=== PATIENT | female | born 1975 | race Caucasian/White ===

== ENCOUNTER 2016-07-15 03:24 | Emergency (ER) | payer OTHER ==
[2016-07-15] MEDS ORDERED: SODIUM CHLORIDE 1,000 ML IV STA ×3 (04:04→08:06)
[2016-07-15] MEDS ORDERED: ONDANSETRON 4 MG/2 ML VIAL IVPUSH ONE (04:04)
[2016-07-15] MEDS ORDERED: morphine CARPU-JECT 4 MG/1 ML DISP.SYRIN IVPUSH ONE (04:04)
[2016-07-15] MEDS ORDERED: morphine CARPU-JECT 4 MG/1 ML DISP.SYRIN ONE (04:13)
[2016-07-15] MEDS ORDERED: ONDANSETRON 4 MG/2 ML VIAL ONE (04:14)
[2016-07-15 04:21] VITALS: BMI 31.3
--- NOTE | 2016-07-15 04:41 | PDOC ---
History of Present Illness - General Chief Complaint: Vomiting/Diarrhea Stated Complaint: VOMITING, DIARRHEA, SOB Time Seen by Provider: 07/15/16 03:49 History Source: Patient Exam Limitations: No Limitations - History of Present Illness Travel History: No Initial Comments: 07/15/16 04:36 41yo Female patient w/ PmHx: Pancreatitis, EtoH dependence presents to ED c/o abd pain, chronic diarrhea and vomiting that began at midnight. Patient reports last drink yesterday. She denies any other complaints at this time. Timing/Duration: reports: getting worse Quality: reports: moderate Abdominal Pain Onset Location: reports: epigastric Pain Radiation: reports: no radiation Activities at Onset: reports: none Treatment Prior to Arrive: worse with: analgesics, antacids, cold pack, heat, laxative, enema, other Aggravating Factors: worse with: None, Defecation, Eating, Emotional upset, Exertion, [place], Movement, Voiding, Change in position Alleviating Factors: worse with: None, Belching, Shallow Breathing, Defecation, Eating, Holding Breath, Passing Gas, Change in Position, Rest, Voiding, Vomiting Past History - Travel Traveled outside of the country in the last 30 days: No Close contact w/someone who was outside of country & ill: No - Past Medical History Allergies/Adverse Reactions: Allergies Allergy/AdvReac Type Severity Reaction Status Date / Time No Known Allergies Allergy Verified 02/29/16 05:55 Home Medications: Ambulatory Orders Calcium Citrate/Vitamin D2 [Joseph-Citrate Plus Vitamin D Tab] 1 each PO DAILY #30 tablet 03/03/16 Thiamine HCl [Vitamin B1 -] 100 mg PO DAILY #30 tablet 03/03/16 Asthma: No Cardiac Disorders: No COPD: No Diabetes: No GI Disorders: Yes (PANCREATITIS) Disorders: No HTN: No Hypercholesterolemia: Yes Kidney Stones: No Suicide Attempt (Hx): No Seizures: No - Surgical History Abdominal Surgery: No Appendectomy: Yes (1984) Cardiac Surgery: No Cholecystectomy: No Lung Surgery: No Neurologic Surgery: No Orthopedic Surgery: No - Immunization History Immunization Up to Date: Yes - Psycho/Social/Smoking Cessation Hx Anxiety: No Suicidal Ideation: No Smoking Status: No Smoking History: Unknown if ever smoked Have you smoked in the past 12 months: No Number of Cigarettes Smoked Daily: 0 Hx Alcohol Use: No Drug/Substance Use Hx: No Substance Use Type: Alcohol Hx Substance Use Treatment: No Abd/GI Specific PMHX - Complaint Specific PMHX Hepatitis: No Pancreatitis: No Review of Systems - Review of Systems Able to Perform ROS?: Yes Is the patient limited Prydeinig proficient: No Constitutional: No: Chills, Fever Respiratory: No: Cough, Shortness of Breath, Stridor, Wheezing Cardiac (ROS): No: Chest Pain, Edema, Lightheadedness, Palpitations, Syncope, Chest Tightness ABD/GI: Yes: Diarrhea, Nausea, Poor Appetite, Poor Fluid Intake, Vomiting, Abdominal cramping. No: Blood Streaked Bowels, Constipated, Rectal Bleeding, Indigestion : No: Burning, Dysuria, Discharge, Hematuria Musculoskeletal: No: Back Pain Integumentary: No: Bruising, Erythema, Pruritus, Rash, Sweating Neurological: No: Headache, Numbness, Seizure, Tingling, Tremors All Other Systems: Reviewed and Negative *Physical Exam - Vital Signs Last Vital Signs Temp Pulse Resp BP Pulse Ox 97.6 F 120 H 20 140/100 100 07/15/16 04:05 07/15/16 04:05 07/15/16 04:05 07/15/16 04:05 07/15/16 04:05 - Physical Exam General Appearance: Yes: Nourished, Appropriately Dressed, Mild Distress. No: Apparent Distress, Moderate Distress, Severe Distress HEENT: positive: EOMI, SASHA, Normal ENT Inspection, Normal Voice, Symmetrical, TMs Normal, Pharynx Normal. negative: Photophobia, Tonsillar Erythema, Nasal Congestion, Rhinorrhea, TM Bulging, TM Dull, TM Erythema Neck: positive: Trachea midline, Supple. negative: Tender, Normal Thyroid, Rigid, Carotid bruit, Stridor, Lymphadenopathy (R), Lymphadenopathy (L) Respiratory/Chest: positive: Lungs Clear, Normal Breath Sounds. negative: Chest Tender, Respiratory Distress, Accessory Muscle Use, Labored Respiration, Rapid RR Cardiovascular: positive: Regular Rhythm, Regular Rate. negative: Edema, JVD, Murmur Gastrointestinal/Abdominal: positive: Normal Bowel Sounds, Tender (Generalized) , Soft, Tenderness. negative: Distended, Guarding, Rebound Musculoskeletal: positive: Normal Inspection. 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
--- NOTE | 2016-07-15 04:44 | PDOC ---
*Physical Exam - Vital Signs Last Vital Signs Temp Pulse Resp BP Pulse Ox 97.6 F 120 H 20 140/100 100 07/15/16 04:05 07/15/16 04:05 07/15/16 04:05 07/15/16 04:05 07/15/16 04:05 ED Treatment Course - LABORATORY CBC & Chemistry Diagram: 07/15/16 04:33 07/15/16 06:20 Medical Decision Making - Medical Decision Making 07/15/16 04:44 agree with care from DARIO Mueller *DC/Admit/Observation/Transfer Diagnosis at time of Disposition: Alcohol dependence, EtOH dependence, Hypomagnesemia, Epigastric abdominal pain - Discharge Dispostion Disposition: HOME Condition at time of disposition: Improved - Referrals Referrals: Solo Tolliver DO [Primary Care Provider] - - Patient Instructions Printed Discharge Instructions: Magnesium, DI for Epigastric Pain, DI for Alcoholic Gastritis Additional Instructions: Please take your acid reflux medication as prescribed and of pain from alcohol use. Please eat small frequent well-balanced meals and stay well-hydrated. Please up with your PCP and travel assistant as needed. Otherwise return to ED if symptoms worsen.
[2016-07-15 04:45] LABS: BASOPHIL 0.3 % (0-2.0); EOSINOPHIL 0.3 % (0-4.5); MCH 35.7 pg (25.7-33.7); MEAN CELL VOLUME 105.2 fl (80-96); MEAN PLT VOLUME 10.9 fl (7.5-11.1); NEUTROPHILS 88.9 % (42.8-82.8); PLATELET COUNT 153 K/MM3 (134-434); RDW 16.9 % (11.6-15.6); WHITE BLOOD COUNT 8.8 K/mm3 (4.0-10.0)
[2016-07-15] MEDS ORDERED: PANTOPRAZOLE SODIUM 40 MG in SODIUM CHLORIDE 100 ML IVPB ONE (04:55)
[2016-07-15] MEDS ORDERED: PANTOPRAZOLE SODIUM 100 ML IVPB ONE (06:00)
--- NOTE | 2016-07-15 06:05 | PDOC ---
*Physical Exam - Vital Signs Last Vital Signs Temp Pulse Resp BP Pulse Ox 97.6 F 120 H 20 140/100 100 07/15/16 04:05 07/15/16 04:05 07/15/16 04:05 07/15/16 04:05 07/15/16 04:05 ED Treatment Course - LABORATORY CBC & Chemistry Diagram: 07/15/16 04:33 07/15/16 06:20 - ADDITIONAL ORDERS Additional order review: Laboratory Results 07/15/16 07/15/16 04:40 04:33 Sodium Cancelled Potassium Cancelled Chloride Cancelled Carbon Dioxide Cancelled Anion Gap Cancelled BUN Cancelled Creatinine Cancelled Creat Clearance w eGFR Cancelled Random Glucose Cancelled Calcium Cancelled Total Bilirubin Cancelled AST Cancelled ALT Cancelled Alkaline Phosphatase Cancelled Creatine Kinase Cancelled Troponin I Cancelled Total Protein Cancelled Albumin Cancelled Total Amylase Cancelled Lipase Cancelled Alcohol, Quantitative 11.3 H* 07/15/16 04:33 RBC 4.20 MCV 105.2 H MCHC 34.0 RDW 16.9 H MPV 10.9 D Neutrophils % 88.9 H D Lymphocytes % 5.8 L D Monocytes % 4.7 Eosinophils % 0.3 Basophils % 0.3 Medical Decision Making - Medical Decision Making 07/15/16 06:00 Patient received in sign out from Britton Mueller. Patient complaining of mid upper abdominal sharp pain since last night. Patient states has history of pancreatitis but also drinks alcohol daily with the last drink at around 10 PM yesterday. Patient also states history of acid reflux. chemistries including lipase and mag pending. Patient also pending Protonix infusion. Patient ordered for second bag of IV fluids secondary to heart rate of 108 at rest which may be likely due to dehydration versus withdrawal. Patient's previous MRI done 2016 shows hepatomegaly with severe fatty infiltration of the liver versus hepatocellular disease. Recommendations to follow-up MRI without and with IV and gadolinium in 4 months. 07/15/16 09:42 Laboratory Tests 07/15/16 07/15/16 06:20 08:25 Magnesium 0.9 L D 1.7 L D Lipase 60 L Pt given 2 grams of magnesium along with 3rd nag of IVF. Pt states feeling better. Pt will be discharged home and recommend abstaining from alcohol. Patient slightly tachycardic. Patient revitalized and has an oral temperature 100.0. Patient ordered for Motrin. 07/15/16 11:07 Patient's heart rate remains at 105-109. Patient pending urinalysis urine and ordered for 1 mg Ativan along with an abdominal CT with IV and by mouth contrast. 07/15/16 11:29 Laboratory Tests 07/15/16 07/15/16 10:55 10:55 Urine Ketones Trace H Urine HCG, Qual Negative 07/15/16 14:04 CT shows marked hepatomegaly with diffuse fatty infiltration. Thickening of the proximal small bowel loops in the mid and right side of the abdomen consistent with enteritis. Inflammatory versus infectious. There is also small amount of free fluid in the right lower quadrant and in the pelvis. Nonvisualization of the appendix. Patient will be discharged home. heart rate 96. *DC/Admit/Observation/Transfer Diagnosis at time of Disposition: Alcohol dependence, Hypomagnesemia, Epigastric abdominal pain EtOH dependence Qualifiers: Substance use status: uncomplicated Qualified Code(s): F10.20 - Alcohol dependence, uncomplicated - Discharge Dispostion Disposition: HOME Condition at time of disposition: Improved - Referrals Referrals: Solo Tolliver DO [Primary Care Provider] - - Patient Instructions Printed Discharge Instructions: DI for Epigastric Pain, Magnesium, DI for Alcoholic Gastritis Additional Instructions: Please take your acid reflux medication as prescribed and of pain from alcohol use. Please eat small frequent well-balanced meals and stay well-hydrated. Please up with your PCP and gas distribution plant operator as needed. Otherwise return to ED if symptoms worsen.
[2016-07-15] MEDS ORDERED: LORAZEPAM CARPU-JECT 2 MG/ML DISP.SYRIN IVPUSH ONE ×2 (06:21→11:03)
[2016-07-15] MEDS ORDERED: LORazepam 2 MG/ML SDV VIAL ONE (06:28)
[2016-07-15 06:58] LABS: MAGNESIUM 0.9 mg/dL (1.8-2.4)
[2016-07-15] MEDS ORDERED: MAGNESIUM SULF 50% (8.12 MEQ/2 ML-1 GM VIAL) IVPB ONE (07:02)
[2016-07-15 07:04] LABS: ALBUMIN 3.2 g/dl (3.4-5.0); ALK PHOS 86 U/L (45-117); ANION GAP 13 (8-16); BILIRUBIN,TOTAL 0.9 mg/dL (0.2-1.0); CALCIUM 7.7 mg/dL (8.5-10.1); CO2 24 mmol/L (21-32); COCKROFT - GAULT 149.9315; CREATININE 0.7 mg/dL (0.55-1.02); GLUCOSE,RANDOM 115 mg/dL (74-106); SGOT/AST 47 U/L (15-37); SGPT/ALT 99 U/L (12-78)
[2016-07-15 07:17] LABS: ANISOCYTOSIS 2+; PLATELET ESTIMATE ADEQUATE (NORMAL)
[2016-07-15] MEDS ORDERED: MAGNESIUM SULF 50% (8.12 MEQ/2 ML-1 GM VIAL) ONE (07:24)
[2016-07-15] MEDS ORDERED: IBUPROFEN 600 MG TABLET (FP) PO ONE ×2 (10:00)
[2016-07-15 10:42] VITALS: TEMP 100
[2016-07-15] MEDS ORDERED: LORAZEPAM CARPU-JECT 2 MG/ML DISP.SYRIN ONE (11:05)
--- NOTE | 2016-07-15 11:19 | EKG ---
Test Reason : Blood Pressure : / mmHG Vent. Rate : 114 BPM Atrial Rate : 114 BPM P-R Int : 138 ms QRS Dur : 070 ms QT Int : 344 ms P-R-T Axes : 041 066 055 degrees QTc Int : 474 ms SINUS TACHYCARDIA OTHERWISE NORMAL ECG WHEN COMPARED WITH ECG OF 29-FEB-2016 07:42, NO SIGNIFICANT CHANGE WAS FOUND Confirmed by JOSEPH SAMUELS MD ([id number]) on 07/15/2016 11:18:48 AM Referred By: Confirmed By:JOSEPH SAMUELS MD
[2016-07-15 11:24] LABS: URINE APPEARANCE CLEAR; URINE BILIRUBIN NEGATIVE (NEGATIVE); URINE BLOOD NEGATIVE (NEGATIVE); URINE COLOR YELLOW; URINE GLUCOSE (UA) NEGATIVE (NEGATIVE); URINE KETONE TRACE (NEGATIVE); URINE LEUK ESTERASE NEGATIVE (NEGATIVE); URINE NITRITE NEGATIVE (NEGATIVE); URINE PROTEIN NEGATIVE (NEGATIVE); URINE UROBILINOGEN NEGATIVE E.U./dl (0.2-1.0)
[2016-07-15 14:34] VITALS: BP 106/80; PULSE 96
== END 2016-07-15 14:35 | disposition home or self-care (01) ==
LOC: JER 03:24
PROC: 3E033NZ Introduction of Analgesics, Hypnotics, Sedatives into Peripheral Vein, Percutaneous Approach (ICD-10-PCS; principal; 2016-07-15)
PROC: 3E033GC Introduction of Other Therapeutic Substance into Peripheral Vein, Percutaneous Approach (ICD-10-PCS; 2016-07-15)
PROC: 3E0337Z Introduction of Electrolytic and Water Balance Substance into Peripheral Vein, Percutaneous Approach (ICD-10-PCS; 2016-07-15)
DX: F10.20 Alcohol dependence, uncomplicated (principal); R10.13 Epigastric pain; E83.42 Hypomagnesemia; K21.9 Gastro-esophageal reflux disease without esophagitis; K86.0 Alcohol-induced chronic pancreatitis; E78.00 Pure hypercholesterolemia, unspecified
CPT/HCPCS: 36415; 74177-TC; 80053; 80307; 81003; 83690; 83735; 84703; 85025; 93005; 93010; 96361; 96365; 96375; 96376; 99284-25; Q9967

== ENCOUNTER 2016-10-11 15:17 | Observation (INO) | payer OTHER ==
[2016-10-11] MEDS ORDERED: methylPREDNISolone NA SUCC 125 MG/2 ML VIAL ONE (16:23)
[2016-10-11] MEDS ORDERED: FAMOTIDINE 20 MG/50 ML IVPB 50 ML IVPB ONE (16:26)
[2016-10-11] MEDS ORDERED: methylPREDNISolone NA SUCC 125 MG/2 ML VIAL IVPB ONE (16:28)
[2016-10-11] MEDS ORDERED: SODIUM CHLORIDE 1,000 ML IV STA (16:28)
[2016-10-11] MEDS ORDERED: ALBUTEROL SO4 2.5/IPRATROPIUM 0.5 INH SOL 3 ML VIAL.NEB. NEB ONE (16:32)
[2016-10-11] MEDS ORDERED: ONDANSETRON 4 MG/2 ML VIAL IVPUSH ONE (16:35)
[2016-10-11 17:15] LABS: ALK PHOS 131 U/L (45-117); ANION GAP 20 (8-16); BILIRUBIN,TOTAL 1.5 mg/dL (0.2-1.0); CALCIUM 9.5 mg/dL (8.5-10.1); CO2 26 mmol/L (21-32); CREATININE 0.7 mg/dL (0.55-1.02); GLUCOSE,RANDOM 138 mg/dL (74-106); SGOT/AST 126 U/L (15-37); SGPT/ALT 142 U/L (12-78); TOT PROT 7.7 g/dl (6.4-8.2)
--- NOTE | 2016-10-11 17:15 | PDOC ---
History of Present Illness <Junito Garay - Last Filed: 10/12/16 00:48> - General History Source: Patient Exam Limitations: No Limitations - History of Present Illness Initial Comments: 10/11/16 17:16 41-year-old female with history of pancreatitis, alcohol abuse, and anxiety presents to the ED with complaints of vomiting this morning without abdominal pain causing her mild this. Patient states took a magnesium tablet since when she vomits she normally has a low magnesium and was recommended by her physician to take a magnesium tablet. Patient states following swallowing the magnesium tablet she had the feeling as if something was lodged in her throat causing her increased salivation and increased anxiety. Patient currently denies difficulty breathing, abdominal pain, dizziness, or chest pain. Patient does state feeling as if something is stuck in her throat and has increased anxiety. Patient states last drink was yesterday evening. Timing/Duration: 1-3 hours Severity: moderate Associated Symptoms: reports: nausea/vomiting. denies: shortness of breath <Mandi Biggs - Last Filed: 10/12/16 13:45> - General Chief Complaint: Shortness of Breath Stated Complaint: SHORTNESS OF BREATH Time Seen by Provider: 10/11/16 15:42 Past History <Junito Garay - Last Filed: 10/12/16 00:48> - Travel Traveled outside of the country in the last 30 days: No Close contact w/someone who was outside of country & ill: No - Past Medical History Asthma: No Cardiac Disorders: No COPD: No Diabetes: No GI Disorders: Yes (PANCREATITIS) Disorders: No HTN: No Hypercholesterolemia: Yes Kidney Stones: No Suicide Attempt (Hx): No Seizures: No - Surgical History Abdominal Surgery: No Appendectomy: Yes (1984) Cardiac Surgery: No Cholecystectomy: No Lung Surgery: No Neurologic Surgery: No Orthopedic Surgery: No - Immunization History Immunization Up to Date: Yes - Psycho/Social/Smoking Cessation Hx Anxiety: No Suicidal Ideation: No Smoking Status: No Smoking History: Never smoked Have you smoked in the past 12 months: No Number of Cigarettes Smoked Daily: 0 Hx Alcohol Use: Yes (3 bottles of wine/night) Drug/Substance Use Hx: No Substance Use Type: Alcohol Hx Substance Use Treatment: No Patient Lives Alone: No Lives with/in: spouse/SO <Mandi Biggs - Last Filed: 10/12/16 13:45> - Past Medical History Allergies/Adverse Reactions: Allergies Allergy/AdvReac Type Severity Reaction Status Date / Time No Known Allergies Allergy Verified 10/11/16 19:48 Home Medications: Ambulatory Orders Lipase/Protease/Amylase [Abdiaziz Bingham 36,000 Units Capsule] 1 each PO TID 07/15/16 Quetiapine Fumarate [Seroquel -] 25 mg PO HS 07/15/16 Tramadol HCl [Ultram] 50 mg PO Q6H 07/15/16 Review of Systems - Review of Systems Able to Perform ROS?: Yes Constitutional: No: Symptoms Reported HEENTM: Yes: Difficulty Swallowing Respiratory: No: Symptoms reported Cardiac (ROS): No: Symptoms Reported ABD/GI: Yes: Nausea, Vomiting. No: Abdominal cramping Musculoskeletal: No: Symptoms Reported Integumentary: No: Symptoms Reported Neurological: No: Symptoms reported, Dizziness Psychiatric: Yes: Anxiety Endocrine: No: Symptoms Reported <Mandi Biggs - Last Filed: 10/12/16 13:45> *Physical Exam - Vital Signs Last Vital Signs Temp Pulse Resp BP Pulse Ox 97.9 F 96 H 16 146/82 99 10/11/16 15:30 10/11/16 22:46 10/11/16 22:46 10/11/16 22:46 10/11/16 22:46 <Junito Garay - Last Filed: 10/12/16 00:48> - Vital Signs Last Vital Signs Temp Pulse Resp BP Pulse Ox 97.9 F 117 H 24 152/67 97 10/11/16 15:30 10/11/16 15:30 10/11/16 15:30 10/11/16 15:30 10/11/16 15:30 - Physical Exam General Appearance: Yes: Nourished, Appropriately Dressed, Mild Distress HEENT: positive: EOMI, SASHA, TMs Normal, Pharynx Normal (Uvula midline and non- elongated but slightly widened), Muffled/Hoarse voice, Other (no trismus. no drooling). negative: Pharyngeal Erythema, Tonsillar Exudate, Tonsillar Erythema Neck: positive: Normal Thyroid, Supple. negative: Lymphadenopathy (R), Lymphadenopathy (L) Respiratory/Chest: positive: Lungs Clear, Normal Breath Sounds. negative: Respiratory Distress, Accessory Muscle Use, Stridor, Wheezing Cardiovascular: positive: Regular Rhythm, Tachycardia. negative: Murmur Gastrointestinal/Abdominal: positive: Soft. negative: Tenderness Integumentary: positive: Normal Color, Warm, Moist Neurologic: positive: Motor Strength 5/5. negative: Normal Mood/Affect (mildly anxious) <Mandi Biggs - Last Filed: 10/12/16 13:45> ED Treatment Course - LABORATORY CBC & Chemistry Diagram: 10/11/16 16:40 10/11/16 16:40 - ADDITIONAL ORDERS Additional order review: Laboratory Results 10/11/16 10/11/16 10/11/16 16:42 16:40 16:40 Sodium 139 Potassium 3.1 L Chloride 93 L D Carbon Dioxide 26 Anion Gap 20 H BUN 11 D Creatinine 0.7 Creat Clearance w eGFR > 60 Random Glucose 138 H Calcium 9.5 D Magnesium 1.8 Total Bilirubin 1.5 H D AST 126 H D ALT 142 H D Alkaline Phosphatase 131 H D Creatine Kinase Troponin I Total Protein 7.7 D Albumin 4.0 D Urine HCG, Qual Negative 10/11/16 16:30 Sodium Potassium Chloride Carbon Dioxide Anion Gap BUN Creatinine Creat Clearance w eGFR Random Glucose Calcium Magnesium Total Bilirubin AST ALT Alkaline Phosphatase Creatine Kinase 54 Troponin I < 0.02 Total Protein Albumin Urine HCG, Qual 10/11/16 16:40 RBC 4.43 MCV 102.3 H MCHC 34.9 RDW 14.0 D MPV 9.7 D Neutrophils % Y Lymphocytes % Y - Medications Given in the ED: ED Medications Discontinued Medications Generic Name Dose Route Start Last Admin Trade Name Freq PRN Reason Stop Dose Admin Diphenhydramine HCl 50 mg 10/11/16 16:28 10/11/16 16:36 Benadryl Injection - IVPB 10/11/16 16:29 50 mg ONCE ONE Administration Glucagon 1 mg 10/11/16 17:23 10/11/16 17:30 Glucagon - IVPUSH 10/11/16 17:24 1 mg ONCE ONE Administration Sodium Chloride 1,000 mls @ 1,000 mls/hr 10/11/16 16:28 10/11/16 16:36 Normal Saline - IV 10/11/16 17:27 1,000 mls/hr ASDIR STA Administration Potassium Chloride 100 mls @ 100 mls/hr 10/11/16 17:45 10/11/16 21:12 Potassium Chloride 10 Meq Premix Ivpb - IVPB 10/11/16 20:44 100 mls/hr Q60M DERICK Administration Pantoprazole Sodium 100 mls @ 200 mls/hr 10/11/16 20:53 10/11/16 22:44 Protonix 40mg Ivpb (Pre-Docked) IVPB 10/11/16 21:22 200 mls/hr ONCE ONE Administration Lorazepam 1 mg 10/11/16 17:58 10/11/16 18:15 Ativan Injection - IVPUSH 10/11/16 17:59 1 mg ONCE ONE Administration Methylprednisolone Sodium Succinate 125 mg 10/11/16 16:28 10/11/16 16:36 Solu-Medrol - IVPB 10/11/16 16:29 125 mg ONCE ONE Administration Ondansetron HCl 4 mg 10/11/16 16:35 10/11/16 16:44 Zofran Injection IVPUSH 10/11/16 16:36 4 mg ONCE ONE Administration <Junito Garay - Last Filed: 10/12/16 00:48> - LABORATORY CBC & Chemistry Diagram: 10/12/16 06:05 10/12/16 06:05 - ADDITIONAL ORDERS Additional order review: Laboratory Results 10/11/16 16:42 Urine HCG, Qual Negative - RADIOLOGY Radiology Studies Ordered: Category Date Time Status NECK SOFT TISSUE [RAD] Stat Radiology 10/11/16 16:26 Ordered - Medications Given in the ED: ED Medications Discontinued Medications Generic Name Dose Route Start Last Admin Trade Name Freq PRN Reason Stop Dose Admin Diphenhydramine HCl 50 mg 10/11/16 16:28 10/11/16 16:36 Benadryl Injection - IVPB 10/11/16 16:29 50 mg ONCE ONE Administration Methylprednisolone Sodium Succinate 125 mg 10/11/16 16:28 10/11/16 16:36 Solu-Medrol - IVPB 10/11/16 16:29 125 mg ONCE ONE Administration Ondansetron HCl 4 mg 10/11/16 16:35 10/11/16 16:44 Zofran Injection IVPUSH 10/11/16 16:36 4 mg ONCE ONE Administration <Mandi Biggs - Last Filed: 10/12/16 13:45> Medical Decision Making - Medical Decision Making 10/11/16 17:05 Patient arrives with complaints of difficulty swallowing as if something is stuck in her throat after taking a magnesium tablet which she takes if she has episodes of vomiting as recommended by her PCP. Patient states has had intermittent vomiting for years with history of pancreatitis and alcohol abuse. Patient exam had a froglike voice was mildly tachycardic and anxious. Patient immediately had IV access established. Patient also had labs, Solu-Medrol Benadryl and IV fluids initiated. Patient ordered for soft tissue of the neck to rule out foreign body and edema. Patient vomited once here in the ED which contained food particles and frothy sputum. 10/11/16 17:38 Laboratory Tests 10/11/16 10/11/16 10/11/16 16:40 16:40 16:40 WBC 6.0 D Hgb 15.8 H Hct 45.3 H MCV 102.3 H MCH 35.7 H Neutrophils % Y Sodium 139 Potassium 3.1 L Chloride 93 L D Carbon Dioxide 26 Anion Gap 20 H BUN 11 D Creatinine 0.7 Creat Clearance w eGFR > 60 Calcium 9.5 D Magnesium Pending Total Bilirubin 1.5 H D AST 126 H D ALT 142 H D Alkaline Phosphatase 131 H D Urine HCG, Qual 10/11/16 16:42 WBC Hgb Hct MCV MCH Neutrophils % Sodium Potassium Chloride Carbon Dioxide Anion Gap BUN Creatinine Creat Clearance w eGFR Calcium Magnesium Total Bilirubin AST ALT Alkaline Phosphatase Urine HCG, Qual Negative Patient ordered for glucose on an 3 months of potassium. X-ray shows pharyngeal edema/steepling without signs of epiglottitis on oblique view. Patient currently maintaining sats at 98% without difficulty breathing. Patient will be admitted to hospital 10/11/16 18:24 Laboratory Tests 10/11/16 16:40 Magnesium 1.8 Heart rate 105 to 108. Patient states feeling some relief after receiving IV Solu-Medrol. Patient with mild tremors. Patient ordered for 1 mg of Ativan IV push. On soft tissue neck x-ray there is noted steepling and laryngeal edema. Patient will be admitted to [facility]. Patient ordered for replacment potassium IV 10/11/16 19:07 [facility] is admitting to the hospitalist group this weekend. Patient was admitted to [facility] observation under Dr. beckford <Mandi Biggs - Last Filed: 10/12/16 13:45> *DC/Admit/Observation/Transfer <Junito Garay - Last Filed: 10/12/16 00:48> - Discharge Dispostion Admit: Yes <Mandi Biggs - Last Filed: 10/12/16 13:45> Diagnosis at time of Disposition: Alcohol dependence, Hypokalemia, Alcohol-induced anxiety disorder, Laryngeal edema - Referrals
[2016-10-11 17:16] LABS: MCH 35.7 pg (25.7-33.7); MCHC 34.9 g/dl (32.0-36.0); MEAN CELL VOLUME 102.3 fl (80-96); MEAN PLT VOLUME 9.7 fl (7.5-11.1); PLATELET COUNT 164 K/MM3 (134-434)
[2016-10-11] MEDS ORDERED: GLUCAGON 1 MG KIT IVPUSH ONE (17:23)
[2016-10-11] MEDS ORDERED: GlUCAGON HUMAN RECOMBINANT 1 MG/VIAL ONE (17:27)
[2016-10-11] MEDS ORDERED: LORazepam 2 MG/ML SDV VIAL ONE (18:00)
[2016-10-11] MEDS ORDERED: KCL 10 MEQ IVPB 100 ML IVPB ONE ×3 (18:00→21:19)
[2016-10-11] MEDS: KCL 10 MEQ IVPB 100 ML IVPB SCH ×3 (19:17→21:12)
--- NOTE | 2016-10-11 19:38 | HP ---
CHIEF COMPLAINT: Difficulty Swallowing, Facial Swelling PCP: HISTORY OF PRESENT ILLNESS: This is a 41 y/o woman with a past medical history of HTN, GERD. Who presents to the emergency department with dysphagia, and facial swelling x today. Patient reports having 2-3 episodes of vomiting, then took a magnesium supplement. she states" the pill feels like it was stuck in my throat, I tried to drink water to push it down". She reports then noting her face appeared more swollen then normal. Patient denies history of Angioedema or HAE. Patient denies fever, chills, cough, SOB, CP, AP, constipation, melena, hematochezia, dysuria. ER course was notable for: (1) Soft tissue Neck- no FB (2) K 3.1 (3) AST 126, ALT 141, Alk phos 131 Recent Travel: None PAST MEDICAL HISTORY: Hypertension Pancreatitis GERD PAST SURGICAL HISTORY: Appendectomy C- section Social History: Smoking: Never Alcohol: 2 Bottles of Wine daily Drugs: Denies Lives alone, Independent Family History: Non-contributory Allergies No Known Allergies Allergy (Verified 02/29/16 05:55) HOME MEDICATIONS: Home Medications Medication Instructions Recorded Lipase/Protease/Amylase [Abdiaziz Bingham 1 each PO TID 07/15/16 36,000 Units Capsule] Quetiapine Fumarate [Seroquel -] 25 mg PO HS 07/15/16 Tramadol HCl [Ultram] 50 mg PO Q6H 07/15/16 REVIEW OF SYSTEMS CONSTITUTIONAL: Absent: fever, chills, diaphoresis, generalized weakness, malaise, loss of appetite, weight change HEENT: difficulty swallowing, Absent: rhinorrhea, nasal congestion, throat pain, throat swelling, mouth swelling, ear pain, eye pain, visual changes CARDIOVASCULAR: Absent: chest pain, syncope, palpitations, irregular heart rate, lightheadedness , peripheral edema RESPIRATORY: Absent: cough, shortness of breath, dyspnea with exertion, orthopnea, wheezing, stridor, hemoptysis GASTROINTESTINAL: diarrhea Absent: abdominal pain, abdominal distension, nausea, vomiting, constipation, melena, hematochezia GENITOURINARY: Absent: dysuria, frequency, urgency, hesitancy, hematuria, flank pain, genital pain MUSCULOSKELETAL: Absent: myalgia, arthralgia, joint swelling, back pain, neck pain SKIN: Absent: rash, itching, pallor HEMATOLOGIC/IMMUNOLOGIC: Absent: easy bleeding, easy bruising, lymphadenopathy, frequent infections ENDOCRINE: Absent: unexplained weight gain, unexplained weight loss, heat intolerance, cold intolerance NEUROLOGIC: Absent: headache, focal weakness or paresthesias, dizziness, unsteady gait, seizure, mental status changes, bladder or bowel incontinence PSYCHIATRIC: Absent: anxiety, depression, suicidal or homicidal ideation, hallucinations. PHYSICAL EXAMINATION Vital Signs - 24 hr 10/11/16 10/11/16 15:30 17:36 Temperature 97.9 F Pulse Rate 117 H Pulse Rate [ 96 H Apical] Respiratory 24 21 Rate Blood Pressure 152/67 Blood Pressure 151/91 [Left Arm] O2 Sat by Pulse 97 99 Oximetry (%) GENERAL: Awake, alert, and fully oriented, in no acute distress. HEAD: Normal with no signs of trauma. EYES: Pupils equal, round and reactive to light, extraocular movements intact, sclera anicteric, conjunctiva clear. No lid lag. EARS, NOSE, THROAT: Ears normal, nares patent, oropharynx clear without exudates. Moist mucous membranes. Uvula mid-line with minimal edema NECK: Normal range of motion, supple without lymphadenopathy, JVD, or masses. Edema to neck LUNGS: Breath sounds equal, clear to auscultation bilaterally. No wheezes, and no crackles. No accessory muscle use. HEART: Tachycardia, normal S1 and S2 without murmur, rub or gallop. ABDOMEN: Soft, nontender, not distended, normoactive bowel sounds, no guarding, no rebound, no masses. No hepatomegaly or splenomegaly. MUSCULOSKELETAL: Normal range of motion at all joints. No bony deformities or tenderness. No CVA tenderness. UPPER EXTREMITIES: 2+ pulses, warm, well-perfused. No cyanosis. No clubbing. No peripheral edema. LOWER EXTREMITIES: 2+ pulses, warm, well-perfused. No calf tenderness. No peripheral edema. NEUROLOGICAL: Cranial nerves II-XII intact. Normal speech. Gait not observed. PSYCHIATRIC: Cooperative. Good eye contact. Appropriate mood and affect. SKIN: Warm, dry, normal turgor, no rashes or lesions noted, normal capillary refill. Erythema Laboratory Results - last 24 hr 10/11/16 10/11/16 10/11/16 16:40 16:40 16:40 WBC 6.0 D RBC 4.43 Hgb 15.8 H Hct 45.3 H MCV 102.3 H MCH 35.7 H MCHC 34.9 RDW 14.0 D Plt Count 164 MPV 9.7 D Neutrophils % Y Lymphocytes % Y Sodium 139 Potassium 3.1 L Chloride 93 L D Carbon Dioxide 26 Anion Gap 20 H BUN 11 D Creatinine 0.7 Creat Clearance w eGFR > 60 Random Glucose 138 H Calcium 9.5 D Magnesium 1.8 Total Bilirubin 1.5 H D AST 126 H D ALT 142 H D Alkaline Phosphatase 131 H D Total Protein 7.7 D Albumin 4.0 D Urine HCG, Qual 10/11/16 16:42 WBC RBC Hgb Hct MCV MCH MCHC RDW Plt Count MPV Neutrophils % Lymphocytes % Sodium Potassium Chloride Carbon Dioxide Anion Gap BUN Creatinine Creat Clearance w eGFR Random Glucose Calcium Magnesium Total Bilirubin AST ALT Alkaline Phosphatase Total Protein Albumin Urine HCG, Qual Negative ASSESSMENT/PLAN: This is a 41 y/o woman with a PMH: Chronic Alcoholism, Chronic Pancreatitis. Placed on Tele Observation for Laryngeal Edema for evaluation of their emergent condition. Problem List - Problem (1) Laryngeal edema Assessment/Plan: - Cardiac monitoring - Glucagon, Benadryl given in ED - On exam: no stridor, no drooling, no tongue protrusion - Soft tissue neck xray- reviewed - NPO - Appreciate ENT consult - Gentle IVF Code(s): J38.4 - EDEMA OF LARYNX (2) Hypokalemia Assessment/Plan: - Likely secondary to Chronic Alcohol Abuse - Continue cardiac monitoring - K- riders given in ED - Repeat BMP - Will replete as indicated - EKG- reviewed Code(s): E87.6 - HYPOKALEMIA (3) Alcohol dependence Assessment/Plan: - Counseled on Alcohol Cessation, patient is amendable - Continue cardiac monitoring- DT tremors - CIWA-Ar Scale 5 - Appreciate Detox Consult - Ativan given in ED - Ativan prn - Hold Librum secondary to transaminitis Code(s): F10.20 - ALCOHOL DEPENDENCE, UNCOMPLICATED (4) Transaminitis Assessment/Plan: - Likely secondary to Alcohol Abuse - Abdominal US - Hepatitis Panel - Monitor LFTs - Hold Tylenol, Librium Code(s): R74.0 - NONSPEC ELEV OF LEVELS OF TRANSAMNS & LACTIC ACID DEHYDRGNSE (5) DVT prophylaxis Assessment/Plan: - OOB - SCDs Code(s): [id number] - Visit type - Emergency Visit Emergency Visit: Yes ED Registration Date: 10/11/16 Care time: The patient presented to the Emergency Department on the above date and was hospitalized for further evaluation of their emergent condition. - New Patient This patient is new to me today: Yes Date on this admission: 10/11/16 - Critical Care Critical Care patient: No
[2016-10-11 20:05] LABS: TOTAL CELLS COUNTED 100
[2016-10-11 20:10] LABS: PLATELET ESTIMATE ADEQUATE
[2016-10-11] MEDS ORDERED: PANTOPRAZOLE SODIUM 100 ML IVPB ONE ×2 (20:53→21:19)
[2016-10-11 21:21] LABS: CPK 54 IU/L (26-192)
[2016-10-11 21:22] LABS: TROPONIN I < 0.02 ng/ml (0.00-0.05)
[2016-10-11] MEDS: SODIUM CHLORIDE 1,000 ML IV SCH (22:44)
[2016-10-12 00:58] LABS: CPK 65 IU/L (26-192); TROPONIN I < 0.02 ng/ml (0.00-0.05)
[2016-10-12] MEDS ORDERED: methylPREDNISolone NA SUCC 40 MG/1 ML VIAL ONE (02:59)
[2016-10-12] MEDS: methylPREDNISolone NA SUCC 40 MG/1 ML VIAL IVPB SCH ×3 (03:06→16:51)
[2016-10-12] MEDS ORDERED: DIPHENOXYLATE 2.5/ATROPINE.025 1 COMBO TABLET PO ONE (03:07)
[2016-10-12 06:32] LABS: BASOPHIL 0.1 % (0-2.0); MCH 36.2 pg (25.7-33.7); MCHC 35.1 g/dl (32.0-36.0); MEAN PLT VOLUME 9.4 fl (7.5-11.1); NEUTROPHILS 86.6 % (42.8-82.8); PLATELET COUNT 127 K/MM3 (134-434); RDW 14.3 % (11.6-15.6); WHITE BLOOD COUNT 6.2 K/mm3 (4.0-10.0)
[2016-10-12 07:05] LABS: ANION GAP 12 (8-16); CO2 25 mmol/L (21-32); CREATININE 0.8 mg/dL (0.55-1.02); GLUCOSE,RANDOM 184 mg/dL (74-106); MAGNESIUM 1.7 mg/dL (1.8-2.4); PHOSPHOROUS 2.4 mg/dL (2.5-4.9)
[2016-10-12 07:11] LABS: CPK 122 IU/L (26-192); TROPONIN I < 0.02 ng/ml (0.00-0.05)
[2016-10-12] MEDS ORDERED: LORazepam 2 MG/ML SDV VIAL IVPUSH PRN ×2 (08:59→18:58)
[2016-10-12 09:34] LABS: ALBUMIN 3.5 g/dl (3.4-5.0); ALK PHOS 116 U/L (45-117); BILIRUBIN,DIRECT 0.9 mg/dL (0.0-0.2); BILIRUBIN,TOTAL 2.2 mg/dL (0.2-1.0); SGOT/AST 159 U/L (15-37); SGPT/ALT 146 U/L (12-78); TOT PROT 6.6 g/dl (6.4-8.2)
[2016-10-12] MEDS ORDERED: MAGNESIUM OXIDE 400 MG TABLET (FP) PO ONE (09:35)
[2016-10-12] MEDS ORDERED: NAPH,MB-DB/K PH,MBDB POWDER PACKET PO ONE (09:35)
[2016-10-12 11:11] VITALS: BMI 34.4
[2016-10-12] MEDS ORDERED: IBUPROFEN 400 MG TABLET (FP) PO ONE (12:30)
--- NOTE | 2016-10-12 12:53 | EKG ---
Test Reason : Blood Pressure : / mmHG Vent. Rate : 095 BPM Atrial Rate : 095 BPM P-R Int : 150 ms QRS Dur : 070 ms QT Int : 370 ms P-R-T Axes : 042 031 040 degrees QTc Int : 464 ms NORMAL SINUS RHYTHM NONSPECIFIC ST ABNORMALITY ABNORMAL ECG WHEN COMPARED WITH ECG OF 15-JUL-2016 04:32, NO SIGNIFICANT CHANGE WAS FOUND Confirmed by MARIBEL HERNANDEZ MD ([id number]) on 10/12/2016 12:53:30 PM Referred By: Confirmed By:MARIBEL HERNANDEZ MD
[2016-10-12] MEDS ORDERED: IBUPROFEN 100 MG/5 ML UNIT DOSE CUPS ONE (13:26)
[2016-10-12] MEDS ORDERED: LIPASE/PROTEASE/AMYLASE 36,000 UNIT CAPSULE PO SCH (14:00)
--- NOTE | 2016-10-12 16:05 | PN ---
Progress Note (short form) - Note Progress Note: Subjective: The patient was seen and examined at the beside, she denies any pain in her throat. No stridor or difficulty breathing noted. She reports she quit drinking alcohol about 1 month ago and then drank 1 bottle of wine on Thursday night. Liver enzymes elevated, liver ultrasound limited with hepatomegaly and diffuse fatty infiltration of the liver Current Medications Generic Name Dose Route Start Last Admin Trade Name Freq PRN Reason Stop Dose Admin Sodium Chloride 1,000 mls @ 83 mls/hr 10/11/16 21:00 10/11/16 22:44 Normal Saline - IV 83 mls/hr ASDIR DERICK Administration Lorazepam 1 mg 10/12/16 08:59 Ativan Injection - IVPUSH Q6H PRN ANXIETY Methylprednisolone Sodium Succinate 40 mg 10/12/16 03:00 10/12/16 09:39 Solu-Medrol - IVPB 40 mg Q6H-IV DERICK Administration Pancrelipase 1 cap 10/12/16 14:00 10/12/16 14:[address] 36,000 Units Capsule PO 1 cap TID DERICK Administration Quetiapine Fumarate 25 mg 10/12/16 22:00 Seroquel - PO HS DERICK Objective: Vital Signs Period Temp Pulse Resp BP Sys/Suárez Pulse Ox Last 24 Hr 98.3 F-98.9 F 93-113 16-21 130-151/78-92 94-99 Physical Exam: General: NAD, A&Ox3, obese Lungs: CTA bilaterally Heart: RRR, S1S2 Abd: Soft, non-tender, non-distended. Normoactive bowel sounds Ext: Warm, well-perfused. 2+ DP/PT bilaterally Neuro: CN 2-12 intact. No evidence of tremors on exam CBCD WBC 6.2 K/mm3 (4.0-10.0) 10/12/16 06:05 RBC 3.89 M/mm3 (3.60-5.2) 10/12/16 06:05 Hgb 14.1 GM/dL (10.7-15.3) D 10/12/16 06:05 Hct 40.0 % (32.4-45.2) 10/12/16 06:05 MCV 103.0 fl (80-96) H 10/12/16 06:05 MCHC 35.1 g/dl (32.0-36.0) 10/12/16 06:05 RDW 14.3 % (11.6-15.6) 10/12/16 06:05 Plt Count 127 K/MM3 (134-434) L D 10/12/16 06:05 MPV 9.4 fl (7.5-11.1) 10/12/16 06:05 CMP Sodium 141 mmol/L (136-145) 10/12/16 06:05 Potassium 3.5 mmol/L (3.5-5.1) 10/12/16 06:05 Chloride 104 mmol/L (98-107) D 10/12/16 06:05 Carbon Dioxide 25 mmol/L (21-32) 10/12/16 06:05 Anion Gap 12 (8-16) 10/12/16 06:05 BUN 11 mg/dL (7-18) 10/12/16 06:05 Creatinine 0.8 mg/dL (0.55-1.02) 10/12/16 06:05 Creat Clearance w eGFR > 60 (>60) 10/11/16 16:40 Random Glucose 184 mg/dL (74-106) H D 10/12/16 06:05 Calcium 8.0 mg/dL (8.5-10.1) L 10/12/16 06:05 Total Bilirubin 2.2 mg/dL (0.2-1.0) H D 10/12/16 06:05 AST 159 U/L (15-37) H D 10/12/16 06:05 ALT 146 U/L (12-78) H 10/12/16 06:05 Alkaline Phosphatase 116 U/L (45-117) 10/12/16 06:05 Total Protein 6.6 g/dl (6.4-8.2) 10/12/16 06:05 Albumin 3.5 g/dl (3.4-5.0) 10/12/16 06:05 CARDIAC ENZYMES Creatine Kinase 122 IU/L (26-192) 10/12/16 06:05 Troponin I < 0.02 ng/ml (0.00-0.05) 10/12/16 06:05 Assessment: This is a 41 year old female with PMHx of HTN, GERD, who presented to the ED with dysphagia and feeling like a pill was stuck in her throat after taking a magnesium supplement. Plan: 1) Medication impaction: - Resolved after receiving Benadryl, Solumedrol, Glucagon - Neck x-ray with prominent oropharynx - No difficulty swallowing - CL diet trial - F/u ENT evaluation 2) Transaminitis: - Higher than baseline - Hx of chronic alcoholism, last drink on Thursday night - No evidence of tremors - Liver ultrasound limited with hepatomegaly and diffuse fatty infiltration of the liver - F/u acute hepatitis panel - Trend liver enzymes - Avoid hepatotoxic agents 3) HTN: - Not on home medications, continue to monitor 4) F/E/N: - CL diet - Monitor electrolytes 5) Prophylaxis: - OOB ambulating - SCDs bilaterally 6) Dispo: - Once condition improves CODE STATUS: FULL CODE Visit type - Emergency Visit Emergency Visit: Yes ED Registration Date: 10/11/16 Care time: The patient presented to the Emergency Department on the above date and was hospitalized for further evaluation of their emergent condition. - New Patient This patient is new to me today: Yes Date on this admission: 10/12/16 - Critical Care Critical Care patient: No
[2016-10-12] MEDS: SODIUM CHLORIDE 1,000 ML IV SCH (17:12)
[2016-10-12] MEDS ORDERED: SODIUM CHLORIDE 1,000 ML IV SCH (18:58)
[2016-10-12] MEDS ORDERED: QUEtiapine FUMARATE 25 MG TABLET (FP) PO SCH ×2 (22:00)
[2016-10-12] MEDS: MINERAL OIL/PET HY-PHL TOPICAL OINTMENT 454 GM JAR TP SCH (22:01)
[2016-10-12] MEDS ORDERED: PT OWN MED DRAWER 7, Y5N ONE (22:09)
[2016-10-12] MEDS: LIPASE/PROTEASE/AMYLASE 36,000 UNIT CAPSULE PO SCH (22:10)
[2016-10-13] MEDS: LIPASE/PROTEASE/AMYLASE 36,000 UNIT CAPSULE PO SCH (06:21)
[2016-10-13 09:02] VITALS: BP 115/70; PULSE 83; TEMP 98.7
--- NOTE | 2016-10-13 09:04 | CON.ENT ---
Consult Consult Specialty:: otolaryngology - History of Present Illness Chief Complaint: throat evaluation History of Present Illness: 41F hx of pancreatitis, GERD, alcohol abuse, HTN has been seeing GI for stomach "issues" lately. She has a history of vomiting periodically, for which she was advised to take magnesium pills given low magnesium levels. She took one of these pills prior to presentation to the ER the other night, and felt it stick in her throat. This led to anxiety and salivation. After treatment in the ER, she vomited. She states that it feels the pill has gone down normally, but she has some minimal residual scratchiness. She denies voice change, shortness of breath, or dysphagia. There is no hemoptysis or weight loss. She has started a liquid diet and doing fine with this. - History Source History Provided By: Patient Limitations to Obtaining History: No Limitations - Past Medical History Cardio/Vascular: Yes: HTN Gastrointestinal: Yes: GERD, Pancreatitis ...LMP: 02/22/16 Psych: Yes: Addictions (alcohol abuse) - Past Surgical History Past Surgical History: Yes: Appendectomy, (x2) - Alcohol/Substance Use Hx Alcohol Use: Yes (3 bottles of wine/night) Number of Drinks Daily: 4 - Smoking History Smoking history: Never smoked Have you smoked in the past 12 months: No Aproximately how many cigarettes per day: 0 - Social History Usual Living Arrangement: With Parent ADL: Independent History of Recent Travel: No Home Medications - Allergies Allergies/Adverse Reactions: Allergies Allergy/AdvReac Type Severity Reaction Status Date / Time No Known Allergies Allergy Verified 10/11/16 19:48 - Home Medications Home Medications: Ambulatory Orders Lipase/Protease/Amylase [Abdiaziz Bingham 36,000 Units Capsule] 1 each PO TID 07/15/16 Quetiapine Fumarate [Seroquel -] 25 mg PO HS 07/15/16 Tramadol HCl [Ultram] 50 mg PO Q6H 07/15/16 Family Disease History - Family Disease History Family Disease History: Diabetes: Mother, Heart Disease: Father Review of Systems - Review of Systems Constitutional: denies: Fever HENT: reports: Difficult Swallowing, Throat Pain Physical Exam-ENT Vital Signs: Vital Signs Temperature 98.2 F 10/13/16 06:00 Pulse Rate 75 10/13/16 06:00 Respiratory Rate 20 10/13/16 06:00 Blood Pressure 118/74 10/13/16 06:00 O2 Sat by Pulse Oximetry (%) 98 10/13/16 03:00 Constitutional: Yes: Well Nourished, No Distress, Calm, Other (nml voice. no stridor/strertor. no drooling.) Head: Yes: WNL Face: Yes: WNL Eyes: Yes: WNL Nose: Yes: Other (R ant green crusting; left synechiae (admits to hx cocaine abuse, sober now)) Nasal Passage: Yes: Other Oral/Pharynx: Yes: Other (tonsils 1+. TF/BOT soft. oropharynx clear. FOM soft, flat.) Outer Ear: Yes: WNL Ear Canal: Yes: Other (+cerumen) Neck: Yes: Supple Respiratory: Yes: WNL Neurological: Yes: Other (CN3-7,11,12 intact, symmetrical) Imaging - Results Other: Other (Flexible Fiberoptic Laryngoscopy: Expl r/b/l/a to pt. Consent given. Passed endoscope through left nasal cavity to supraglottis, withdrawn. Findings: 1. Normal nasopharynx, oropharynxx. 2. Normal TVC mobility. 3. No masses/lesions grossly seen 4. Moderate thick postcricoid edema, symmetrical. Narrow view of pyriforms. 5. No overt foreign body seen.) Problem List - Problems (1) Pharyngitis Assessment/Plan: Initial consult was to rule out retained FB in hypopharynx, though the patient says it passed yesterday. None seen on exam. Significant laryngopharyngeal edema which obscures examination though it is unlikely there is any foreign body. This edema could be reactive from a previously-lodged pill, laryngopharyngeal reflux disease, and/or repeated vomiting with significant acid exposure. - As her symptoms are resolving, would recommend observation - Ongoing GI followup and treatment for her GERD. - If she has any persistent throat symptoms she should follow up with me in my office in the next 1-2 weeks. She is aware of my office location. Code(s): J02.9 - ACUTE PHARYNGITIS, UNSPECIFIED (2) Snoring Assessment/Plan: Patient endorses snoring. Given her obesity and 'prominent oropharyngeal tissue ' she is higher risk for YARELIS - Please set the patient up for a sleep study to rule out YARELIS. Code(s): R06.83 - SNORING
[2016-10-13 09:22] LABS: BASOPHIL 0.2 % (0-2.0); EOSINOPHIL 0.3 % (0-4.5); MCH 36.3 pg (25.7-33.7); MCHC 34.7 g/dl (32.0-36.0); MEAN CELL VOLUME 104.5 fl (80-96); NEUTROPHILS 65.5 % (42.8-82.8); PLATELET COUNT 121 K/MM3 (134-434); RDW 13.7 % (11.6-15.6); WHITE BLOOD COUNT 6.5 K/mm3 (4.0-10.0)
[2016-10-13] MEDS: MINERAL OIL/PET HY-PHL TOPICAL OINTMENT 454 GM JAR TP SCH (10:06)
[2016-10-13 10:18] LABS: ALBUMIN 3.2 g/dl (3.4-5.0); ALK PHOS 90 U/L (45-117); ANION GAP 9 (8-16); BILIRUBIN,TOTAL 2.5 mg/dL (0.2-1.0); CO2 28 mmol/L (21-32); CREATININE 0.7 mg/dL (0.55-1.02); GLUCOSE,RANDOM 121 mg/dL (74-106); MAGNESIUM 1.8 mg/dL (1.8-2.4); PHOSPHOROUS 2.6 mg/dL (2.5-4.9); SGOT/AST 78 U/L (15-37); SGPT/ALT 117 U/L (12-78); TOT PROT 6.1 g/dl (6.4-8.2)
--- NOTE | 2016-10-13 11:43 | DS ---
Physical Examination Vital Signs: Vital Signs Temperature 37.1 C 10/13/16 09:02 Pulse Rate 83 10/13/16 09:02 Respiratory Rate 18 10/13/16 09:02 Blood Pressure 115/70 10/13/16 09:02 O2 Sat by Pulse Oximetry (%) 98 10/13/16 11:00 Labs: CBC, BMP 10/13/16 08:50 10/13/16 09:45 Discharge Summary Reason For Visit: ALCOHOL DEPENDENCE HYPOKALEMIA Current Active Problems Alcohol dependence (Acute) Alcohol-induced anxiety disorder (Acute) Chronic alcoholic pancreatitis (Acute) DVT prophylaxis (Acute) Hyperlipemia (Acute) Hypokalemia (Acute) Laryngeal edema (Acute) Metabolic acidosis, increased anion gap (Acute) Pharyngitis (Acute) Snoring (Acute) Transaminitis (Acute) Condition: Stable - Instructions Diet, Activity, Other Instructions: resume previous diet and activity Referrals: Hansel Mock MD [Primary Care Provider] - Jamal Langley MD [Staff Physician] - Disposition: HOME - Home Medications Comprehensive Discharge Medication List: Ambulatory Orders Lipase/Protease/Amylase [Abdiaziz Bingham 36,000 Units Capsule] 1 each PO TID 07/15/16 Quetiapine Fumarate [Seroquel -] 25 mg PO HS 07/15/16 Tramadol HCl [Ultram -] 50 mg PO Q6H 07/15/16
== END 2016-10-13 13:00 | disposition home or self-care (01) ==
LOC: JER 15:17 → JERBED 19:06 → J5S 10-12 15:20
PROVIDERS: ADMIT Internal Medicine; ATTEND Internal Medicine
PROC: 3E033GC Introduction of Other Therapeutic Substance into Peripheral Vein, Percutaneous Approach (ICD-10-PCS; principal; 2016-10-11)
PROC: 3E0337Z Introduction of Electrolytic and Water Balance Substance into Peripheral Vein, Percutaneous Approach (ICD-10-PCS; 2016-10-11)
DX: F10.20 Alcohol dependence, uncomplicated (principal); E87.6 Hypokalemia; J38.4 Edema of larynx; F10.280 Alcohol dependence with alcohol-induced anxiety disorder; K86.0 Alcohol-induced chronic pancreatitis; J02.9 Acute pharyngitis, unspecified; R06.83 Snoring; R74.0 Nonspecific elevation of levels of transaminase and lactic acid dehydrogenase [LDH]; E78.5 Hyperlipidemia, unspecified; F41.9 Anxiety disorder, unspecified; I10 Essential (primary) hypertension; K21.9 Gastro-esophageal reflux disease without esophagitis; E87.2 Acidosis
CPT/HCPCS: 36415; 70360-TC; 71010-TC; 76700-TC; 80048; 80053; 80074; 80076; 83735; 84100; 84484; 84703; 85025; 87045; 87046; 93005; 93010; 99285-25; G0378

== ENCOUNTER 2016-12-03 18:33 | Observation (INO) | payer OTHER ==
[2016-12-03] MEDS ORDERED: ONDANSETRON 4 MG/2 ML VIAL IVPUSH ONE (19:20)
[2016-12-03] MEDS ORDERED: SODIUM CHLORIDE 0.9% 1000 ML INFUS.BAG IV ONE (19:20)
[2016-12-03 19:36] LABS: BASOPHIL 0.6 % (0-2.0); EOSINOPHIL 0.1 % (0-4.5); MCH 33.1 pg (25.7-33.7); MCHC 33.3 g/dl (32.0-36.0); MEAN CELL VOLUME 99.5 fl (80-96); MEAN PLT VOLUME 9.3 fl (7.5-11.1); NEUTROPHILS 87.2 % (42.8-82.8); PLATELET COUNT 223 K/MM3 (134-434); WHITE BLOOD COUNT 18.7 K/mm3 (4.0-10.0)
--- NOTE | 2016-12-03 19:36 | PDOC ---
Attending Attestation - Resident Resident Name: Max Carr - ED Attending Attestation I have performed the following: I have examined & evaluated the patient, The case was reviewed & discussed with the resident, I agree w/resident's findings & plan, Exceptions are as noted - HPI HPI: 12/03/16 19:32 41yo F hx GERD, pancreatitis prev etoh abuse (last drink 4 months ago) p/w "100 " episodes of NBNB emesis since this morning. Has not kept anything down. Last BM yesterday was normal. No abd pain. Reports this does not feel like her pancreatitis as she usually has epigastric pain when she has that. While initially denying recent drinking, pt reports that she had a drink on Thursday. Denies other symptoms of fevers, chills, diarrhea, cp, sob, LE edema, dysuria, rashes. - Physicial Exam PE: 12/03/16 22:12 GENERAL: Awake, alert, and fully oriented, in no acute distress HEAD: No signs of trauma EYES: PERRLA, EOMI, sclera anicteric, conjunctiva clear ENT: Auricles normal inspection, hearing grossly normal, nares patent, oropharynx clear without exudates. dry MM NECK: Normal ROM, supple, no lymphadenopathy, JVD, or masses LUNGS: Breath sounds equal, clear to auscultation bilaterally. No wheezes, and no crackles HEART: tachy 108, normal S1 and S2, no murmurs, rubs or gallops ABDOMEN: Soft, nontender, normoactive bowel sounds. No guarding, no rebound. No masses EXTREMITIES: Normal range of motion, no edema. No clubbing or cyanosis. No cords, erythema, or tenderness NEUROLOGICAL: +b/l mild tremors and mild tongue fasiculations. normal speech, cranial nerves intact, negative pronator drift, 5/5 strength in all 4 extremities, normal sensation to light touch in all 4 extremities, normal cerebellar exam, normal gait, normal reflexes and tone SKIN: Warm, Dry, normal turgor, no rashes or lesions noted. - Medical Decision Making 12/03/16 22:27 41-year-old female with a history of alcohol abuse, pancreatitis presents with innumerable episodes of vomiting since this morning. The patient has failed PO trial multiple times in the emergency department and is even unable to tolerate potassium repletion by mouth. Exam is remarkable for mild upper extremity tremors and tongue fasciculations. Abdominal exam is benign. Concern for alcohol withdrawal given fasciculations although patient reports her last drink was Thursday and that she has not been drinking regularly prior to that. Nausea and vomiting may be secondary to alcohol withdrawal but could also be secondary to gastroenteritis versus pancreatitis versus colitis. Plan: -labs -IVF -Mg/K repletion -benzo PRN -admit 12/04/16 21:44 Case discussed in detail with admitting physician including history, physical exam and ancillary studies. Admitting physician has assumed care for the patient, will follow all pending diagnostics and will complete the evaluation and treatment.
[2016-12-03] MEDS ORDERED: ONDANSETRON 4 MG/2 ML VIAL ONE (20:01)
[2016-12-03] MEDS ORDERED: MAG HYDROX/ALH/SMC/DPHA/LIDO 240 ML MOUTHWASH MM ONE (20:19)
[2016-12-03 20:26] LABS: ALK PHOS 105 U/L (45-117); ANION GAP 24 (8-16); BILIRUBIN,TOTAL 1.9 mg/dL (0.2-1.0); CALCIUM 9.1 mg/dL (8.5-10.1); CO2 19 mmol/L (21-32); CREATININE 0.8 mg/dL (0.55-1.02); GLUCOSE,RANDOM 150 mg/dL (74-106); SGOT/AST 15 U/L (15-37); SGPT/ALT 22 U/L (12-78); TOT PROT 7.8 g/dl (6.4-8.2)
--- NOTE | 2016-12-03 20:34 | PDOC ---
History of Present Illness - General Chief Complaint: Nausea/Vomiting Stated Complaint: NAUSEA/VOMITING Time Seen by Provider: 12/03/16 19:03 History Source: Patient Exam Limitations: No Limitations - History of Present Illness Initial Comments: 12/03/16 20:26 The patient is a 41F with a PMH of pancreatitis and GERD who presents to the ED with complaints of intractable nausea and vomiting. The patient states that she has vomited 100 times since this morning, all of it nonblood and nonbilious. The patient is a former alcoholic but has not had a drink in 4 months. She states that she does not have pain anywhere, but feels like she cannot stop vomiting. She denies any pain and states that this does not feel like her previous bouts of pancreatitis. The patient denies fever, chills and shortness of breath. Past History - Past Medical History Allergies/Adverse Reactions: Allergies Allergy/AdvReac Type Severity Reaction Status Date / Time No Known Allergies Allergy Verified 10/11/16 19:48 Home Medications: Ambulatory Orders Lipase/Protease/Amylase [Abdiaziz Dr 36,000 Units Capsule] 1 each PO TID 07/15/16 Quetiapine Fumarate [Seroquel -] 25 mg PO HS 07/15/16 Tramadol HCl [Ultram -] 50 mg PO Q6H 07/15/16 Asthma: No Cardiac Disorders: No COPD: No Diabetes: No GI Disorders: Yes (PANCREATITIS) Disorders: No HTN: No Hypercholesterolemia: Yes Kidney Stones: No Seizures: No - Surgical History Abdominal Surgery: No Appendectomy: Yes (1984) Cardiac Surgery: No Cholecystectomy: No Lung Surgery: No Neurologic Surgery: No Orthopedic Surgery: No - Immunization History Immunization Up to Date: Yes - Suicide/Smoking/Psychosocial Hx Smoking Status: No Smoking History: Former smoker Have you smoked in the past 12 months: No Number of Cigarettes Smoked Daily: 0 Information on smoking cessation initiated: No Hx Alcohol Use: No Drug/Substance Use Hx: No Substance Use Type: None Hx Substance Use Treatment: No Review of Systems - Review of Systems Able to Perform ROS?: Yes Is the patient limited Japanese proficient: No Constitutional: Yes: Chills, Fever HEENTM: Yes: Throat Pain (2/2 vomiting). No: Eye Pain, Ear Pain Respiratory: Yes: Shortness of Breath ("feels like anxiety attack"). No: Orthopnea, Wheezing Cardiac (ROS): No: Chest Pain, Chest Tightness ABD/GI: Yes: Nausea, Vomiting. No: Constipated, Diarrhea : No: Burning, Dysuria, Discharge Musculoskeletal: No: Back Pain, Muscle Pain Integumentary: No: Lesions, Rash Neurological: No: Headache, Numbness, Tingling, Weakness *Physical Exam - Vital Signs Last Vital Signs Temp Pulse Resp BP Pulse Ox 97.9 F 109 H 24 175/99 97 12/03/16 18:33 12/03/16 18:33 12/03/16 18:33 12/03/16 18:33 12/03/16 18:33 - Physical Exam General Appearance: Yes: Nourished, Appropriately Dressed HEENT: positive: Normal Voice, Hearing Grossly Normal Respiratory/Chest: positive: Lungs Clear, Normal Breath Sounds. negative: Chest Tender, Accessory Muscle Use, Labored Respiration Cardiovascular: positive: Regular Rhythm, Regular Rate, S1, S2. negative: Diastolic Murmur, Systolic Murmur Gastrointestinal/Abdominal: positive: Flat. negative: Tender, Distended, Guarding, Rebound, Tenderness Musculoskeletal: negative: CVA Tenderness (R), CVA Tenderness (L) Extremity: positive: Normal Inspection. negative: Swelling, Calf Tenderness Integumentary: positive: Dry, Warm. negative: Clammy, Diaphoresis Neurologic: positive: Fully Oriented, Alert, Normal Mood/Affect, Motor Strength 5/5 Heart Score/ECG Review - ECG Impressions Comment:: 12/03/16 20:45 NSR. U-wave present in v4-v6. ED Treatment Course - LABORATORY CBC & Chemistry Diagram: 12/03/16 19:27 12/03/16 19:27 - ADDITIONAL ORDERS Additional order review: Laboratory Results 12/03/16 12/03/16 19:27 19:20 Serum , Qual Negative Alcohol, Quantitative < 5.0 12/03/16 19:27 RBC 4.27 MCV 99.5 H MCHC 33.3 RDW 15.0 MPV 9.3 Neutrophils % 87.2 H D Lymphocytes % 7.7 L D Monocytes % 4.4 Eosinophils % 0.1 Basophils % 0.6 - RADIOLOGY Radiology Studies Ordered: Category Date Time Status CHEST PA & LAT [RAD] Stat Radiology 12/03/16 19:20 Ordered - Medications Given in the ED: ED Medications Discontinued Medications Generic Name Dose Route Start Last Admin Trade Name Randi PRN Reason Stop Dose Admin Ondansetron HCl 4 mg 12/03/16 19:20 12/03/16 20:07 Zofran Injection IVPUSH 12/03/16 19:21 4 mg ONCE ONE Administration Sodium Chloride 1,000 ml 12/03/16 19:20 12/03/16 19:36 Normal Saline - IV 12/03/16 19:21 1,000 ml ONCE ONE Administration Medical Decision Making - Medical Decision Making 12/03/16 20:46 The patient is a 41F with a PMH of pancreatitis and GERD who presents to the ED with intractable nausea and vomiting. The patient states that her last drink was 4 months ago. I will order the following and reassess the patient when labs and imaging return: - CBC - CMP - Lipase - CXR - EKG Patient was reevaluated and was found to have decreased sensation of SOB. O2 sat 99% on RA. K = 2.9. Will order mag and replenish both as necessary. 12/03/16 20:49 WBC = 18.7. Likely secondary to vomiting. 12/03/16 21:53 The patient's nausea and vomiting have only slightly subsided. I have spoken with her PCP, Dr. Mock, who agrees to observation with consultation to Dr. Hart for GI. 12/03/16 21:55 The patient has been signed out to Dr. Breen. *DC/Admit/Observation/Transfer Diagnosis at time of Disposition: Hypomagnesemia, Hypokalemia Intractable nausea and vomiting Qualifiers: Vomiting type: unspecified Qualified Code(s): R11.2 - Nausea with vomiting, unspecified - Discharge Dispostion Condition at time of disposition: Stable Admit: Yes - Referrals Referrals: Hansel Mock MD [Primary Care Provider] -
[2016-12-03 20:52] LABS: MAGNESIUM 1.3 mg/dL (1.8-2.4)
[2016-12-03] MEDS ORDERED: MAGNESIUM SULF 50% (8.12 MEQ/2 ML-1 GM VIAL) IVPB ONE ×2 (21:07)
[2016-12-03] MEDS ORDERED: MAGNESIUM SULF 50% (8.12 MEQ/2 ML-1 GM VIAL) ONE ×2 (21:09→23:16)
[2016-12-03] MEDS ORDERED: POTASSIUM CHLORIDE TABS 20 MEQ TABLET.ER (FP) PO ONE ×2 (21:13→21:17)
[2016-12-03] MEDS ORDERED: SODIUM CHLORIDE 0.9% 500 ML INFUS.BAG IV ONE (22:00)
[2016-12-03] MEDS ORDERED: ONDANSETRON 4 MG/2 ML VIAL IVPB PRN (22:04)
[2016-12-03] MEDS ORDERED: LORazepam 2 MG/ML SDV VIAL ONE (22:12)
[2016-12-03] MEDS ORDERED: DEXTROSE 5%-NORMAL SALINE 1,000 ML IV SCH (22:15)
[2016-12-03] MEDS: D5-NS + 20 MEQ KCL - 1,000 ML IV SCH (22:34)
[2016-12-04 06:08] LABS: BASOPHIL 0.4 % (0-2.0); EOSINOPHIL 0.3 % (0-4.5); MCH 33.6 pg (25.7-33.7); MCHC 34.2 g/dl (32.0-36.0); MEAN CELL VOLUME 98.3 fl (80-96); MEAN PLT VOLUME 9.5 fl (7.5-11.1); NEUTROPHILS 77.9 % (42.8-82.8); PLATELET COUNT 195 K/MM3 (134-434); RDW 14.9 % (11.6-15.6); WHITE BLOOD COUNT 13.8 K/mm3 (4.0-10.0)
[2016-12-04 06:34] LABS: ALBUMIN 3.4 g/dl (3.4-5.0); ANION GAP 7 (8-16); BILIRUBIN,TOTAL 1.5 mg/dL (0.2-1.0); CALCIUM 7.9 mg/dL (8.5-10.1); CO2 29 mmol/L (21-32); MAGNESIUM 2.3 mg/dL (1.8-2.4); SGOT/AST 11 U/L (15-37); SGPT/ALT 19 U/L (12-78); TOT PROT 6.7 g/dl (6.4-8.2)
[2016-12-04 06:35] LABS: ALK PHOS 95 U/L (45-117); CREATININE 0.6 mg/dL (0.55-1.02); GLUCOSE,RANDOM 111 mg/dL (74-106)
[2016-12-04] MEDS ORDERED: PANTOPRAZOLE SODIUM 100 ML IVPB ONE (10:23)
[2016-12-04] MEDS: PANTOPRAZOLE SODIUM 100 ML IVPB SCH ×2 (10:34→10:36)
[2016-12-04] MEDS: D5-NS + 20 MEQ KCL - 1,000 ML IV SCH (10:59)
--- NOTE | 2016-12-04 11:08 | HP ---
Admitting History and Physical - Primary Care Physician PCP: Hansel Mock - Admission Chief Complaint: I was vomiting History of Present Illness: Ms Sharpe is a very pleasant 41 year old female who comes in with about 12 hours of intractable vomiting. She has a history of alcohol abuse but states that she has stopped drinking since her last admission for the most part, however she had 4 glasses of wine on Thursday and the last drink before that was a week ago Thursday. She says she felt fine on Thursday and was without complaint. However yesterday she was at work and she suddenly had nausea with vomiting. She says at first it looked like undigested food. She tried to drink water but it came up. She did not have hematemesis, coffee ground emesis, or bilious emesis. She came in for further evaluation. She says that has now resolved and she is having some diarrhea. She also complains of anxiety. She denies fevers, chills, lightheadedness, dizziness, passing out, chest pain, shortness of breath , abdominal pain, pain or difficulty urinating, or swelling. History Source: Patient Limitations to Obtaining History: No Limitations - Past Medical History Cardiovascular: Yes: HTN Gastrointestinal: Yes: GERD, Pancreatitis ...LMP: 02/22/16 Psych: Yes: Addictions (alcohol abuse) - Past Surgical History Past Surgical History: Yes: Appendectomy, (x2) - Smoking History Smoking history: Former smoker Have you smoked in the past 12 months: No Aproximately how many cigarettes per day: 0 - Alcohol/Substance Use Hx Alcohol Use: Yes (as per HPI) - Social History Usual Living Arrangement: Yes: Alone ADL: Independent History of Recent Travel: No Home Medications - Allergies Allergies/Adverse Reactions: Allergies Allergy/AdvReac Type Severity Reaction Status Date / Time No Known Allergies Allergy Verified 10/11/16 19:48 - Home Medications Home Medications: Ambulatory Orders Lipase/Protease/Amylase [Abdiaziz Bingham 36,000 Units Capsule] 1 each PO TID 07/15/16 Quetiapine Fumarate [Seroquel -] 25 mg PO HS 07/15/16 Tramadol HCl [Ultram -] 50 mg PO Q6H PRN 07/15/16 Family Disease History - Family Disease History Family Disease History: Diabetes: Mother, Heart Disease: Father Review of Systems Findings/Remarks: Full review of systems obtained, as per HPI and otherwise negative Physical Examination Vital Signs: Vital Signs Temperature 36.9 C 12/04/16 08:50 Pulse Rate 93 H 12/04/16 08:50 Respiratory Rate 18 12/04/16 08:50 Blood Pressure 145/78 12/04/16 08:50 O2 Sat by Pulse Oximetry (%) 97 12/04/16 06:28 Constitutional: Yes: No Distress, Calm, Obese Eyes: Yes: Conjunctiva Clear, EOM Intact, PERRL HENT: Yes: Atraumatic, Normocephalic Cardiovascular: Yes: Regular Rate and Rhythm. No: Gallop, Murmur, Rub Respiratory: Yes: Regular, CTA Bilaterally. No: Rales, Rhonchi, Wheezes Gastrointestinal: Yes: Normal Bowel Sounds, Soft. No: Distention, Tenderness Extremities: Yes: WNL Edema: No Labs: CBC, BMP 12/04/16 05:15 12/04/16 05:15 Imaging - Results Chest X-ray: Report Reviewed, Image Reviewed Problem List - Problems (1) Gastroenteritis Assessment/Plan: -suspect this is gastroenteritis as opposed to alcohol withdrawal -GI consulted and will see -will place on clear liquid diet and see how tolerates -continue IVF Code(s): K52.9 - NONINFECTIVE GASTROENTERITIS AND COLITIS, UNSPECIFIED (2) Chronic alcoholic pancreatitis Assessment/Plan: -GI to see Code(s): K86.0 - ALCOHOL-INDUCED CHRONIC PANCREATITIS (3) Hyperbilirubinemia Assessment/Plan: -chronic -outpatient follow up Code(s): E80.6 - OTHER DISORDERS OF BILIRUBIN METABOLISM
[2016-12-04] MEDS ORDERED: traMADol HCL 50 MG TABLET PO PRN (11:40)
[2016-12-04] MEDS ORDERED: ACETAMINOPHEN 325 MG TABLET (FP) PO PRN (11:41)
--- NOTE | 2016-12-04 11:55 | EKG ---
Test Reason : Blood Pressure : / mmHG Vent. Rate : 106 BPM Atrial Rate : 106 BPM P-R Int : 152 ms QRS Dur : 074 ms QT Int : 358 ms P-R-T Axes : 038 048 045 degrees QTc Int : 475 ms SINUS TACHYCARDIA POSSIBLE LEFT ATRIAL ENLARGEMENT LOW VOLTAGE QRS BORDERLINE ECG WHEN COMPARED WITH ECG OF 11-OCT-2016 17:00, NO SIGNIFICANT CHANGE WAS FOUND Confirmed by PATTI MORIN MD ([id number]) on 12/04/2016 11:55:08 AM Referred By: Confirmed By:PATTI MORIN MD
--- NOTE | 2016-12-04 12:04 | CON.GI ---
Consult Consult Specialty:: GI Referred by:: Dr. Cathy Tolliver Reason for Consultation:: vomiting - History of Present Illness History of Present Illness: Acute onset of vomiting x 1 day. No diarrhea, fever, chills, abdominal pain. No hematemesis, melena, hematochezia. No jaundice. Had a glass of white wine on Thursday night out. Denies ill contacts, travel. Developed watery, brown diarrhea this am however states feeling better. - History Source History Provided By: Patient Limitations to Obtaining History: No Limitations - Past Medical History Cardio/Vascular: Yes: HTN Gastrointestinal: Yes: GERD, Pancreatitis Hepatobiliary: Yes: Other (hepatic lesion on MRI, negative CT and US, fatty liver) ...LMP: 02/22/16 Psych: Yes: Addictions (alcohol abuse) - Past Surgical History Past Surgical History: Yes: Appendectomy, (x2) - Alcohol/Substance Use Hx Alcohol Use: Yes (last thursday) Number of Drinks Daily: 4 - Smoking History Smoking history: Former smoker Have you smoked in the past 12 months: No Aproximately how many cigarettes per day: 0 - Social History Usual Living Arrangement: With Parent ADL: Independent History of Recent Travel: No Home Medications - Allergies Allergies/Adverse Reactions: Allergies Allergy/AdvReac Type Severity Reaction Status Date / Time No Known Allergies Allergy Verified 10/11/16 19:48 - Home Medications Home Medications: Ambulatory Orders Lipase/Protease/Amylase [Abdiaziz Bingham 36,000 Units Capsule] 1 each PO TID 07/15/16 Quetiapine Fumarate [Seroquel -] 25 mg PO HS 07/15/16 Tramadol HCl [Ultram -] 50 mg PO Q6H PRN 07/15/16 Family Disease History - Family Disease History Family History: Unremarkable Family Disease History: Diabetes: Mother, Heart Disease: Father Review of Systems Findings/Remarks: See H&P - Review of Systems Constitutional: denies: Chills, Fever, Loss of Appetite, Unintentional Wgt. Loss Cardiovascular: denies: Chest Pain Respiratory: denies: Cough Gastrointestinal: reports: Diarrhea, Nausea, Vomiting. denies: Abdominal Pain, Bloating, Constipation, Dysphagia, Indigestion, Melena, Rectal Bleeding, Vomiting Blood Physical Exam-GI Vital Signs: Vital Signs Temperature 98.5 F 12/04/16 08:50 Pulse Rate 93 H 12/04/16 08:50 Respiratory Rate 18 12/04/16 08:50 Blood Pressure 145/78 12/04/16 08:50 O2 Sat by Pulse Oximetry (%) 97 12/04/16 10:30 Constitutional: Yes: No Distress, Calm Eyes: Yes: Conjunctiva Clear HENT: Yes: Atraumatic Neck: Yes: Supple Cardiovascular: Yes: Regular Rate and Rhythm Respiratory: Yes: Regular ...Auscultate: Yes: Normoactive Bowel Sounds ...Palpate: Yes: Soft. No: Firm/Rigid, Guarding, Hepatomegaly, Mass, Pulsatile Mass, Splenomegaly, Tenderness, Tenderness, Epigastium, Tenderness, Rebound ...Percussion: No: Fluid Wave Edema: No Integumentary: No: Jaundice Neurological: Yes: Alert, Oriented Psychiatric: No: Agitated Labs: CBC, BMP 12/04/16 05:15 12/04/16 05:15 Laboratory Results - last 24 hr 12/03/16 12/03/16 12/03/16 19:20 19:27 19:27 WBC 18.7 H D RBC 4.27 Hgb 14.2 Hct 42.5 MCV 99.5 H MCH 33.1 MCHC 33.3 RDW 15.0 Plt Count 223 D MPV 9.3 Neutrophils % 87.2 H D Lymphocytes % 7.7 L D Monocytes % 4.4 Eosinophils % 0.1 Basophils % 0.6 Sodium 139 Potassium 2.9 L* Chloride 96 L Carbon Dioxide 19 L D Anion Gap 24 H BUN 17 D Creatinine 0.8 Creat Clearance w eGFR > 60 Random Glucose 150 H D Calcium 9.1 Magnesium 1.3 L D Total Bilirubin 1.9 H D AST 15 D ALT 22 D Alkaline Phosphatase 105 Total Protein 7.8 D Albumin 4.0 D Lipase 99 Serum , Qual Negative Alcohol, Quantitative 12/03/16 12/04/16 12/04/16 19:27 05:15 05:15 WBC 13.8 H RBC 3.84 Hgb 12.9 Hct 37.8 MCV 98.3 H MCH 33.6 MCHC 34.2 RDW 14.9 Plt Count 195 MPV 9.5 Neutrophils % 77.9 Lymphocytes % 16.4 D Monocytes % 5.0 Eosinophils % 0.3 D Basophils % 0.4 Sodium 138 Potassium 3.9 D Chloride 102 Carbon Dioxide 29 D Anion Gap 7 L BUN 10 D Creatinine 0.6 D Creat Clearance w eGFR > 60 Random Glucose 111 H D Calcium 7.9 L Magnesium 2.3 D Total Bilirubin 1.5 H D AST 11 L D ALT 19 Alkaline Phosphatase 95 Total Protein 6.7 Albumin 3.4 Lipase Serum , Qual Alcohol, Quantitative < 5.0 Current Medications Generic Name Dose Route Start Last Admin Trade Name Freq PRN Reason Stop Dose Admin Acetaminophen 650 mg 12/04/16 11:41 Tylenol - PO Q6H PRN FEVER OR PAIN Pantoprazole Sodium 100 mls @ 200 mls/hr 12/03/16 10:00 12/04/16 10:36 Protonix 40mg Ivpb (Pre-Docked) IVPB Not Given DAILY DERICK Dextrose/Sodium Chloride 1,000 mls @ 83 mls/hr 12/03/16 22:15 12/04/16 10:59 Dextrose 5%-Normal Saline+20 Meq Kcl - IV 83 mls/hr ASDIR DERICK Administration Lorazepam 1 mg 12/04/16 11:41 Ativan - PO TID PRN ANXIETY Ondansetron HCl 4 mg 12/03/16 22:04 Zofran Injection IVPB Q6H PRN NAUSEA Pancrelipase 1 cap 12/04/16 12:00 Abdiaziz Bingham 36,000 Units Capsule PO TIDCM DERICK Quetiapine Fumarate 25 mg 12/04/16 22:00 Seroquel - PO HS DEIRCK Tramadol HCl 50 mg 12/04/16 11:40 Ultram - PO Q6H PRN PAIN Home Medications Medication Instructions Recorded Lipase/Protease/Amylase [Abdiaziz Bingham 1 each PO TID 07/15/16 36,000 Units Capsule] Quetiapine Fumarate [Seroquel -] 25 mg PO HS 07/15/16 Tramadol HCl [Ultram -] 50 mg PO Q6H PRN 07/15/16 Initial Vital Signs Temp Pulse Resp BP Pulse Ox 97.9 F 109 H 24 175/99 97 12/03/16 18:33 12/03/16 18:33 12/03/16 18:33 12/03/16 18:33 12/03/16 18:33 Vital Signs Temp 98.5 F 12/04/16 08:50 Pulse 93 H 12/04/16 08:50 Resp 18 12/04/16 08:50 BP 145/78 12/04/16 08:50 Pulse Ox 97 12/04/16 10:30 Intake & Output 12/03/16 12/04/16 12/04/16 23:59 11:59 23:59 Weight 168 lb Other: Voiding Method Toilet Height 5 ft 6 in Body Mass Index (BMI) 27.1 Weight Measurement Method Est/Stated by Patient Imaging - Results Cat Scan: Report Reviewed Ultrasound: Report Reviewed MRI: Report Reviewed Problem List - Problems (1) Abnormal abdominal MRI Assessment/Plan: The patient is scheduled to see her operations planner for blood work and MRI. Suspicious lesion on MRCP in the past, negative for lesions subsequent CT and US Code(s): R93.5 - ABN FINDINGS ON DX IMAGING OF ABD REGIONS, INC RETROPERITON (2) Chronic alcoholic pancreatitis Assessment/Plan: Normal lipase however still possible and can present with nausea and vomiting. Recently used alcohol. Keep NPO today Antiemetic po PRN PPI po IV/PO hydration if tolerated. If tolerating po hydration, start liquid diet and advance as tolerated. correct electrolytes. Code(s): K86.0 - ALCOHOL-INDUCED CHRONIC PANCREATITIS (3) Hyperbilirubinemia Assessment/Plan: isolated mild hyperbilirubenimia follow direct bili (?gilberts vs chronic liver disease) Code(s): E80.6 - OTHER DISORDERS OF BILIRUBIN METABOLISM (4) Macrocytic anemia Assessment/Plan: Macrocytic anemia either ETOH, B12/Folate, or liver disease check B12/Folate Code(s): D53.9 - NUTRITIONAL ANEMIA, UNSPECIFIED (5) Hypokalemia Code(s): E87.6 - HYPOKALEMIA (6) Vomiting and diarrhea Assessment/Plan: Acute onset. if viral etiology, supportive care as above Code(s): R11.10 - VOMITING, UNSPECIFIED R19.7 - DIARRHEA, UNSPECIFIED
[2016-12-04] MEDS: LORazepam 1 MG TABLET PO PRN ×2 (12:37→21:38)
[2016-12-04 12:57] VITALS: BMI 34.4
[2016-12-04] MEDS: LIPASE/PROTEASE/AMYLASE 36,000 UNIT CAPSULE PO SCH ×2 (15:09→17:46)
[2016-12-04] MEDS ORDERED: QUEtiapine FUMARATE 25 MG TABLET (FP) PO SCH (22:00)
[2016-12-05] MEDS: D5-NS + 20 MEQ KCL - 1,000 ML IV SCH
[2016-12-05 07:45] LABS: BASOPHIL 0.5 % (0-2.0); EOSINOPHIL 1.7 % (0-4.5); MCH 33.6 pg (25.7-33.7); MCHC 33.8 g/dl (32.0-36.0); MEAN CELL VOLUME 99.2 fl (80-96); MEAN PLT VOLUME 9.3 fl (7.5-11.1); NEUTROPHILS 63.3 % (42.8-82.8); PLATELET COUNT 135 K/MM3 (134-434); WHITE BLOOD COUNT 6.8 K/mm3 (4.0-10.0)
--- NOTE | 2016-12-05 08:09 | PN ---
Progress Note, Physician History of Present Illness: No events, reports no nausea, vomiting, diarrhea. Slept all night - Current Medication List Current Medications: Active Medications Acetaminophen (Tylenol -) 650 mg PO Q6H PRN PRN Reason: FEVER OR PAIN Pantoprazole Sodium (Protonix 40mg Ivpb (Pre-Docked)) 100 mls @ 200 mls/hr IVPB DAILY [facility] Last Admin: 12/04/16 10:36 Dose: Not Given Dextrose/Sodium Chloride (Dextrose 5%-Normal Saline+20 Meq Kcl -) 1,000 mls @ 83 mls/hr IV ASDIR [facility] Last Admin: 12/05/16 00:00 Dose: 83 mls/hr Lorazepam (Ativan -) 1 mg PO TID PRN PRN Reason: ANXIETY Last Admin: 12/04/16 21:38 Dose: 1 mg Ondansetron HCl (Zofran Injection) 4 mg IVPB Q6H PRN PRN Reason: NAUSEA Pancrelipase (Creon Dr 36,000 Units Capsule) 1 cap PO TIDCM [facility] Last Admin: 12/04/16 17:46 Dose: 1 cap Quetiapine Fumarate (Seroquel -) 25 mg PO HS [facility] Last Admin: 12/04/16 21:38 Dose: 25 mg Tramadol HCl (Ultram -) 50 mg PO Q6H PRN PRN Reason: PAIN - Objective Vital Signs: Vital Signs Temperature 98 F 12/05/16 05:15 Pulse Rate 88 12/05/16 05:15 Respiratory Rate 20 12/05/16 05:15 Blood Pressure 134/71 12/05/16 05:15 O2 Sat by Pulse Oximetry (%) 98 12/05/16 03:00 Constitutional: Yes: No Distress, Calm Eyes: Yes: Conjunctiva Clear HENT: Yes: Atraumatic Neck: Yes: Supple Cardiovascular: Yes: Regular Rate and Rhythm Respiratory: Yes: Regular Gastrointestinal: Yes: Normal Bowel Sounds, Soft. No: Ascites, Distention, Palpable Mass, Pulsatile Mass, Tenderness, Tenderness, Epigastrium, Tenderness, Rebound, Vomiting Integumentary: No: Jaundice Neurological: Yes: Alert, Oriented Labs: CBC, BMP 12/05/16 06:00 Laboratory Results - last 24 hr 12/04/16 12/04/16 12/05/16 05:15 05:15 06:00 WBC 6.8 D RBC 3.54 L Hgb 11.9 Hct 35.2 MCV 99.2 H MCH 33.6 MCHC 33.8 RDW 15.0 Plt Count 135 D MPV 9.3 Neutrophils % 63.3 Lymphocytes % 29.9 D Monocytes % 4.6 Eosinophils % 1.7 D Basophils % 0.5 Sodium 138 Potassium 3.9 D Chloride 102 Carbon Dioxide 29 D Anion Gap 7 L BUN 10 D Creatinine 0.6 D Creat Clearance w eGFR > 60 Random Glucose 111 H D Calcium 7.9 L Magnesium 2.3 D Total Bilirubin 1.5 H D AST 11 L D ALT 19 Alkaline Phosphatase 95 Total Protein 6.7 Albumin 3.4 Vitamin B12 435 Cancelled Serum Folate 7 Cancelled Vital Signs - 24 hr 12/04/16 12/04/16 12/04/16 08:50 10:30 12:47 Temperature 98.5 F 98.1 F Pulse Rate 93 H 97 H Respiratory 18 20 Rate Blood Pressure 145/78 140/90 O2 Sat by Pulse 97 98 Oximetry (%) 12/04/16 12/04/16 12/05/16 18:54 19:18 02:00 Temperature 98.3 F 98.4 F Pulse Rate 95 H 82 Respiratory 18 18 18 Rate Blood Pressure 142/88 140/80 O2 Sat by Pulse 98 Oximetry (%) 12/05/16 12/05/16 03:00 05:15 Temperature 98 F Pulse Rate 88 Respiratory 18 20 Rate Blood Pressure 134/71 O2 Sat by Pulse 98 Oximetry (%) Vital Signs Temp 98 F 12/05/16 05:15 Pulse 88 12/05/16 05:15 Resp 20 12/05/16 05:15 BP 134/71 12/05/16 05:15 Pulse Ox 98 12/05/16 03:00 Intake & Output 12/04/16 12/04/16 12/05/16 11:59 23:59 11:59 Intake Total 1068 Balance 1068 Weight 220 lb Intake: IV 868 Dextrose 5%-Normal Saline 868 +20 Meq KCl - 1,000 ml @ 83 mls/hr IV ASDIR [facility] Rx #:[id number] IVPB 100 Oral 100 Other: Voiding Method Toilet Toilet Toilet Bowel Movement No Height 5 ft 7 in Body Mass Index (BMI) 34.4 Weight Measurement Method Stated by Patient Problem List - Problems (1) Vomiting and diarrhea Assessment/Plan: The acute, presenting symptoms have resolved. Advance diet blood work pending this am. OK to d/c and follow up as OP in 1 week Code(s): R11.10 - VOMITING, UNSPECIFIED R19.7 - DIARRHEA, UNSPECIFIED (2) Abnormal abdominal MRI Code(s): R93.5 - ABN FINDINGS ON DX IMAGING OF ABD REGIONS, INC RETROPERITON (3) Chronic alcoholic pancreatitis Code(s): K86.0 - ALCOHOL-INDUCED CHRONIC PANCREATITIS (4) Hyperbilirubinemia Code(s): E80.6 - OTHER DISORDERS OF BILIRUBIN METABOLISM (5) Macrocytic anemia Code(s): D53.9 - NUTRITIONAL ANEMIA, UNSPECIFIED (6) Hypokalemia Code(s): E87.6 - HYPOKALEMIA
[2016-12-05 08:13] LABS: ANION GAP 7 (8-16); CALCIUM 7.7 mg/dL (8.5-10.1); CO2 29 mmol/L (21-32); CREATININE 0.6 mg/dL (0.55-1.02); GLUCOSE,RANDOM 109 mg/dL (74-106); PHOSPHOROUS 2.1 mg/dL (2.5-4.9)
[2016-12-05 08:24] LABS: BILIRUBIN,DIRECT 0.4 mg/dL (0.0-0.2); BILIRUBIN,TOTAL 1.3 mg/dL (0.2-1.0)
[2016-12-05] MEDS ORDERED: PANTOPRAZOLE SODIUM 40 MG in SODIUM CHLORIDE 100 ML IVPB SCH (10:00)
[2016-12-05] MEDS ORDERED: PT OWN MED DRAWER 7, Y5N ONE (10:02)
[2016-12-05] MEDS: LIPASE/PROTEASE/AMYLASE 36,000 UNIT CAPSULE PO SCH (10:09)
[2016-12-05 11:06] VITALS: BP 147/77; PULSE 95; TEMP 99.3
--- NOTE | 2016-12-05 12:34 | DS ---
Physical Examination Vital Signs: Vital Signs Temperature 37.4 C 12/05/16 10:00 Pulse Rate 95 H 12/05/16 10:00 Respiratory Rate 20 12/05/16 10:00 Blood Pressure 147/77 12/05/16 10:00 O2 Sat by Pulse Oximetry (%) 98 12/05/16 03:00 Constitutional: Yes: No Distress, Calm, Obese Cardiovascular: Yes: Regular Rate and Rhythm. No: Gallop, Murmur, Rub Respiratory: Yes: Regular, CTA Bilaterally. No: Rales, Rhonchi, Wheezes Gastrointestinal: Yes: Normal Bowel Sounds, Soft. No: Distention, Tenderness Extremities: Yes: WNL Edema: No Labs: CBC, BMP 12/05/16 06:00 12/05/16 06:00 Discharge Summary Reason For Visit: INTRACTABLE VOMITING WITH NAUSES Current Active Problems Abnormal abdominal MRI (Acute) Chronic alcoholic pancreatitis (Acute) Hyperbilirubinemia (Acute) Hyperlipemia (Acute) Hypokalemia (Acute) Hypomagnesemia (Acute) Intractable nausea and vomiting (Acute) Metabolic acidosis, increased anion gap (Acute) Vomiting and diarrhea (Acute) Hospital Course: (1) Gastroenteritis Code(s): K52.9 - NONINFECTIVE GASTROENTERITIS AND COLITIS, UNSPECIFIED (2) Chronic alcoholic pancreatitis Code(s): K86.0 - ALCOHOL-INDUCED CHRONIC PANCREATITIS (3) Hyperbilirubinemia Code(s): E80.6 - OTHER DISORDERS OF BILIRUBIN METABOLISM Patient presents with gastroenteritis. She was seen by GI. She was hydrated with IVF and placed on clear liquid diet. She improved significantly and is now at baseline. She is safe for discharge home. Condition: Good - Instructions Diet, Activity, Other Instructions: resume previous diet and activity Referrals: Hansel Mock MD [Primary Care Provider] - Disposition: HOME - Home Medications Comprehensive Discharge Medication List: Ambulatory Orders Lipase/Protease/Amylase [Abdiaziz Bingham 36,000 Units Capsule] 1 each PO TID 07/15/16 Quetiapine Fumarate [Seroquel -] 25 mg PO HS 07/15/16 Tramadol HCl [Ultram -] 50 mg PO Q6H PRN 07/15/16
[2016-12-07 08:06] LABS: HEMATOCRIT 34.3 % (34.0-46.6)
== END 2016-12-05 13:41 | disposition home or self-care (01) ==
LOC: JER 18:33 → JERBED 21:44 → J7W 12-04 12:29
PROVIDERS: ADMIT Internal Medicine; ATTEND Internal Medicine
PROC: 3E033GC Introduction of Other Therapeutic Substance into Peripheral Vein, Percutaneous Approach (ICD-10-PCS; principal; 2016-12-03)
PROC: 3E0337Z Introduction of Electrolytic and Water Balance Substance into Peripheral Vein, Percutaneous Approach (ICD-10-PCS; 2016-12-03)
DX: K52.9 Noninfective gastroenteritis and colitis, unspecified (principal); E87.6 Hypokalemia; E83.42 Hypomagnesemia; R11.2 Nausea with vomiting, unspecified; E80.6 Other disorders of bilirubin metabolism; K86.0 Alcohol-induced chronic pancreatitis; K21.9 Gastro-esophageal reflux disease without esophagitis; E78.00 Pure hypercholesterolemia, unspecified; Z87.891 Personal history of nicotine dependence; F10.11 Alcohol abuse, in remission; R93.5 Abnormal findings on diagnostic imaging of other abdominal regions, including retroperitoneum; D53.9 Nutritional anemia, unspecified; Z87.19 Personal history of other diseases of the digestive system
CPT/HCPCS: 36415; 71020-TC; 80048; 80053; 80307; 82247; 82248; 82607; 82746; 82747; 82977; 83690; 83735; 84100; 84703; 85014; 85025; 87086; 93005; 93010; 96374; 96375; 99284-25; G0378

== ENCOUNTER 2018-05-20 10:32 | Emergency (ER) | payer OTHER ==
[2018-05-20 10:37] VITALS: BMI 29.0
[2018-05-20] MEDS ORDERED: PANTOPRAZOLE SODIUM 40 MG in SODIUM CHLORIDE 100 ML IVPB ONE (10:54)
[2018-05-20] MEDS ORDERED: ONDANSETRON 4 MG/2 ML VIAL IVPUSH ONE (10:54)
[2018-05-20] MEDS ORDERED: FOLIC ACID INJECTION - 1 MG, THIAMINE HCL 100 MG, MULTIVIT INJECTION ADULT 10 ML in SOD... IVPB ONE (10:54)
[2018-05-20] MEDS ORDERED: PANTOPRAZOLE SODIUM 40 MG/100 ML BAG IVPB ONE (11:59)
[2018-05-20] MEDS ORDERED: ONDANSETRON 4 MG/2 ML VIAL ONE (12:01)
[2018-05-20] MEDS ORDERED: LORazepam 2 MG/ML SDV VIAL ONE ×2 (12:01→15:46)
--- NOTE | 2018-05-20 12:12 | PDOC ---
History of Present Illness - General Chief Complaint: Alcohol intoxication Stated Complaint: ABDOMINAL PAIN, DETOXING FROM ALCOHOL Time Seen by Provider: 05/20/18 10:51 History Source: Patient Exam Limitations: No Limitations - History of Present Illness Travel History: No Initial Comments: 05/20/18 12:07 42-year-old female with history of pancreatitis and alcohol abuse presents to ED with complaints of upper abdominal pain along with acid reflux and 3 days of diarrhea. Patient states last alcoholic drink was yesterday. Patient states has not been able to eat secondary to nausea. Patient states has been clean of alcohol use for approximately 1 year up until about a week ago. Pt has no complaints at this time. Timing/Duration: reports: constant Quality: reports: mild, burning, cramping Abdominal Pain Onset Location: reports: epigastric Pain Radiation: reports: no radiation Activities at Onset: reports: none Aggravating Factors: improves with: None Alleviating Factors: improves with: None Past History - Travel Traveled outside of the country in the last 30 days: No Close contact w/someone who was outside of country & ill: No - Past Medical History Allergies/Adverse Reactions: Allergies Allergy/AdvReac Type Severity Reaction Status Date / Time No Known Allergies Allergy Verified 05/20/18 10:37 Home Medications: Ambulatory Orders Lipase/Protease/Amylase [Alfonsoon Dr 36,000 Units Capsule] 1 each PO TID 07/15/16 Quetiapine Fumarate [Seroquel -] 25 mg PO HS 07/15/16 traMADol HCL [Ultram -] 50 mg PO Q6H PRN 07/15/16 Asthma: No Cardiac Disorders: No COPD: No Diabetes: No GI Disorders: Yes (PANCREATITIS) Disorders: No HTN: No Hypercholesterolemia: Yes Kidney Stones: No Seizures: No Other medical history: alcohol abuse - Surgical History Abdominal Surgery: No Appendectomy: Yes (1984) Cardiac Surgery: No Cholecystectomy: No Lung Surgery: No Neurologic Surgery: No Orthopedic Surgery: No - Immunization History Immunization Up to Date: Yes - Suicide/Smoking/Psychosocial Hx Smoking Status: No Smoking History: Never smoked Have you smoked in the past 12 months: No Number of Cigarettes Smoked Daily: 0 Information on smoking cessation initiated: No Hx Alcohol Use: Yes (daily) Drug/Substance Use Hx: No Substance Use Type: Alcohol Hx Substance Use Treatment: No Patient Lives Alone: No Lives with/in: children Abd/GI Specific PMHX - Complaint Specific PMHX Hepatitis: No Pancreatitis: Yes Review of Systems - Review of Systems Able to Perform ROS?: No Is the patient limited Micronesian proficient: No Constitutional: Yes: Weakness HEENTM: No: Symptoms Reported Respiratory: No: Symptoms reported Cardiac (ROS): No: Symptoms Reported ABD/GI: Yes: Diarrhea, Nausea, Poor Appetite, Poor Fluid Intake, Indigestion, Abdominal cramping : No: Symptoms Reported Musculoskeletal: No: Symptoms Reported Integumentary: No: Symptoms Reported Neurological: No: Symptoms reported Endocrine: No: Symptoms Reported Hematologic/Lymphatic: No: Symptoms Reported *Physical Exam - Vital Signs Last Vital Signs Temp Pulse Resp BP Pulse Ox 98.3 F 128 H 19 132/88 99 05/20/18 10:34 05/20/18 10:34 05/20/18 10:34 05/20/18 10:34 05/20/18 10:34 - Physical Exam General Appearance: Yes: Nourished, Appropriately Dressed. No: Apparent Distress HEENT: positive: EOMI, SASHA, TMs Normal, Pharynx Normal. negative: Pale Conjunctivae Neck: positive: Supple Respiratory/Chest: positive: Lungs Clear, Normal Breath Sounds. negative: Respiratory Distress, Accessory Muscle Use Cardiovascular: positive: Regular Rhythm, Tachycardia. negative: Murmur Gastrointestinal/Abdominal: positive: Soft, Tenderness (epigastric and right epigastric ), Hepatomegaly. negative: Hernia, Mass Musculoskeletal: negative: CVA Tenderness Extremity: positive: Normal Capillary Refill, Normal Inspection Integumentary: positive: Normal Color, Warm, Moist Neurologic: positive: Motor Strength 5/5 (ambulatory) Heart Score/ECG Review - ECG Intrepretation Rhythm: Regular Rhythm (St 101. no st depression or elevation noted) ED Treatment Course - LABORATORY CBC & Chemistry Diagram: 05/20/18 11:50 05/20/18 11:50 Medical Decision Making - Medical Decision Making 05/20/18 12:00 Complaint:. Patient with alcohol withdrawal including abdominal pain, indigestion and diarrhea. Exam. Patient with hepatomegaly along with epigastric tenderness. Patient also tachycardic upon arrival. Plan: Labs, banana bag, amylase, lipase, urine urine , protonic's Zofran and lorazepam 1 mg IV 05/20/18 13:02 Laboratory Tests 05/20/18 05/20/18 11:50 12:08 WBC 9.4 Hgb 13.9 Hct 40.9 D MCV 103.4 H MCH 35.2 H RDW 21.3 H Urine Nitrite Negative Urine Bilirubin 1+ H Ur Leukocyte Esterase 1+ H Urine WBC (Auto) 11 Urine RBC (Auto) Pending Urine Casts (Auto) 27 Urine HCG, Qual Negative 05/20/18 14:04 Laboratory Tests 05/20/18 11:50 Sodium 135 L Potassium 3.5 Chloride 99 Carbon Dioxide 20 L Anion Gap 16 BUN 8 Creatinine 1.1 Calcium 8.3 L Magnesium 1.4 L Total Bilirubin 1.8 H AST 97 H Alkaline Phosphatase 127 H Total Protein 7.0 Albumin 3.7 Total Amylase 30 Lipase 148 2 gm of mag ordered 05/20/18 15:15 Pt with mild hand tremors while at rest. Pt ordered for an add 0.5 mg of ativan 05/20/18 15:21 Pt has no urinary complaints *DC/Admit/Observation/Transfer Diagnosis at time of Disposition: Alcohol dependence with uncomplicated withdrawal, Hypomagnesemia, Alcohol dependence, Abdominal pain - Discharge Dispostion Disposition: HOME Condition at time of disposition: Improved - Referrals Referrals: Hansel Mock MD [Primary Care Provider] - - Patient Instructions Printed Discharge Instructions: DI for Alcohol Abuse Additional Instructions: Please follow a healthy well balanced diet. Avoid alcohol use and utilize resources to continue abstinence. - Post Discharge Activity
[2018-05-20 12:33] LABS: HCG,QUALITATIVE URINE Negative
[2018-05-20 12:37] LABS: EPI CELLS 8.4 /HPF (0-5); PH,URINE 5.5 (5.0-8.0); URINE APPEARANCE CLOUDY; URINE BACTERIA 1148.6 /hpf (NEGATIVE); URINE BILIRUBIN 1+ (NEGATIVE); URINE CASTS 27 /hpf (0-8); URINE COLOR DK YELLOW; URINE GLUCOSE (UA) NEGATIVE (NEGATIVE); URINE KETONE TRACE (NEGATIVE); URINE LEUK ESTERASE 1+ (NEGATIVE); URINE NITRITE NEGATIVE (NEGATIVE); URINE PROTEIN 1+ (NEGATIVE); URINE WBC 11 /hpf (0-5)
[2018-05-20 12:38] LABS: BASO % 0.4 % (0-2.0); EOS % 0.5 % (0-4.5); HEMATOCRIT 40.9 % (32.4-45.2); HEMOGLOBIN 13.9 GM/dL (10.7-15.3); LYMPH % 14.9 % (8-40); MCH 35.2 pg (25.7-33.7); MEAN CELL VOLUME 103.4 fl (80-96); MONO % 6.9 % (3.8-10.2); NEUT % 77.3 % (42.8-82.8); PLATELET COUNT 188 K/MM3 (134-434); RBC 3.96 M/mm3 (3.60-5.2); RDW 21.3 % (11.6-15.6); WHITE BLOOD COUNT 9.4 K/mm3 (4.0-10.0)
[2018-05-20 13:03] LABS: ALBUMIN 3.7 g/dl (3.4-5.0); ALK PHOS 127 U/L (45-117); AMYLASE 30 U/L (25-115); ANION GAP 16 MMOL/L (8-16); BILIRUBIN,TOTAL 1.8 mg/dL (0.2-1); BLOOD UREA NITROGEN 8 mg/dL (7-18); CALCIUM 8.3 mg/dL (8.5-10.1); CHLORIDE 99 mmol/L (98-107); CO2 20 mmol/L (21-32); CREATININE 1.1 mg/dL (0.55-1.3); GLUCOSE,RANDOM 179 mg/dL (74-106); LIPASE 148 U/L (73-393); MAGNESIUM 1.4 mg/dL (1.8-2.4); POTASSIUM 3.5 mmol/L (3.5-5.1); SGOT/AST 97 U/L (15-37); SGPT/ALT 111 U/L (13-61); SODIUM 135 mmol/L (136-145)
[2018-05-20 13:07] LABS: URINE RBC 10.7 /hpf (0-4)
[2018-05-20] MEDS ORDERED: MAGNESIUM SULF 50% (8.12 MEQ/2 ML-1 GM VIAL) IVPB ONE (13:55)
[2018-05-20] MEDS ORDERED: MAGNESIUM 1GM/D5W - 2 GM/200 ML IVPB IVPB ONE (14:48)
[2018-05-20 14:56] LABS: ANISOCYTOSIS 1+; MACROCYTOSIS 1+; PLATELET ESTIMATE NORMAL
[2018-05-20 15:59] VITALS: BP 120/82; PULSE 98; TEMP 98.2
--- NOTE | 2018-05-21 10:36 | EKG ---
Test Reason : Blood Pressure : / mmHG Vent. Rate : 101 BPM Atrial Rate : 101 BPM P-R Int : 152 ms QRS Dur : 072 ms QT Int : 344 ms P-R-T Axes : 051 056 057 degrees QTc Int : 446 ms SINUS TACHYCARDIA NONSPECIFIC ST AND T WAVE ABNORMALITY ABNORMAL ECG WHEN COMPARED WITH ECG OF 03-DEC-2016 19:48, NO SIGNIFICANT CHANGE WAS FOUND Confirmed by COOPER LEYVA MD ([id number]) on 05/21/2018 10:36:16 AM Referred By: Confirmed By:COOPER LEYVA MD
== END 2018-05-20 15:59 | disposition home or self-care (01) ==
LOC: JER 10:32
PROC: 3E033GC Introduction of Other Therapeutic Substance into Peripheral Vein, Percutaneous Approach (ICD-10-PCS; principal; 2018-05-20)
PROC: 3E033GC Introduction of Other Therapeutic Substance into Peripheral Vein, Percutaneous Approach (ICD-10-PCS; 2018-05-20)
PROC: 3E033GC Introduction of Other Therapeutic Substance into Peripheral Vein, Percutaneous Approach (ICD-10-PCS; 2018-05-20)
PROC: 3E033GC Introduction of Other Therapeutic Substance into Peripheral Vein, Percutaneous Approach (ICD-10-PCS; 2018-05-20)
PROC: 3E033NZ Introduction of Analgesics, Hypnotics, Sedatives into Peripheral Vein, Percutaneous Approach (ICD-10-PCS; 2018-05-20)
PROC: 3E033NZ Introduction of Analgesics, Hypnotics, Sedatives into Peripheral Vein, Percutaneous Approach (ICD-10-PCS; 2018-05-20)
DX: F10.230 Alcohol dependence with withdrawal, uncomplicated (principal); E83.42 Hypomagnesemia
CPT/HCPCS: 36415; 80053; 81003; 82150; 83690; 83735; 84703; 85025; 93005; 93010; 99283-25; J7030

== ENCOUNTER 2019-02-24 14:06 | Emergency (ER) | payer OTHER ==
[2019-02-24 14:15] VITALS: BMI 32.8
[2019-02-24] MEDS ORDERED: SODIUM CHLORIDE 1,000 ML IV STA (15:04)
[2019-02-24] MEDS ORDERED: ONDANSETRON 4 MG/2 ML VIAL IVPUSH ONE (15:06)
--- NOTE | 2019-02-24 15:24 | PDOC ---
History of Present Illness - General Chief Complaint: Pain Stated Complaint: PAIN Time Seen by Provider: 02/24/19 14:39 History Source: Patient Exam Limitations: No Limitations - History of Present Illness Initial Comments: 02/24/19 15:19 Pt is a 43 y/o female who presents to the ED with complaint of diarrhea x 2 weeks and started to have vomiting today. She has a history of pancreatitis in the past. The patient states that she is a chronic alcoholic and has been drinking a bottle of wine daily. Her last episode of pancreatitis was about 1 year ago. She states that after she slowed down on drinking, she has been having pancreatitis less and less. She states she started to drink more over the holidays. She denies any blood in her stool or vomitus. She states she has mild abdominal pain. She has not been taking anything for her symptoms. She denies any other past medical history but states she takes Seroquel before bed every night. Past History - Past Medical History Allergies/Adverse Reactions: Allergies Allergy/AdvReac Type Severity Reaction Status Date / Time No Known Allergies Allergy Verified 02/24/19 14:15 Home Medications: Ambulatory Orders Lipase/Protease/Amylase [Abdiaziz Dr 36,000 Units Capsule] 1 each PO TID 07/15/16 Quetiapine Fumarate [Seroquel -] 25 mg PO HS 07/15/16 traMADol HCL [Ultram -] 50 mg PO Q6H PRN 07/15/16 Asthma: No Cardiac Disorders: No COPD: No Diabetes: No GI Disorders: Yes (PANCREATITIS) Disorders: No HTN: No Hypercholesterolemia: Yes Kidney Stones: No Seizures: No - Surgical History Abdominal Surgery: No Appendectomy: Yes (1984) Cardiac Surgery: No Cholecystectomy: No Lung Surgery: No Neurologic Surgery: No Orthopedic Surgery: No - Immunization History Immunization Up to Date: Yes - Psycho Social/Smoking Cessation Hx Smoking Status: No Smoking History: Never smoked Have you smoked in the past 12 months: No Number of Cigarettes Smoked Daily: 0 Hx Alcohol Use: Yes Drug/Substance Use Hx: No Substance Use Type: Alcohol Hx Substance Use Treatment: No Review of Systems - Review of Systems Able to Perform ROS?: Yes Constitutional: No: Chills, Weakness HEENTM: No: Blurred Vision Respiratory: No: Shortness of Breath, Wheezing Cardiac (ROS): No: Chest Pain, Palpitations, Syncope ABD/GI: Yes: Diarrhea, Vomiting, Other (abdominal pain) : No: Burning, Dysuria, Discharge Integumentary: No: Rash Neurological: No: Headache, Numbness, Tingling Endocrine: No: Increased Urine *Physical Exam - Vital Signs Last Vital Signs Temp Pulse Resp BP Pulse Ox 98 F 100 H 18 158/100 99 02/24/19 14:11 02/24/19 14:11 02/24/19 14:11 02/24/19 14:11 02/24/19 14:11 - Physical Exam General Appearance: Yes: Nourished, Appropriately Dressed, Mild Distress. No: Intoxicated HEENT: positive: SASHA, Other (moist mucosa, no tongue fascicullations ) Respiratory/Chest: positive: Lungs Clear, Normal Breath Sounds. negative: Respiratory Distress Cardiovascular: positive: Regular Rhythm, Tachycardia (mild at 100 bpm) Gastrointestinal/Abdominal: positive: Normal Bowel Sounds, Soft. negative: Tender, Guarding, Rebound, Tenderness Musculoskeletal: positive: Other (mild hand tremors). 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 Pt endorsed to [facility] for continuation of treatment. Discharge - Discharge Information Problems reviewed: Yes Clinical Impression/Diagnosis: Abdominal pain - Follow up/Referral Referrals: Hansel Mock MD [Primary Care Provider] - - Patient Discharge Instructions - Post Discharge Activity
[2019-02-24] MEDS ORDERED: ONDANSETRON 4 MG/2 ML VIAL ONE (15:27)
[2019-02-24 15:28] LABS: BASO % 0.7 % (0-2.0); EOS % 0.7 % (0-4.5); HEMATOCRIT 42.7 % (32.4-45.2); HEMOGLOBIN 14.6 GM/dL (10.7-15.3); LYMPH % 22.9 % (8-40); MCH 33.7 pg (25.7-33.7); MCHC 34.2 g/dl (32.0-36.0); MEAN CELL VOLUME 98.6 fl (80-96); MONO % 6.5 % (3.8-10.2); NEUT % 69.2 % (42.8-82.8); PLATELET COUNT 212 K/MM3 (134-434); RBC 4.34 M/mm3 (3.60-5.2); RDW 13.8 % (11.6-15.6); WHITE BLOOD COUNT 11.4 K/mm3 (4.0-10.0)
[2019-02-24 15:33] LABS: URINE APPEARANCE CLOUDY; URINE BILIRUBIN NEGATIVE (NEGATIVE); URINE COLOR YELLOW; URINE GLUCOSE (UA) NEGATIVE (NEGATIVE); URINE KETONE NEGATIVE (NEGATIVE); URINE LEUK ESTERASE NEGATIVE (NEGATIVE); URINE NITRITE NEGATIVE (NEGATIVE); URINE PROTEIN TRACE (NEGATIVE); URINE UROBILINOGEN 0.2 mg/dL (0.2-1.0)
[2019-02-24 16:10] LABS: ALBUMIN 3.6 g/dl (3.4-5.0); BILIRUBIN,TOTAL 1.1 mg/dL (0.2-1); BLOOD UREA NITROGEN 7.5 mg/dL (7-18); CALCIUM 8.1 mg/dL (8.5-10.1); CREATININE 0.9 mg/dL (0.55-1.3); POTASSIUM 4.8 mmol/L (3.5-5.1); TOT PROT 7.5 g/dl (6.4-8.2)
[2019-02-24] MEDS ORDERED: PANTOPRAZOLE SODIUM 40 MG VIAL IVPB ONE (16:21)
[2019-02-24] MEDS ORDERED: LORazepam 2 MG/ML SDV VIAL ONE (17:02)
[2019-02-24] MEDS ORDERED: PANTOPRAZOLE SODIUM 40 MG VIAL ONE (17:03)
--- NOTE | 2019-02-24 18:14 | PDOC ---
*Physical Exam - Vital Signs Last Vital Signs Temp Pulse Resp BP Pulse Ox 98 F 100 H 18 158/100 99 02/24/19 14:11 02/24/19 14:11 02/24/19 14:11 02/24/19 14:11 02/24/19 14:11 - Physical Exam General Appearance: Yes: Appropriately Dressed Respiratory/Chest: positive: Lungs Clear, Normal Breath Sounds Cardiovascular: positive: Regular Rhythm, Regular Rate ED Treatment Course - LABORATORY CBC & Chemistry Diagram: 02/24/19 15:17 02/24/19 15:17 - ADDITIONAL ORDERS Additional order review: Laboratory Results 02/24/19 02/24/19 02/24/19 15:21 15:17 15:17 Sodium 135 L Potassium 4.8 Chloride 101 Carbon Dioxide 23 Anion Gap 11 BUN 7.5 Creatinine 0.9 Est GFR (CKD-EPI)AfAm 90.13 Est GFR (CKD-EPI)NonAf 77.76 Random Glucose 119 H Calcium 8.1 L Total Bilirubin 1.1 H AST 65 H ALT 60 Alkaline Phosphatase 109 Total Protein 7.5 Albumin 3.6 Lipase 88 Urine Color Yellow Urine Appearance Cloudy Urine pH 5.0 Ur Specific [place] 1.024 Urine Protein Trace Urine Glucose (UA) Negative Urine Ketones Negative Urine Blood Negative Urine Nitrite Negative Urine Bilirubin Negative Urine Urobilinogen 0.2 Ur Leukocyte Esterase Negative 02/24/19 15:17 RBC 4.34 MCV 98.6 H MCHC 34.2 RDW 13.8 D MPV 9.0 Neutrophils % 69.2 Lymphocytes % 22.9 D Monocytes % 6.5 Eosinophils % 0.7 Basophils % 0.7 - Medications Given in the ED: ED Medications Discontinued Medications Generic Name Dose Route Start Last Admin Trade Name Freq PRN Reason Stop Dose Admin Sodium Chloride 1,000 mls @ 1,000 mls/hr 02/24/19 15:04 02/24/19 15:36 Normal Saline - IV 02/24/19 16:03 1,000 mls/hr ASDIR STA Administration Lorazepam 1 mg 02/24/19 16:07 02/24/19 17:07 Ativan Injection - IVPUSH 02/24/19 16:08 1 mg ONCE ONE Administration Ondansetron HCl 4 mg 02/24/19 15:06 02/24/19 15:37 Zofran Injection IVPUSH 02/24/19 15:07 4 mg ONCE ONE Administration Pantoprazole Sodium 40 mg 02/24/19 16:21 02/24/19 17:07 Protonix Iv IVPB 02/24/19 16:22 40 mg ONCE ONE Administration Medical Decision Making - Medical Decision Making 02/24/19 18:10 patient is feeling ok . no withdrawal symptoms. improved after ativan and protonix. no abdominal . advised to refrain from drinking alcohol. patient refuses detox at this time. 02/24/19 18:12 patient is alert awake no slurred speech. tolerated PO.taking a cab home 02/24/19 19:42 HRT 102- 103. patient reports feeling ok. will d/c home Discharge - Discharge Information Problems reviewed: Yes Clinical Impression/Diagnosis: Gastritis Qualifiers: Gastritis type: alcoholic Chronicity: acute Gastritis bleeding: without bleeding Qualified Code(s): K29.20 - Alcoholic gastritis without bleeding Disposition: HOME - Additional Discharge Information Prescriptions: Pantoprazole Sodium [Protonix] 40 mg PO DAILY #20 tablet.dr - Follow up/Referral Referrals: Hansel Mock MD [Primary Care Provider] - - Patient Discharge Instructions Patient Printed Discharge Instructions: [place] Diet Additional Instructions: avoid alcohol use take protonix as prescribed. follow up with a Advertising Teacher as soon as possible. - Post Discharge Activity Work/Back to School Note: Back to Work
[2019-02-24 18:26] VITALS: BP 132/90; TEMP 99.2
[2019-02-24] MEDS ORDERED: chlordiazePOXIDE HCL 25 MG CAPSULE PO ONE (18:27)
[2019-02-24] MEDS ORDERED: chlordiazePOXIDE HCL 25 MG CAPSULE ONE (18:44)
[2019-02-24 19:52] VITALS: PULSE 102
== END 2019-02-24 19:53 | disposition home or self-care (01) ==
LOC: JER 14:06
PROC: 3E0337Z Introduction of Electrolytic and Water Balance Substance into Peripheral Vein, Percutaneous Approach (ICD-10-PCS; principal; 2019-02-24)
PROC: 3E033NZ Introduction of Analgesics, Hypnotics, Sedatives into Peripheral Vein, Percutaneous Approach (ICD-10-PCS; 2019-02-24)
PROC: 3E033GC Introduction of Other Therapeutic Substance into Peripheral Vein, Percutaneous Approach (ICD-10-PCS; 2019-02-24)
PROC: 3E033GC Introduction of Other Therapeutic Substance into Peripheral Vein, Percutaneous Approach (ICD-10-PCS; 2019-02-24)
DX: K29.20 Alcoholic gastritis without bleeding (principal); Z87.19 Personal history of other diseases of the digestive system
CPT/HCPCS: 36415; 80053; 81003; 83690; 85025; 99283-25; J7030

== ENCOUNTER 2019-04-08 20:51 | Inpatient (IN) | payer OTHER ==
--- NOTE | 2019-04-08 21:11 | BHS.RME ---
Substance Use & Tx History - Substance Use History Alcohol Substance amount: 2 bottles wine Frequency of use: Daily Substance route: Oral Date of Last Use: 04/08/19 (2 hours ago) - Last Treatment Date of last treatment: 02/17/2019 Treatment type: Substance Use Disorder ([facility]) Where was last treatment: ER (Given fluids [facility]) Physical/Psych/Mental Status - Behavior Eye Contact: Normal - Cooperativeness Cooperativeness: Cooperative - Thinking Thought Processes: Goal Directed Thought content: Future oriented - Physical Health Problems Is patient presently having any pain?: No Does patient presently have any injuries (include location): No Does patient currently have a fever: No Is patient : No CIWA Nausea/Vomitin Muscle Tremors: 4-Moderate,w/Arms Extend Anxiety: 3 Agitation: 1-Slight > Activity Paroxysmal Sweats: 3 (Increased facial moisture) Orientation: 0-Oriented Tacttile Disturbances: 0-None Auditory Disturbances: 0-None Visual Disturbances: 0-None Headache: 0-None Present CIWA-Ar Total Score: 14
[2019-04-08 21:15] VITALS: BMI 34.4
--- NOTE | 2019-04-08 21:53 | HP ---
CIWA Score Nausea/Vomitin Muscle Tremors: 4-Moderate,w/Arms Extend Anxiety: 3 Agitation: 1-Slight > Activity Paroxysmal Sweats: 3 (Increased facial moisture) Orientation: 0-Oriented Tacttile Disturbances: 0-None Auditory Disturbances: 0-None Visual Disturbances: 0-None Headache: 0-None Present CIWA-Ar Total Score: 14 - Admission Criteria [facility] Guidelines: Admission for Medically Managed Detox: Requires at least one of the followin. CIWA greater than 12 2. Seizures within the past 24 hours 3. Delirium tremens within the past 24 hours 4. Hallucinations within the past 24 hours 5. Acute intervention needed for co occurring medical disorder 6. Acute intervention needed for co occurring psychiatric disorder 7. Severe withdrawal that cannot be handled at a lower level of care (continued vomiting, continued diarrhea, abnormal vital signs) requiring intravenous medication and/or fluids 8. Patient presents the following: CIWA greater than 12, Acute intervention needed for co-occurring med or psych disorder (Elevated blood pressure) Admission Criteria Met: Admission criteria met Admitting History and Physical - Past Medical History Cardiovascular: Yes: HTN Gastrointestinal: Yes: GERD, Pancreatitis Hepatobiliary: Yes: Other (hepatic lesion on MRI, negative CT and US, fatty liver) ...LMP: 02/22/16 Psych: Yes: Addictions (alcohol abuse) - Past Surgical History Past Surgical History: Yes: Appendectomy, (x2) - Smoking History Smoking history: Never smoked Have you smoked in the past 12 months: No Aproximately how many cigarettes per day: 0 - Alcohol/Substance Use Hx Alcohol Use: Yes Number of Drinks Daily: 4 - Social History ADL: Independent History of Recent Travel: No Admission ROS [facility] Chief Complaint: "Came to stop drinking" "I keep trying to do it on my own and it doesn't seem to be working." Allergies/Adverse Reactions: Allergies Allergy/AdvReac Type Severity Reaction Status Date / Time No Known Allergies Allergy Verified 04/08/19 21:48 History of Present Illness: 43 yo presents w/ alcohol withdrawal seeking detox. Longest sobriety 1 year - [id number] ERIC: 0.130 UTox: + BZO Denies seizures or overdose. Past hx blackouts - last year. Denies benzo use or recent treatment. Alcohol use began at age 19. Current use x 2 months. Restarted drinking in January 2019. Denies nicotine use. Denies illicit substances. PMHx: Pancreatitis, intermittent LBP MHHx: Denies depression. Denies thoughts of harming self or others. SHx: Domiciled. Employed. Denies legal issues. Patient Name: Naida Sharpe Date: 1975 Address: [place] [address] Sex: Female Rx Written Rx Dispensed Drug Quantity Days Supply Prescriber Name 10/06/2018 10/09/2018 oxycodone-acetaminophen 5-325 mg tab 40 5 GarberDominique chase (RONNIE) 09/28/2018 09/28/2018 oxycodone-acetaminophen 5-325 mg tab 40 7 Dominique Garber (RONNIE) 07/16/2018 08/11/2018 tramadol hcl 50 mg tablet 60 30 Jonathan Dailey MD 05/03/2018 05/20/2018 tramadol hcl 50 mg tablet 60 30 Jonathan Dailey MD Exam Limitations: No Limitations - Ebola screening Have you traveled outside of the country in the last 21 days: No Have you had contact with anyone from an Ebola affected area: No Have you been sick,other than usual withdrawal symptoms: No Do you have a fever: No - Review of Systems Constitutional: Changes in sleep (Difficulty falling asleep - takes seroquel), Weight Stable EENT: reports: Blurred Vision, Other (Runny nose) Respiratory: reports: No Symptoms reported Cardiac: reports: No Symptoms Reported GI: reports: Diarrhea (watery, dark brown x 3), Nausea, Vomiting (watery yellowish w/ food content x 2 hrs ago), Indigestion (GERD - takes Pepcid), Abdominal cramping, Other (Achy pain across mid belly: constant - r/t drinking; increases w/ vomiting) : reports: No Symptoms Reported Musculoskeletal: reports: Back Pain (Chronic LBP. Triggered by bending, walking , lifting. Improves w/ laying down, bending kees to take pressure off. No pain @ this time) Integumentary: reports: No Symptoms Reported Neuro: reports: Tremors Endocrine: reports: Increased Thirst Hematology: reports: No Symptoms Reported Psychiatric: reports: Mood/Affect Appropiate, Orientated x3, Anxious Patient History - Patient Medical History Hx Asthma: No Hx Chronic Obstructive Pulmonary Disease (COPD): No Hx Cardiac Disorders: No Hx Hypertension: No Hx Hypercholesterolemia: Yes Hx Seizures: No Hx Diabetes: No Hx Gastrointestinal Disorders: Yes (PANCREATITIS) Hx Genitourinary Disorders: No Hx Sexually Transmitted Disorders: No Hx Renal Disease (ESRD): No Hx Depression: No Hx Suicide Attempt: No Hx Schizophrenia: No - Patient Surgical History Past Surgical History: Yes Hx Neurologic Surgery: No Hx Cataract Extraction: No Hx Cardiac Surgery: No Hx Lung Surgery: No Hx Breast Surgery: No Hx Breast Biopsy: No Hx Abdominal Surgery: No Hx Appendectomy: Yes (1985) Hx Cholecystectomy: No Hx Genitourinary Surgery: No Hx Section: Yes (x2) Hx Orthopedic Surgery: No Anesthesia Reaction: No - PPD History Previous Implant?: Yes Documented Results: Negative w/proof Implanted On Prior R Admission?: Yes PPD to be Administered?: Yes - Reproductive History Patient is a Female of Child Bearing Age (11 -55 yrs old): Yes Last Menstrual Period: 04/08/19 Patient : No - Smoking Cessation Smoking history: Never smoked Have you smoked in the past 12 months: No Aproximately how many cigarettes per day: 0 Hx Chewing Tobacco Use: No Initiated information on smoking cessation: No - Substance & Tx. History Hx Alcohol Use: Yes Hx Substance Use: Yes Substance Use Type: Alcohol Hx Substance Use Treatment: Yes (detox, ) - Substances abused Other Other (specify): WINE Substance route: Oral Frequency: Daily Amount used: 4 LITRES Age of first use: 19 Date of last use: 04/08/19 Admission Physical Exam BHS - Vital Signs Vital Signs: Vital Signs - 24 hr 04/08/19 04/08/19 21:10 21:35 Temperature 97.3 F L 97.3 F L Pulse Rate 86 86 Respiratory 20 20 Rate Blood Pressure 157/103 H 157/103 H - Physical General Appearance: Yes: Mild Distress, Obese, Tremorous (Gross tremors upon extension), Sweating (Increased facial moisture), Anxious HEENTM: Yes: EOMI (Jerking movement of eyes upon lateral gaze), Hearing grossly Normal, Normocephalic, Normal Voice, SASHA, Pharynx Normal, Rhinorrhea Respiratory: Yes: Lungs Clear (Pulse Ox = 97 %), Normal Breath Sounds, No Respiratory Distress Neck: Yes: No masses,lesions,Nodules, Supple Breast: Yes: Breast Exam Deferred Cardiology: Yes: Regular Rhythm, Regular Rate, S1, S2 Abdominal: Yes: Non Tender, Soft, Increased Bowel Sounds, Protuberent ( Increased abdominal adiposity) Genitourinary: Yes: Within Normal Limits Back: Yes: Normal Inspection, Surgical Scar (Lumbar area. 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 NML intact (Jerking movement of eyes upon lateral gaze), Fully Oriented, Alert, Motor Strength 5/5, Normal Mood/Affect, Normal Response Integumentary: Yes: Normal Color, Warm, Rash (Increased redness of cheeks) Lymphatic: Yes: Within Normal Limits - Diagnostic (1) Chronic low back pain Current Visit: Yes Status: Chronic Qualifiers: Back pain laterality: midline Sciatica presence: unspecified whether sciatica present Qualified Code(s): M54.5 - Low back pain; G89.29 - Other chronic pain (2) Unspecified nystagmus Current Visit: Yes Status: Acute (3) Elevated blood pressure reading Current Visit: Yes Status: Acute (4) Alcohol dependence with uncomplicated withdrawal Current Visit: Yes Status: Acute (5) Chronic alcoholic pancreatitis Current Visit: Yes Status: Chronic (6) Obesity (BMI 30-39.9) Current Visit: Yes Status: Chronic (7) Rosacea Current Visit: Yes Status: Chronic Cleared for Admission [facility] - Detox or Rehab [facility] Level of Care: Medically Managed Detox Regimen/Protocol: Librium Claeared for Rehab Admission: No Breathalyzer - Breathalyzer Breathalyzer: 0.130 Urine Drug Screen - Test Device Lot number: [id number] Expiration date: 09/22/24 - Control Is test valid?: Yes - Results Drug screen NEGATIVE: No Urine drug screen results: BZO-Benzodiazepines Inpatient Rehab Admission - Rehab Decision to Admit Inpatient rehab admission?: No
[2019-04-08] MEDS ORDERED: P-EPHED 60MG/TRIPROLIDI 2.5MG TABLET PO PRN (22:16)
[2019-04-08] MEDS ORDERED: METHOCARBAMOL 500 MG TABLET PO PRN (22:16)
[2019-04-08] MEDS ORDERED: BISMUTH SUBSALICYLATE 524 MG/30 ML UD PO PRN (22:16)
[2019-04-08] MEDS ORDERED: ACETAMINOPHEN 325 MG TABLET (FP) PO PRN ×2 (22:16)
[2019-04-08] MEDS ORDERED: guaiFENesin 200 MG/10 ML 10 ML UNIT-DOSE CUPS PO PRN (22:16)
[2019-04-08] MEDS ORDERED: MAGNESIUM CITRATE 300 ML BOTTLE PO PRN (22:16)
[2019-04-08] MEDS ORDERED: MAG HYDROX/AL HYDROX/SIMETH 30 ML UNIT-DOSE CUP PO PRN (22:16)
[2019-04-08] MEDS ORDERED: MENTHOL/PHENOL 1 EACH UD MM PRN (22:16)
[2019-04-08] MEDS: chlordiazePOXIDE HCL 10 MG CAPSULE PO PRN (23:16)
[2019-04-08] MEDS: MELATONIN 5 MG TABLETS PO PRN (23:20)
[2019-04-08] MEDS ORDERED: chlordiazePOXIDE HCL 25 MG CAPSULE PO ONE (23:40)
[2019-04-09] MEDS: chlordiazePOXIDE HCL 25 MG CAPSULE PO SCH ×3 (05:02→22:10)
[2019-04-09 09:31] LABS: HEMATOCRIT 32.1 % (32.4-45.2); HEMOGLOBIN 11.3 GM/dL (10.7-15.3); MCH 35.7 pg (25.7-33.7); MCHC 35.3 g/dl (32.0-36.0); MEAN CELL VOLUME 101.2 fl (80-96); MEAN PLT VOLUME 8.6 fl (7.5-11.1); PLATELET COUNT 138 K/MM3 (134-434); RBC 3.17 M/mm3 (3.60-5.2); WHITE BLOOD COUNT 5.5 K/mm3 (4.0-10.0)
[2019-04-09 09:38] LABS: ALBUMIN 2.9 g/dl (3.4-5.0); BILIRUBIN,TOTAL 0.7 mg/dL (0.2-1); BLOOD UREA NITROGEN 11.4 mg/dL (7-18); CALCIUM 7.2 mg/dL (8.5-10.1); CREATININE 0.6 mg/dL (0.55-1.3); TOT PROT 5.7 g/dl (6.4-8.2)
--- NOTE | 2019-04-09 10:04 | PN ---
[facility] CIWA - CIWA Score Nausea/Vomitin-No Nausea/No Vomiting Muscle Tremors: 2 Anxiety: 3 Agitation: 1-Slight > Activity Paroxysmal Sweats: 3 Orientation: 0-Oriented Tacttile Disturbances: 0-None Auditory Disturbances: 0-None Visual Disturbances: 0-None Headache: 2-Mild CIWA-Ar Total Score: 11 S Progress Note (SOAP) Subjective: c/o sweats, headache, anxiety, and stomach cramp. Objective: 04/09/19 10:02 Vital Signs 04/09/19 04/09/19 04/09/19 03:30 04:59 08:50 Temperature 98.3 F 97.9 F Pulse Rate 72 111 H Respiratory 18 18 18 Rate Blood Pressure 100/60 120/78 Laboratory Last Values WBC 5.5 K/mm3 (4.0-10.0) 04/09/19 07:00 RBC 3.17 M/mm3 (3.60-5.2) L 04/09/19 07:00 Hgb 11.3 GM/dL (10.7-15.3) 04/09/19 07:00 Hct 32.1 % (32.4-45.2) L D 04/09/19 07:00 MCV 101.2 fl (80-96) H 04/09/19 07:00 MCH 35.7 pg (25.7-33.7) H 04/09/19 07:00 MCHC 35.3 g/dl (32.0-36.0) 04/09/19 07:00 RDW 15.0 % (11.6-15.6) 04/09/19 07:00 Plt Count 138 K/MM3 (134-434) D 04/09/19 07:00 MPV 8.6 fl (7.5-11.1) 04/09/19 07:00 Sodium 138 mmol/L (136-145) 04/09/19 07:00 Potassium 3.0 mmol/L (3.5-5.1) L 04/09/19 07:00 Chloride 103 mmol/L (98-107) 04/09/19 07:00 Carbon Dioxide 25 mmol/L (21-32) 04/09/19 07:00 Anion Gap 10 MMOL/L (8-16) 04/09/19 07:00 BUN 11.4 mg/dL (7-18) 04/09/19 07:00 Creatinine 0.6 mg/dL (0.55-1.3) 04/09/19 07:00 Est GFR (CKD-EPI)AfAm 128.48 04/09/19 07:00 Est GFR (CKD-EPI)NonAf 110.86 04/09/19 07:00 Random Glucose 88 mg/dL (74-106) 04/09/19 07:00 Calcium 7.2 mg/dL (8.5-10.1) L 04/09/19 07:00 Total Bilirubin 0.7 mg/dL (0.2-1) 04/09/19 07:00 AST 39 U/L (15-37) H 04/09/19 07:00 ALT 56 U/L (13-61) 04/09/19 07:00 Alkaline Phosphatase 98 U/L (45-117) 04/09/19 07:00 Total Protein 5.7 g/dl (6.4-8.2) L 04/09/19 07:00 Albumin 2.9 g/dl (3.4-5.0) L 04/09/19 07:00 Labs noted with low K+ level. Assessment: 04/09/19 10:03 AOX3, in no acute respiratory distress. Full ROM, ambulating in the unit. Withdrawal symptoms. Hypokalemia. Plan: continue detox. increase fluids. potassium chloride 40meq po x2 doses 4hrs apart. Repeat K+ level in AM.
[2019-04-09] MEDS ORDERED: POTASSIUM CHLORIDE TABS 20 MEQ TABLET.ER (FP) PO ONE ×2 (10:05→16:00)
[2019-04-09] MEDS: PANTOPRAZOLE 40 MG TABLET PO SCH (10:23)
[2019-04-09] MEDS: PRENATAL VITAMINS W/ FOLIC ACID TABLET (FP) PO SCH (10:23)
[2019-04-09] MEDS: chlordiazePOXIDE HCL 10 MG CAPSULE PO PRN (10:26)
--- NOTE | 2019-04-09 10:49 | CONSULT ---
[facility] Psychiatric Consult - Data Date of interview: 04/09/19 Admission source: [facility] Identifying data: Revisit to [facility] and admission to [address] [place] [address] for this 43 y/o female self-referred for detoxification treatment. MIRTA issue : alcohol. Patient is single, mother of two, domiciled (lives with her sister) and currently employed. Substance Abuse History: Discussed with patient in this interview. Ms Sharpe admits to consuming one bottle of wine daily. Started drinking ETOH at age 19. Denies history of seizures. Patient is known to the [facility] program in [place] (Dr Chan). Denies smoking cigarettes. Medical History: Medical profile is remarkable for hypertension, chronic lumbar pain, dyslipidemia, GERD, antecedent of pancreatitis and a history of surgeries (appendectomy + two sections). Psychiatric History: Patient denies history of psychiatric hospitalizations. She is currently seeing a private psychiatrist, Dr Lang, in [place] for management of anxiety and insomnia. Medicated with seroquel 50 mg/hs. Ms Sharpe is known to [facility] program. She dropped out years ago (2014) but she voices interest in re-enlisting in that program after completion of detoxification. Patient denies history of suicide attempts. Physical/Sexual Abuse/Trauma History: Not discussed. Patient declines. Additional Comment: Urine drug screen results: BZO-Benzodiazepines. Noted. Mental Status Exam - Mental Status Exam Alert and Oriented to: Time, Place, Person Cognitive Function: Good Patient Appearance: Well Groomed (obese) Mood: Withdrawn, Hopeful Affect: Appropriate, Mood Congruent, Normal Range Patient Behavior: Fatigued, Appropriate, Cooperative Speech Pattern: Clear, Appropriate Voice Loudness: Normal Thought Process: Intact, Goal Oriented Thought Disorder: Not Present Hallucinations: Denies Suicidal Ideation: Denies Homicidal Ideation: Denies Insight/Judgement: Fair Sleep: Poorly, Difficulty falling asleep Appetite: Good Gait/Station: Normal Psychiatric Findings - Problem List ([place] 1, 2,3) (1) Alcohol dependence with uncomplicated withdrawal Current Visit: Yes Status: Acute (2) Alcohol-induced mood disorder Current Visit: Yes Status: Suspected (3) Insomnia Current Visit: Yes Status: Chronic - Initial Treatment Plan Initial Treatment Plan: Psychoeducation. Sleep hygiene. Detoxification. Alcohol- MAT services discussed with the patient. Support. AA meetings. Motivational counseling done in this session. Seroquel 50 mg po hs. Ordered. Side effects/ benefits reviewed with patient. Ms Sharpe is in agreement with this plan of care. Observation.
[2019-04-09] MEDS: hydrOXYzine PAMOATE 25 MG CAPSULE (FP) PO PRN (11:11)
[2019-04-09 18:33] LABS: PH,URINE 5.5 (5.0-8.0); URINE APPEARANCE CLEAR; URINE BILIRUBIN NEGATIVE (NEGATIVE); URINE COLOR YELLOW; URINE GLUCOSE (UA) NEGATIVE (NEGATIVE); URINE KETONE NEGATIVE (NEGATIVE); URINE LEUK ESTERASE NEGATIVE (NEGATIVE); URINE NITRITE NEGATIVE (NEGATIVE); URINE PROTEIN NEGATIVE (NEGATIVE); URINE UROBILINOGEN 0.2 mg/dL (0.2-1.0)
[2019-04-09] MEDS: QUEtiapine FUMARATE 25 MG TABLET PO SCH (22:10)
[2019-04-09] MEDS: THIAMINE HCL 100 MG TABLET (FP) PO SCH (22:10)
[2019-04-10] MEDS ORDERED: chlordiazePOXIDE HCL 10 MG CAPSULE PO PRN
[2019-04-10] MEDS: chlordiazePOXIDE 5 MG CAPSULE PO SCH ×3 (06:13→22:24)
[2019-04-10] MEDS: PANTOPRAZOLE 40 MG TABLET PO SCH (10:26)
[2019-04-10] MEDS: PRENATAL VITAMINS W/ FOLIC ACID TABLET (FP) PO SCH (10:26)
--- NOTE | 2019-04-10 13:15 | PN ---
S CIWA - CIWA Score Nausea/Vomitin-No Nausea/No Vomiting Muscle Tremors: 2 Anxiety: 3 Agitation: 0-Normal Activity Paroxysmal Sweats: 2 Orientation: 0-Oriented Tacttile Disturbances: 0-None Auditory Disturbances: 0-None Visual Disturbances: 1-Very Mild Sensitivity Headache: 1-Very Mild CIWA-Ar Total Score: 9 S Progress Note (SOAP) Subjective: 43 years old female admitted on 04/08/19 for alcohol withdrawal sx management treating with librum detox regiment feeling better today discuss aftercare with staff patient prefers to begin alcohol recovery one day earlier that estimated discharge day of 04/13/19 ensure that safety is the priority on transition to the next level of care encourage the patient to attend behavior and psychosocial therapies groups and meetings while in detox Objective: 04/10/19 13:17 Vital Signs Temperature 98.0 F 04/10/19 08:50 Pulse Rate 89 04/10/19 08:50 Respiratory Rate 18 04/10/19 08:50 Blood Pressure 116/84 04/10/19 08:50 O2 Sat by Pulse Oximetry (%) Laboratory Last Values WBC 5.5 K/mm3 (4.0-10.0) 04/09/19 07:00 RBC 3.17 M/mm3 (3.60-5.2) L 04/09/19 07:00 Hgb 11.3 GM/dL (10.7-15.3) 04/09/19 07:00 Hct 32.1 % (32.4-45.2) L D 04/09/19 07:00 MCV 101.2 fl (80-96) H 04/09/19 07:00 MCH 35.7 pg (25.7-33.7) H 04/09/19 07:00 MCHC 35.3 g/dl (32.0-36.0) 04/09/19 07:00 RDW 15.0 % (11.6-15.6) 04/09/19 07:00 Plt Count 138 K/MM3 (134-434) D 04/09/19 07:00 MPV 8.6 fl (7.5-11.1) 04/09/19 07:00 Sodium 138 mmol/L (136-145) 04/09/19 07:00 Potassium 2.6 mmol/L (3.5-5.1) L* 02/16/20 07:25 Chloride 103 mmol/L (98-107) 04/09/19 07:00 Carbon Dioxide 25 mmol/L (21-32) 04/09/19 07:00 Anion Gap 10 MMOL/L (8-16) 04/09/19 07:00 BUN 11.4 mg/dL (7-18) 04/09/19 07:00 Creatinine 0.6 mg/dL (0.55-1.3) 04/09/19 07:00 Est GFR (CKD-EPI)AfAm 128.48 04/09/19 07:00 Est GFR (CKD-EPI)NonAf 110.86 04/09/19 07:00 Random Glucose 88 mg/dL (74-106) 04/09/19 07:00 Calcium 7.2 mg/dL (8.5-10.1) L 04/09/19 07:00 Total Bilirubin 0.7 mg/dL (0.2-1) 04/09/19 07:00 AST 39 U/L (15-37) H 04/09/19 07:00 ALT 56 U/L (13-61) 04/09/19 07:00 Alkaline Phosphatase 98 U/L (45-117) 04/09/19 07:00 Total Protein 5.7 g/dl (6.4-8.2) L 04/09/19 07:00 Albumin 2.9 g/dl (3.4-5.0) L 04/09/19 07:00 Urine Color Yellow 04/09/19 14:25 Urine Appearance Clear 04/09/19 14:25 Urine pH 5.5 (5.0-8.0) 04/09/19 14:25 Ur Specific [place] 1.005 (1.010-1.035) L 04/09/19 14:25 Urine Protein Negative (NEGATIVE) 04/09/19 14:25 Urine Glucose (UA) Negative (NEGATIVE) 04/09/19 14:25 Urine Ketones Negative (NEGATIVE) 04/09/19 14:25 Urine Blood Negative (NEGATIVE) 04/09/19 14:25 Urine Nitrite Negative (NEGATIVE) 04/09/19 14:25 Urine Bilirubin Negative (NEGATIVE) 04/09/19 14:25 Urine Urobilinogen 0.2 mg/dL (0.2-1.0) 04/09/19 14:25 Ur Leukocyte Esterase Negative (NEGATIVE) 04/09/19 14:25 RPR Titer Nonreactive (NONREACTIVE) 04/09/19 07:00 lab noted low K+ low Ca++ 04/10/19 13:19 K+ supplement 40 meq x 2 dosage repeat K+ 04/10/19 13:20 hold Ca++ while on K+ supplement Assessment: 04/10/19 13:21 alcohol withdrawal Plan: librum regiment
[2019-04-10] MEDS ORDERED: POTASSIUM CHLORIDE ORAL LIQUID 20 MEQ/15 ML PO ONE ×2 (13:30→18:30)
[2019-04-10] MEDS: MAGNESIUM HYDROX 2400MG/30ML ORAL SUSPENSION 30 ML CUP PO PRN (18:23)
[2019-04-10] MEDS: THIAMINE HCL 100 MG TABLET (FP) PO SCH (22:25)
[2019-04-10] MEDS: QUEtiapine FUMARATE 25 MG TABLET PO SCH (22:25)
[2019-04-11] MEDS: IBUPROFEN 400 MG TABLET (FP) PO PRN ×2 (00:51→16:03)
[2019-04-11] MEDS: chlordiazePOXIDE HCL 10 MG CAPSULE PO SCH ×3 (05:49→22:05)
[2019-04-11] MEDS: PRENATAL VITAMINS W/ FOLIC ACID TABLET (FP) PO SCH (10:11)
[2019-04-11] MEDS: PANTOPRAZOLE 40 MG TABLET PO SCH (10:11)
[2019-04-11] MEDS: MAGNESIUM HYDROX 2400MG/30ML ORAL SUSPENSION 30 ML CUP PO PRN (10:12)
--- NOTE | 2019-04-11 10:31 | EKG ---
Test Reason : Blood Pressure : / mmHG Vent. Rate : 090 BPM Atrial Rate : 090 BPM P-R Int : 164 ms QRS Dur : 074 ms QT Int : 384 ms P-R-T Axes : 046 044 044 degrees QTc Int : 469 ms NORMAL SINUS RHYTHM NORMAL ECG WHEN COMPARED WITH ECG OF 20-MAY-2018 12:08, NO SIGNIFICANT CHANGE WAS FOUND Confirmed by Delmi Baker ([id number]) on 04/11/2019 10:31:37 AM Referred By: Dawood Justin Confirmed By:Delmi Baker
--- NOTE | 2019-04-11 12:10 | PN ---
S CIWA - CIWA Score Nausea/Vomitin-No Nausea/No Vomiting Muscle Tremors: 1-None Visible, but [place] Anxiety: 2 Agitation: 0-Normal Activity Paroxysmal Sweats: 1-Minimal Palms Moist Orientation: 0-Oriented Tacttile Disturbances: 0-None Auditory Disturbances: 0-None Visual Disturbances: 0-None Headache: 1-Very Mild CIWA-Ar Total Score: 5 BHS Progress Note (SOAP) Subjective: 43 years old female admitted on 04/08/19 for alcohol withdrawal sx management treating with librium detox regiment prefers to be discharged tomorrow 04/12/19 than estimated discharge date of reports feeling better today less tremor mild anxiety Objective: 04/11/19 12:09 Vital Signs Temperature 97.8 F 04/11/19 08:47 Pulse Rate 103 H 04/11/19 08:47 Respiratory Rate 18 04/11/19 08:47 Blood Pressure 106/77 04/11/19 08:47 O2 Sat by Pulse Oximetry (%) Laboratory Last Values WBC 5.5 K/mm3 (4.0-10.0) 04/09/19 07:00 RBC 3.17 M/mm3 (3.60-5.2) L 04/09/19 07:00 Hgb 11.3 GM/dL (10.7-15.3) 04/09/19 07:00 Hct 32.1 % (32.4-45.2) L D 04/09/19 07:00 MCV 101.2 fl (80-96) H 04/09/19 07:00 MCH 35.7 pg (25.7-33.7) H 04/09/19 07:00 MCHC 35.3 g/dl (32.0-36.0) 04/09/19 07:00 RDW 15.0 % (11.6-15.6) 04/09/19 07:00 Plt Count 138 K/MM3 (134-434) D 04/09/19 07:00 MPV 8.6 fl (7.5-11.1) 04/09/19 07:00 Sodium 138 mmol/L (136-145) 04/09/19 07:00 Potassium 3.4 mmol/L (3.5-5.1) L 04/11/19 07:30 Chloride 103 mmol/L (98-107) 04/09/19 07:00 Carbon Dioxide 25 mmol/L (21-32) 04/09/19 07:00 Anion Gap 10 MMOL/L (8-16) 04/09/19 07:00 BUN 11.4 mg/dL (7-18) 04/09/19 07:00 Creatinine 0.6 mg/dL (0.55-1.3) 04/09/19 07:00 Est GFR (CKD-EPI)AfAm 128.48 04/09/19 07:00 Est GFR (CKD-EPI)NonAf 110.86 04/09/19 07:00 Random Glucose 88 mg/dL (74-106) 04/09/19 07:00 Calcium 7.2 mg/dL (8.5-10.1) L 04/09/19 07:00 Total Bilirubin 0.7 mg/dL (0.2-1) 04/09/19 07:00 AST 39 U/L (15-37) H 04/09/19 07:00 ALT 56 U/L (13-61) 04/09/19 07:00 Alkaline Phosphatase 98 U/L (45-117) 04/09/19 07:00 Total Protein 5.7 g/dl (6.4-8.2) L 04/09/19 07:00 Albumin 2.9 g/dl (3.4-5.0) L 04/09/19 07:00 Urine Color Yellow 04/09/19 14:25 Urine Appearance Clear 04/09/19 14:25 Urine pH 5.5 (5.0-8.0) 04/09/19 14:25 Ur Specific [place] 1.005 (1.010-1.035) L 04/09/19 14:25 Urine Protein Negative (NEGATIVE) 04/09/19 14:25 Urine Glucose (UA) Negative (NEGATIVE) 04/09/19 14:25 Urine Ketones Negative (NEGATIVE) 04/09/19 14:25 Urine Blood Negative (NEGATIVE) 04/09/19 14:25 Urine Nitrite Negative (NEGATIVE) 04/09/19 14:25 Urine Bilirubin Negative (NEGATIVE) 04/09/19 14:25 Urine Urobilinogen 0.2 mg/dL (0.2-1.0) 04/09/19 14:25 Ur Leukocyte Esterase Negative (NEGATIVE) 04/09/19 14:25 RPR Titer Nonreactive (NONREACTIVE) 04/09/19 07:00 lab noted K+ 3.4 potassium supplement 20 meq x 2 dosages today instruct the patient do not take K+ at home prior to primary care provider evaluation Assessment: 04/11/19 12:10 alcohol withdrawal alcohol induced hypokalemia Plan: librium regiment
[2019-04-11] MEDS ORDERED: POTASSIUM CHLORIDE ORAL LIQUID 20 MEQ/15 ML PO ONE ×3 (12:30→16:30)
[2019-04-11] MEDS: MELATONIN 5 MG TABLETS PO PRN (22:05)
[2019-04-11] MEDS: THIAMINE HCL 100 MG TABLET (FP) PO SCH (22:05)
[2019-04-11] MEDS: QUEtiapine FUMARATE 25 MG TABLET PO SCH (22:05)
[2019-04-11] MEDS: hydrOXYzine PAMOATE 25 MG CAPSULE (FP) PO PRN (22:06)
--- NOTE | 2019-04-12 08:51 | DS ---
[facility] Detox Discharge Summary Admission Date: 04/08/19 Discharge Date: 04/12/19 - History Present History: Alcohol Dependence Additional Comments: 43 years old female admitted on 04/08/19 for alcohol withdrawal sx management treated with librium detox regiment Ms Sharpe prefers to be discharged today the she is feeling better and potassium up to 3.4 patient is alert oriented x 3 speech clearly coherently ambulating steady gait seen by psychiatrist resume seroquel cardiac s1s2 regular rate rhythm respiratory clear lungs bilaterally on auscultation extremities full range of motion Pertinent Past History: time for discharge: 42 minutes patient reports that she is going home and return to work and attend AA and community self help groups - Physical Exam Results Vital Signs: Vital Signs Temperature 97.5 F L 04/12/19 06:05 Pulse Rate 66 04/12/19 06:05 Respiratory Rate 18 04/12/19 06:30 Blood Pressure 103/66 04/12/19 06:05 O2 Sat by Pulse Oximetry (%) Pertinent Admission Physical Exam Findings: alcohol withdrawal Laboratory Last Values WBC 5.5 K/mm3 (4.0-10.0) 04/09/19 07:00 RBC 3.17 M/mm3 (3.60-5.2) L 04/09/19 07:00 Hgb 11.3 GM/dL (10.7-15.3) 04/09/19 07:00 Hct 32.1 % (32.4-45.2) L D 04/09/19 07:00 MCV 101.2 fl (80-96) H 04/09/19 07:00 MCH 35.7 pg (25.7-33.7) H 04/09/19 07:00 MCHC 35.3 g/dl (32.0-36.0) 04/09/19 07:00 RDW 15.0 % (11.6-15.6) 04/09/19 07:00 Plt Count 138 K/MM3 (134-434) D 04/09/19 07:00 MPV 8.6 fl (7.5-11.1) 04/09/19 07:00 Sodium 138 mmol/L (136-145) 04/09/19 07:00 Potassium 3.4 mmol/L (3.5-5.1) L 04/11/19 07:30 Chloride 103 mmol/L (98-107) 04/09/19 07:00 Carbon Dioxide 25 mmol/L (21-32) 04/09/19 07:00 Anion Gap 10 MMOL/L (8-16) 04/09/19 07:00 BUN 11.4 mg/dL (7-18) 04/09/19 07:00 Creatinine 0.6 mg/dL (0.55-1.3) 04/09/19 07:00 Est GFR (CKD-EPI)AfAm 128.48 04/09/19 07:00 Est GFR (CKD-EPI)NonAf 110.86 04/09/19 07:00 Random Glucose 88 mg/dL (74-106) 04/09/19 07:00 Calcium 7.2 mg/dL (8.5-10.1) L 04/09/19 07:00 Total Bilirubin 0.7 mg/dL (0.2-1) 04/09/19 07:00 AST 39 U/L (15-37) H 04/09/19 07:00 ALT 56 U/L (13-61) 04/09/19 07:00 Alkaline Phosphatase 98 U/L (45-117) 04/09/19 07:00 Total Protein 5.7 g/dl (6.4-8.2) L 04/09/19 07:00 Albumin 2.9 g/dl (3.4-5.0) L 04/09/19 07:00 Urine Color Yellow 04/09/19 14:25 Urine Appearance Clear 04/09/19 14:25 Urine pH 5.5 (5.0-8.0) 04/09/19 14:25 Ur Specific [place] 1.005 (1.010-1.035) L 04/09/19 14:25 Urine Protein Negative (NEGATIVE) 04/09/19 14:25 Urine Glucose (UA) Negative (NEGATIVE) 04/09/19 14:25 Urine Ketones Negative (NEGATIVE) 04/09/19 14:25 Urine Blood Negative (NEGATIVE) 04/09/19 14:25 Urine Nitrite Negative (NEGATIVE) 04/09/19 14:25 Urine Bilirubin Negative (NEGATIVE) 04/09/19 14:25 Urine Urobilinogen 0.2 mg/dL (0.2-1.0) 04/09/19 14:25 Ur Leukocyte Esterase Negative (NEGATIVE) 04/09/19 14:25 RPR Titer Nonreactive (NONREACTIVE) 04/09/19 07:00 lab noted encourage the patient to follow up K+ serum level with her primary care provider encourage the patient to take calcium supplement - Treatment Hospital Course: Detox Protocol Followed, Detoxed Safely, Responded well, Discharged Condition Good, Rehab Referral Accepted Patient has Accepted a Rehab Referral to: community support approach - Medication Discharge Medications: Ambulatory Orders Quetiapine Fumarate [Seroquel -] 50 mg PO HS 07/15/16 traMADol HCL [Ultram -] 50 mg PO Q6H PRN 07/15/16 Omeprazole Magnesium [Prilosec Otc] 40 mg PO DAILY 04/08/19 - Diagnosis (1) Alcohol dependence with uncomplicated withdrawal Status: Acute (2) Hypokalemia Status: Chronic (3) Obesity (BMI 30-39.9) Status: Chronic - AMA Did Patient Leave Against Medical Advice: No CIWA Score - CIWA Score Nausea/Vomitin-No Nausea/No Vomiting Muscle Tremors: 1-None Visible, but [place] Anxiety: 1-Mildly Anxious Agitation: 0-Normal Activity Paroxysmal Sweats: No Perspiration Orientation: 0-Oriented Tacttile Disturbances: 0-None Auditory Disturbances: 0-None Visual Disturbances: 0-None Headache: 1-Very Mild CIWA-Ar Total Score: 3
[2019-04-12 09:19] VITALS: BP 125/81; PULSE 88; TEMP 97.3
[2019-04-13] MEDS ORDERED: chlordiazePOXIDE HCL 10 MG CAPSULE PO ONE (05:00)
== END 2019-04-12 09:45 | disposition home or self-care (01) | DRG 775 ==
LOC: YASAS 20:51 → Y3N 22:29
PROVIDERS: ADMIT Allergy & Immunology; ATTEND Allergy & Immunology
PROC: HZ2ZZZZ Detoxification Services for Substance Abuse Treatment (ICD-10-PCS; principal; 2019-04-08)
DX: F10.230 Alcohol dependence with withdrawal, uncomplicated (principal); F10.24 Alcohol dependence with alcohol-induced mood disorder; I10 Essential (primary) hypertension; E78.5 Hyperlipidemia, unspecified; E87.6 Hypokalemia; G47.00 Insomnia, unspecified; K21.9 Gastro-esophageal reflux disease without esophagitis; M54.5 Low back pain; G89.29 Other chronic pain; L71.9 Rosacea, unspecified; H55.00 Unspecified nystagmus; E66.9 Obesity, unspecified; Z68.34 Body mass index [BMI] 34.0-34.9, adult
CPT/HCPCS: 36415; 80053; 81003; 84132; 85027; 86593; 93005; 93010

== ENCOUNTER 2019-08-30 04:25 | Inpatient (IN) | payer OTHER ==
--- NOTE | 2019-08-30 04:42 | PDOC ---
History of Present Illness - General Stated Complaint: S.O.B. Time Seen by Provider: 08/30/19 04:26 - History of Present Illness Initial Comments: Naida Sharpe is a 44 y/o female with PMH significant for pancreatitis, GERD, ETOH use disorder, presenting today with sore throat, nausea and vomiting, and shortness of breath. Reports that she has had a sore throat for a couple of days, and this evening started vomiting multiple times. Subsequently had gradual onset shortness of breath worse with exertion. No chest pain. No pleuritic chest pain. No headache. No abd pain. No leg swelling. No diarrhea/constipation. Does not take OCPs. 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 No hx of DVT. SocHx: daily ETOH, never smoker Past History - Medical History Allergies/Adverse Reactions: Allergies Allergy/AdvReac Type Severity Reaction Status Date / Time No Known Allergies Allergy Verified 08/30/19 05:07 Home Medications: Ambulatory Orders traMADol HCL [Ultram -] 50 mg PO Q6H PRN 07/15/16 Quetiapine Fumarate [Seroquel -] 50 mg PO BID 08/30/19 Asthma: No Cardiac Disorders: No COPD: No Diabetes: No GI Disorders: Yes (PANCREATITIS) Disorders: No HTN: No Hypercholesterolemia: Yes Kidney Stones: No Seizures: No - Surgical History Abdominal Surgery: No Appendectomy: Yes (1984) Cardiac Surgery: No Cholecystectomy: No Lung Surgery: No Neurologic Surgery: No Orthopedic Surgery: No - Reproductive History PID: No - Immunization History Immunization Up to Date: Yes - Psycho-Social/Smoking History Smoking Status: No Smoking History: Never smoked Have you smoked in the past 12 months: No Number of Cigarettes Smoked Daily: 0 Review of Systems - Review of Systems Comments:: GENERAL/CONSTITUTIONAL: No fever or chills. No weakness._ HEAD, EYES, EARS, NOSE AND THROAT: No change in vision. No change in hearing. Reports sore throat. CARDIOVASCULAR: No chest pain. Reports shortness of breath. RESPIRATORY: Denies cough, hemoptysis_ GASTROINTESTINAL: Reports nausea and vomiting. No diarrhea or constipation._ GENITOURINARY: No dysuria, frequency, or change in urination._ MUSCULOSKELETAL: No joint or muscle swelling or pain. No neck or back pain._ SKIN: No rash_ NEUROLOGIC: No headache, vertigo, loss of consciousness, or change in strength/sensation._ ENDOCRINE: No increased thirst. No abnormal weight change_ HEMATOLOGIC/LYMPHATIC: No anemia, easy bleeding, or history of blood clots._ ALLERGIC/IMMUNOLOGIC: No hives or skin allergy._ *Physical Exam - Physical Exam GENERAL: Awake, alert, and oriented to person/place/time, in no acute distress_ HEAD: No signs of trauma, normocephalic, atraumatic _ EYES: PERRLA, EOMI, sclera anicteric, conjunctiva clear_ ENT: Hearing grossly normal, nares patent, oropharynx non erythematous without exudates. No uvular deviation. Moist mucosa. Tongue fasciculations on protrusion. NECK: Normal ROM, supple, no lymphadenopathy, JVD, or masses_ LUNGS: No distress, speaks in full sentences, clear to auscultation bilaterally _ HEART: Regular rate and rhythm, normal S1 and S2, no murmurs appreciated, peripheral pulses normal and equal bilaterally._ ABDOMEN: Soft, nontender, normoactive bowel sounds. No guarding, no rebound. No masses_ EXTREMITIES: Normal inspection, Normal range of motion, no edema. No clubbing or cyanosis_ NEUROLOGICAL: Cranial nerves II through XII grossly intact. Normal speech, normal gait, no focal sensorimotor deficits _ SKIN: Warm, mildly diaphoretic, normal turgor, no rashes or lesions noted_ ED Treatment Course - LABORATORY CBC & Chemistry Diagram: 08/31/19 07:26 08/31/19 07:26 - RADIOLOGY Radiology Studies Ordered: Category Date Time Status CHEST X-RAY PORTABLE* [RAD] Stat Radiology 08/30/19 04:39 Ordered Medical Decision Making - Medical Decision Making 08/30/19 04:49 44F hx of GERD, pancreatitis, ETOH use disorder, presenting today with sore throat, multiple episodes of vomiting, shortness of breath worse on exertion gradual onset. 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 -sepsis order set -CT head -CT abd -strep swab 08/30/19 06:13 EKG shows 113 bpm, sinus tachycardia, nml axis, no ST elevation/depression, QTc 449, no significant change from 2019. 08/30/19 06:57 Labs and UA reviewed. Laboratory Tests 08/30/19 08/30/19 08/30/19 05:30 05:30 05:30 WBC 19.3 H RBC 4.12 Hgb 13.1 Hct 39.7 D MCV 96.3 H MCH 31.7 D MCHC 32.9 RDW 18.1 H Plt Count 196 D MPV 9.6 D Absolute Neuts (auto) 17.5 H Neutrophils % 91.0 H D Lymphocytes % 5.4 L D Monocytes % 3.3 L Eosinophils % 0.0 D Basophils % 0.3 Nucleated RBC % 0 PT with INR 13.60 H INR 1.15 H PTT (Actin FS) 27.7 Sodium 137 Chloride 93 L Carbon Dioxide 30 BUN 15.2 Creatinine 0.8 Est GFR (CKD-EPI)AfAm 103.19 Est GFR (CKD-EPI)NonAf 89.04 Random Glucose 142 H Calcium 8.8 Total Bilirubin 2.2 H AST 13 L ALT 21 Alkaline Phosphatase 96 Creatine Kinase 56 Troponin I < 0.02 Total Protein 7.7 Albumin 4.1 Serum , Qual Urine Color Urine Appearance Urine pH Ur Specific [place] Urine Protein Urine Glucose (UA) Urine Ketones Urine Blood Urine Nitrite Urine Bilirubin Urine Urobilinogen Ur Leukocyte Esterase Urine WBC (Auto) Urine Casts (Auto) U Epithel Cells (Auto) Urine Bacteria (Auto) 08/30/19 08/30/19 05:30 05:30 WBC RBC Hgb Hct MCV MCH MCHC RDW Plt Count MPV Absolute Neuts (auto) Neutrophils % Lymphocytes % Monocytes % Eosinophils % Basophils % Nucleated RBC % PT with INR INR PTT (Actin FS) Sodium Chloride Carbon Dioxide BUN Creatinine Est GFR (CKD-EPI)AfAm Est GFR (CKD-EPI)NonAf Random Glucose Calcium Total Bilirubin AST ALT Alkaline Phosphatase Creatine Kinase Troponin I Total Protein Albumin Serum , Qual Negative Urine Color Dk yellow Urine Appearance Clear Urine pH 5.0 Ur Specific [place] 1.033 Urine Protein 3+ H Urine Glucose (UA) Negative Urine Ketones 3+ H Urine Blood Negative Urine Nitrite Negative Urine Bilirubin Negative Urine Urobilinogen 1.0 Ur Leukocyte Esterase Negative Urine WBC (Auto) 5 Urine Casts (Auto) 5 U Epithel Cells (Auto) 18 Urine Bacteria (Auto) 374 08/30/19 07:00 Pt s/o to Dr. Staley and Dr. Trotter pending further work up. Discharge - Discharge Information Problems reviewed: Yes Clinical Impression/Diagnosis: Alcohol dependence with uncomplicated withdrawal, Vomiting Condition: Fair - Admission Yes - Follow up/Referral - Patient Discharge Instructions - Post Discharge Activity CIWA Score Nausea/Vomitin Muscle Tremors: 4-Moderate,w/Arms Extend Anxiety: 1-Mildly Anxious Agitation: 1-Slight > Activity Paroxysmal Sweats: 1-Minimal Palms Moist Orientation: 0-Oriented Tacttile Disturbances: 0-None Auditory Disturbances: 0-None Visual Disturbances: 0-None Headache: 3-Moderate CIWA-Ar Total Score: 16 - Admission Criteria OASAS Guidelines: Admission for Medically Managed Detox: Requires at least one of the followin. CIWA greater than 12 2. Seizures within the past 24 hours 3. Delirium tremens within the past 24 hours 4. Hallucinations within the past 24 hours 5. Acute intervention needed for co occurring medical disorder 6. Acute intervention needed for co occurring psychiatric disorder 7. Severe withdrawal that cannot be handled at a lower level of care (continued vomiting, continued diarrhea, abnormal vital signs) requiring intravenous medication and/or fluids 8.
--- NOTE | 2019-08-30 04:44 | PDOC ---
Attending Attestation - Resident Resident Name: Pablo Gomez - ED Attending Attestation I have performed the following: I have examined & evaluated the patient, The case was reviewed & discussed with the resident, I agree w/resident's findings & plan - HPI HPI: 08/30/19 06:41 see resident hpi - Physicial Exam PE: 08/30/19 06:41 see resident exam - Medical Decision Making 08/30/19 06:42 44-year-old female with history of alcohol abuse now with sore throat nausea and vomiting Patient found to be tremulous on arrival with tachycardia, likely secondary to component of alcohol withdrawal We will plan for CT scan of the head due to vomiting without abdominal pain CT scan abdomen and pelvis for possible pancreatitis Librium 50 mg p.o. given on arrival which has been tolerated IV fluids administered as well We will sign out to dayshift pending results Discharge - Discharge Information Problems reviewed: Yes Clinical Impression/Diagnosis: Alcohol dependence with uncomplicated withdrawal, Vomiting Condition: Fair - Follow up/Referral Referrals: Hansel Mock MD [Primary Care Provider] - - Patient Discharge Instructions - Post Discharge Activity
[2019-08-30] MEDS ORDERED: SODIUM CHLORIDE 0.9% 1000 ML INFUS.BAG IV SCH (05:00)
[2019-08-30] MEDS ORDERED: chlordiazePOXIDE HCL 25 MG CAPSULE PO ONE (05:25)
[2019-08-30] MEDS ORDERED: chlordiazePOXIDE HCL 25 MG CAPSULE ONE ×3 (05:44→21:05)
[2019-08-30] MEDS: SODIUM CHLORIDE 0.9% 1000 ML INFUS.BAG IV SCH (05:47)
[2019-08-30] MEDS ORDERED: ONDANSETRON 4 MG/2 ML VIAL IVPUSH ONE (05:50)
[2019-08-30 06:15] LABS: BASO % 0.3 % (0-2.0); HEMATOCRIT 39.7 % (32.4-45.2); HEMOGLOBIN 13.1 GM/dL (10.7-15.3); LYMPH % 5.4 % (8-40); MCH 31.7 pg (25.7-33.7); MCHC 32.9 g/dl (32.0-36.0); MEAN CELL VOLUME 96.3 fl (80-96); MEAN PLT VOLUME 9.6 fl (7.5-11.1); MONO % 3.3 % (3.8-10.2); PLATELET COUNT 196 K/MM3 (134-434); RBC 4.12 M/mm3 (3.60-5.2); RDW 18.1 % (11.6-15.6); WHITE BLOOD COUNT 19.3 K/mm3 (4.0-10.0)
[2019-08-30 06:22] LABS: EPI CELLS 18 /uL (0-25.1); HYALINE CASTS 5 /uL (0-3.1); URINE APPEARANCE CLEAR; URINE BACTERIA 374 /uL (0-1359); URINE BILIRUBIN NEGATIVE (NEGATIVE); URINE COLOR DK YELLOW; URINE GLUCOSE (UA) NEGATIVE (NEGATIVE); URINE KETONE 3+ (NEGATIVE); URINE LEUK ESTERASE NEGATIVE (NEGATIVE); URINE NITRITE NEGATIVE (NEGATIVE); URINE PROTEIN 3+ (NEGATIVE); URINE WBC 5 /uL (0-25.8)
[2019-08-30] MEDS ORDERED: LORazepam 2 MG/ML SDV VIAL ONE (06:23)
[2019-08-30 06:32] LABS: INR 1.15 (0.83-1.09); PROTHROMBIN TIME (PATIENT) 13.6 SEC (9.7-13.0)
[2019-08-30 06:35] LABS: ACTIVATED PTT 27.7 SECONDS (25.2-36.5)
[2019-08-30 06:48] LABS: ALBUMIN 4.1 g/dl (3.4-5.0); ALK PHOS 96 U/L (45-117); BILIRUBIN,TOTAL 2.2 mg/dL (0.2-1); BLOOD UREA NITROGEN 15.2 mg/dL (7-18); CALCIUM 8.8 mg/dL (8.5-10.1); CHLORIDE 93 mmol/L (98-107); CO2 30 mmol/L (21-32); CREATININE 0.8 mg/dL (0.55-1.3); GLUCOSE,RANDOM 142 mg/dL (74-106); SGOT/AST 13 U/L (15-37); SGPT/ALT 21 U/L (13-61); SODIUM 137 mmol/L (136-145); TOT PROT 7.7 g/dl (6.4-8.2)
[2019-08-30 07:27] LABS: ANION GAP 14 MMOL/L (8-16)
[2019-08-30 07:32] LABS: POTASSIUM 2.9 mmol/L (3.5-5.1)
[2019-08-30] MEDS ORDERED: POTASSIUM CHLORIDE TABS 20 MEQ TABLET.ER (FP) PO ONE ×2 (07:37→07:52)
[2019-08-30 07:38] LABS: URINE RBC 3 /uL (0-23.9)
[2019-08-30] MEDS ORDERED: LACTATED RINGERS SOLUTION 1,000 ML/1,000 ML INFUS.BAG IV STA (07:39)
[2019-08-30 08:00] LABS: LIPASE 98 U/L (73-393)
[2019-08-30] MEDS ORDERED: CIPROFLOXACIN 400 MG/D5W 400 MG/200 ML IVPB IVPB ONE (08:49)
--- NOTE | 2019-08-30 09:23 | HP ---
CHIEF COMPLAINT: intractable vomiting PCP: Dr. Mock HISTORY OF PRESENT ILLNESS: 44F w/ pmhx of chronic alcoholic pancreatitis, GERD, ETOH use disorder, presenting today with sore throat, nausea and vomiting. States she woke up this past Thursday with a sore throat. Has only tried using Listerine, but with no symptomatic relief. Yesterday, she starting having numerous episodes of NBNB vomiting. Denies any sick contacts, changes in diet, abd pain, fever/chills, chest pain, urinary symptoms. Her last meal was yesterday during lunch time and had [place] food, however vomited soon after. Denies taking anything for nausea. Admits to having bouts of shortness of breath associated with her vomiting episodes. She is a daily drinker, usually drinks 1 bottle of wine daily, last drink was on Thursday. Denies having similar symptoms in the past. States she follows up with a bulker in [place] (unable to give name) within the past 6 months to a year. She doesn't recall having a colonoscopy recently. 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 Allergies No Known Allergies Allergy (Verified 08/30/19 05:07) HOME MEDICATIONS: Home Medications Medication Instructions Recorded Quetiapine Fumarate [Seroquel -] 50 mg PO HS 07/15/16 traMADol HCL [Ultram -] 50 mg PO Q6H PRN 07/15/16 Omeprazole Magnesium [Prilosec Otc] 40 mg PO DAILY 04/08/19 REVIEW OF SYSTEMS CONSTITUTIONAL: diaphoresis, loss of appetite Absent: fever, chills, , generalized weakness, malaise, weight change HEENT: Absent: rhinorrhea, nasal congestion, throat pain, throat swelling, difficulty swallowing, mouth swelling, ear pain, eye pain, visual changes CARDIOVASCULAR: Absent: chest pain, syncope, palpitations, irregular heart rate, lightheadedness, peripheral edema RESPIRATORY: Absent: cough, shortness of breath, dyspnea with exertion, orthopnea, wheezing, stridor, hemoptysis GASTROINTESTINAL: nausea, vomiting, diarrhea Absent: abdominal pain, abdominal distension, constipation, melena, hematochezia GENITOURINARY: Absent: dysuria, frequency, urgency, hesitancy, hematuria, flank pain, genital p ain MUSCULOSKELETAL: Absent: myalgia, arthralgia, joint swelling, back pain, neck pain SKIN: rash chest and upper back Absent: itching, pallor HEMATOLOGIC/IMMUNOLOGIC: Absent: easy bleeding, easy bruising, lymphadenopathy, frequent infections ENDOCRINE: Absent: unexplained weight gain, unexplained weight loss, heat intolerance, cold intolerance NEUROLOGIC: Absent: headache, focal weakness or paresthesias, dizziness, unsteady gait, seizure, mental status changes, bladder or bowel incontinence PSYCHIATRIC: Absent: anxiety, depression, suicidal or homicidal ideation, hallucinations. PHYSICAL EXAMINATION Vital Signs - 24 hr 08/30/19 08/30/19 08/30/19 04:30 05:30 06:47 Temperature 97.5 F L 100.0 F H 98.7 F Pulse Rate 110 H Pulse Rate [ 108 H Left Radial] Respiratory 20 22 H 18 Rate Blood Pressure 124/94 Blood Pressure 133/82 [Right Arm] O2 Sat by Pulse 99 97 Oximetry (%) 08/30/19 08:05 Temperature 99.4 F Pulse Rate Pulse Rate [ 118 H Left Radial] Respiratory 18 Rate Blood Pressure Blood Pressure 145/95 [Right Arm] O2 Sat by Pulse 98 Oximetry (%) GENERAL: Comfortable, well-appearing female. NAD. AAOx3. HEENT: AT/NC. EOMI. MMM. No pharyngeal erythema or exudates. NECK: Normal range of motion, no LAD noted. Mild TTP. LUNGS: CTA B/L, no wheezes/rales. HEART: RRR. Normal S1, S2. No murmurs noted. ABDOMEN: Obese, soft NT/ND. Normoactive BS. No rebound tenderness/guarding. MUSCULOSKELETAL: Moves all extremities. EXTREMITIES: No peripheral edema noted. NEUROLOGICAL: Cranial nerves II-XII intact. Normal speech. PSYCHIATRIC: Cooperative. Good eye contact. Appropriate mood and affect. SKIN: Warm, dry, normal turgor. erythematous rash in broad distribution across upper back and chest; non-tender, non-raised. CBCD WBC 19.3 K/mm3 (4.0-10.0) H 08/30/19 05:30 RBC 4.12 M/mm3 (3.60-5.2) 08/30/19 05:30 Hgb 13.1 GM/dL (10.7-15.3) 08/30/19 05:30 Hct 39.7 % (32.4-45.2) D 08/30/19 05:30 MCV 96.3 fl (80-96) H 08/30/19 05:30 MCHC 32.9 g/dl (32.0-36.0) 08/30/19 05:30 RDW 18.1 % (11.6-15.6) H 08/30/19 05:30 Plt Count 196 K/MM3 (134-434) D 08/30/19 05:30 MPV 9.6 fl (7.5-11.1) D 08/30/19 05:30 CMP Sodium 137 mmol/L (136-145) 08/30/19 05:30 Potassium 2.9 mmol/L (3.5-5.1) L* 08/30/19 05:30 Chloride 93 mmol/L (98-107) L 08/30/19 05:30 Carbon Dioxide 30 mmol/L (21-32) 08/30/19 05:30 Anion Gap 14 MMOL/L (8-16) 08/30/19 05:30 BUN 15.2 mg/dL (7-18) 08/30/19 05:30 Creatinine 0.8 mg/dL (0.55-1.3) 08/30/19 05:30 Calcium 8.8 mg/dL (8.5-10.1) 08/30/19 05:30 Total Bilirubin 2.2 mg/dL (0.2-1) H 08/30/19 05:30 AST 13 U/L (15-37) L 08/30/19 05:30 ALT 21 U/L (13-61) 08/30/19 05:30 Alkaline Phosphatase 96 U/L (45-117) 08/30/19 05:30 Total Protein 7.7 g/dl (6.4-8.2) 08/30/19 05:30 Albumin 4.1 g/dl (3.4-5.0) 08/30/19 05:30 IMAGING: * CT head: neg * CXR: neg * CTAP: Hepatomegaly w/ diffuse fatty infiltration of liver. Findings suspicious for mild colitis, most marked within R colon. Colonoscopy warranted. * EKG showed sinus tachycardia, HR 113, QTc 449 ms, no ST-T changes or ischemic changes ASSESSMENT/PLAN: 44F w/ pmhx of pancreatitis, GERD, ETOH use disorder, presenting today with sore throat, nausea and vomiting, admitted for acute alcohol withdrawal and hypokalemia. #Intractable Vomiting; May be due to alcohol-induced gastritis vs. acute on chronic alcoholic pancreatitis vs. viral gastroenteritis -Symptoms have subsided since admission -Zofran for nausea PRN -Protonix 40 PO QD -Will trial on clears and advance diet as tolerated; if unable to tolerate, will make NPO -CTAP findings showed mild colitis; will cover empirically with IV abx -GI consulted -Lipase wnl #Acute Alcohol Withdrawal; CIWA 11 -In ED, given PO Librium 25 x1 -Will cont Librium protocol given significant history of alcohol abuse in the past. Has needed alcohol detox, last known treatment for alc withdrawal at [facility] was 04/14 -Alcohol cessation counseling -Cont to monitor for symptoms -Ativan 2 mg Q4H PRN for withdrawal -Banana bag ordered. Cont with Thiamine/Folate/MVI #Pharyngitis; Rapid strep neg. No pharyngeal exudates/erythema seen. -Throat culture ordered -Cepachol lozenges #Colitis; CTAP findings +mild colitis in R colon, WBC 19.3 with L shift -In ED, given IV Ciprofloxacin/Metronidazole; will cont abx for empiric Gram (-) and anaerobic coverage -IV Levaquin 750, IV Metronidazole 500 Q8H #Rash; ? etiology. Has had rash for several weeks, but does not bother her, applies lotion. -ID consulted. Given symptoms of sore throat, rash, leukocytosis; will need to rule out other causes of infection #Hypokalemia; Initial K 2.9 -In ED, given PO K-dur, will cont to trend for goal of 4 -EKG showed sinus tachycardia, HR 113, QTc 449 ms, no ST-T changes or ischemic changes #Lactic Acidosis; Initial 2.4 --> 1.8. Resolved after IVf given. #Insomnia; Cont home med: Seroquel 50 BID #Prophylaxis DVT: Lovenox GI: Protonix 40 #FEN -NS @ 75 -recheck lytes in AM (K, Mag) -Clear liquid diet for now, advance as tolerated Dispo -admit to tele given electrolyte disturbance; can downgrade once resolved as pt is otherwise hemodynamically stable -COVID pending Visit type - Emergency Visit Emergency Visit: Yes ED Registration Date: 08/30/19 Care time: The patient presented to the Emergency Department on the above date and was hospitalized for further evaluation of their emergent condition. - New Patient This patient is new to me today: No - Critical Care Critical Care patient: No ATTENDING PHYSICIAN STATEMENT I saw and evaluated the patient. I reviewed the resident's note and discussed the case with the resident. I agree with the resident's findings and plan as documented. SUBJECTIVE: OBJECTIVE: ASSESSMENT AND PLAN:
--- NOTE | 2019-08-30 09:30 | PDOC ---
*Physical Exam - Vital Signs Last Vital Signs Temp Pulse Resp BP Pulse Ox 99.4 F 118 H 18 145/95 98 08/30/19 08:05 08/30/19 08:05 08/30/19 08:05 08/30/19 08:05 08/30/19 08:05 ED Treatment Course - LABORATORY CBC & Chemistry Diagram: 08/30/19 05:30 08/30/19 05:30 - ADDITIONAL ORDERS Additional order review: Laboratory Results 08/30/19 08/30/19 08/30/19 08:41 05:30 05:30 PT with INR INR PTT (Actin FS) Sodium Potassium Chloride Carbon Dioxide Anion Gap BUN Creatinine Est GFR (CKD-EPI)AfAm Est GFR (CKD-EPI)NonAf Random Glucose Lactic Acid 1.8 Calcium Ferritin Total Bilirubin AST ALT Alkaline Phosphatase Creatine Kinase Troponin I C-Reactive Protein Total Protein Albumin Lipase Serum , Qual Negative Urine Color Dk yellow Urine Appearance Clear Urine pH 5.0 Ur Specific Alexander 1.033 Urine Protein 3+ H Urine Glucose (UA) Negative Urine Ketones 3+ H Urine Blood Negative Urine Nitrite Negative Urine Bilirubin Negative Urine Urobilinogen 1.0 Ur Leukocyte Esterase Negative Urine WBC (Auto) 5 Urine RBC (Auto) 3 Urine Casts (Auto) 5 U Epithel Cells (Auto) 18 Urine Bacteria (Auto) 374 08/30/19 08/30/19 08/30/19 05:30 05:30 05:30 PT with INR 13.60 H INR 1.15 H PTT (Actin FS) 27.7 Sodium 137 Potassium 2.9 L* Chloride 93 L Carbon Dioxide 30 Anion Gap 14 BUN 15.2 Creatinine 0.8 Est GFR (CKD-EPI)AfAm 103.19 Est GFR (CKD-EPI)NonAf 89.04 Random Glucose 142 H Lactic Acid 2.4 H* Calcium 8.8 Ferritin 350.4 Total Bilirubin 2.2 H AST 13 L ALT 21 Alkaline Phosphatase 96 Creatine Kinase 56 Troponin I < 0.02 C-Reactive Protein < 0.3 Total Protein 7.7 Albumin 4.1 Lipase 98 Serum , Qual Urine Color Urine Appearance Urine pH Ur Specific Alexander Urine Protein Urine Glucose (UA) Urine Ketones Urine Blood Urine Nitrite Urine Bilirubin Urine Urobilinogen Ur Leukocyte Esterase Urine WBC (Auto) Urine RBC (Auto) Urine Casts (Auto) U Epithel Cells (Auto) Urine Bacteria (Auto) 08/30/19 05:30 RBC 4.12 MCV 96.3 H MCHC 32.9 RDW 18.1 H MPV 9.6 D Neutrophils % 91.0 H D Lymphocytes % 5.4 L D Monocytes % 3.3 L Eosinophils % 0.0 D Basophils % 0.3 - Medications Given in the ED: ED Medications Discontinued Medications Generic Name Dose Route Start Last Admin Trade Name Randi PRN Reason Stop Dose Admin Chlordiazepoxide HCl 25 mg 08/30/19 05:25 08/30/19 05:48 Librium - PO 08/30/19 05:26 25 mg ONCE ONE Administration Lactated Ringer's 1,000 ml in 1,000 mls @ 1,000 mls/hr 08/30/19 07:39 08/30/19 08:15 Lactated Ringers Solution IV 08/30/19 08:38 1,000 mls/hr ONCE STA Administration Lorazepam 2 mg 08/30/19 05:47 08/30/19 06:30 Ativan Injection - IVPUSH 08/30/19 05:48 2 mg ONCE ONE Administration Ondansetron HCl 4 mg 08/30/19 05:50 08/30/19 05:54 Zofran Injection IVPUSH 08/30/19 05:51 4 mg ONCE ONE Administration Potassium Chloride 40 meq 08/30/19 07:37 08/30/19 08:15 K-Dur - PO 08/30/19 07:38 40 meq ONCE ONE Administration Medical Decision Making - Medical Decision Making 08/30/19 09:27 Patient signed out to me at 7am. Complaining of sore throat. Denies abdominal pain or diarrhea. Last emesis was several hours prior. CT head: no acute findings CT A/P: mild colitis Strep: neg K: 2.9, and given 40meq PO lipase: wnl Elevated WBC could be from colitis, but it may also be from repeated emesis. Withdrawing and continued emesis, so will admit for IV antibiotics and observation. -Given additional 1L LR -Started on IV cipro/flagyl for colitis Admitting team aware and accepting patient to med/surg. 08/30/19 09:31 08/30/19 09:34 Discharge - Discharge Information Problems reviewed: Yes Clinical Impression/Diagnosis: Alcohol dependence with uncomplicated withdrawal, Vomiting Condition: Fair - Follow up/Referral - Patient Discharge Instructions - Post Discharge Activity
[2019-08-30] MEDS ORDERED: ONDANSETRON 4 MG/2 ML VIAL IVPUSH PRN (09:45)
[2019-08-30] MEDS ORDERED: ENOXAPARIN NA (PORCINE) 40 MG/0.4 ML DISP.SYRIN SQ ONE (10:16)
[2019-08-30] MEDS ORDERED: chlordiazePOXIDE HCL 10 MG CAPSULE PO PRN (10:21)
[2019-08-30] MEDS: PANTOPRAZOLE 40 MG TABLET PO SCH (10:24)
[2019-08-30] MEDS: SODIUM CHLORIDE 1,000 ML IV SCH (10:24)
[2019-08-30] MEDS: ENOXAPARIN NA (PORCINE) 40 MG/0.4 ML DISP.SYRIN SQ SCH (10:24)
[2019-08-30] MEDS ORDERED: LORazepam 2 MG/ML SDV VIAL IVPUSH PRN (10:52)
[2019-08-30] MEDS ORDERED: THIAMINE HCL 200 MG/2 ML VIAL IVPB ONE (11:06)
[2019-08-30 11:25] LABS: ANISOCYTOSIS 1+; MACROCYTOSIS 1+; PLATELET ESTIMATE NORMAL
[2019-08-30] MEDS: BENZOCAINE/MENTH/CETYLPYRD CL 1 EACH LOZENGE MM PRN (11:49)
[2019-08-30] MEDS ORDERED: FOLIC ACID INJECTION - 1 MG, THIAMINE HCL 100 MG, MULTIVIT INJECTION ADULT 10 ML in SOD... IVPB ONE (12:00)
--- NOTE | 2019-08-30 12:03 | EKG ---
Test Reason : Blood Pressure : / mmHG Vent. Rate : 113 BPM Atrial Rate : 113 BPM P-R Int : 150 ms QRS Dur : 080 ms QT Int : 328 ms P-R-T Axes : 054 067 049 degrees QTc Int : 449 ms SINUS TACHYCARDIA OTHERWISE NORMAL ECG WHEN COMPARED WITH ECG OF 08-APR-2019 22:37, NO SIGNIFICANT CHANGE WAS FOUND Confirmed by MD Perry Daniel ([id number]) on 08/30/2019 12:02:19 PM Referred By: Confirmed By:Sonny Perry MD
[2019-08-30] MEDS: chlordiazePOXIDE HCL 25 MG CAPSULE PO SCH ×2 (13:27→21:43)
[2019-08-30 13:42] LABS: BILIRUBIN,DIRECT 0.6 mg/dL (0.0-0.2)
--- NOTE | 2019-08-30 13:58 | CON.ID ---
Consult - Past Medical History Cardio/Vascular: Yes: HTN Gastrointestinal: Yes: GERD, Pancreatitis Hepatobiliary: Yes: Other (hepatic lesion on MRI, negative CT and US, fatty liver) ...LMP: 04/08/19 Psych: Yes: Addictions (alcohol abuse) - Past Surgical History Past Surgical History: Yes: Appendectomy, (x2) - Alcohol/Substance Use Hx Alcohol Use: Yes Number of Drinks Daily: 4 - Smoking History Smoking history: Never smoked Have you smoked in the past 12 months: No Aproximately how many cigarettes per day: 0 - Social History Usual Living Arrangement: With Parent ADL: Independent History of Recent Travel: No Home Medications - Allergies Allergies/Adverse Reactions: Allergies Allergy/AdvReac Type Severity Reaction Status Date / Time No Known Allergies Allergy Verified 08/30/19 05:07 - Home Medications Home Medications: Ambulatory Orders traMADol HCL [Ultram -] 50 mg PO Q6H PRN 07/15/16 Quetiapine Fumarate [Seroquel -] 50 mg PO BID 08/30/19 Physical Exam Vital Signs: Vital Signs Temperature 98.4 F 08/30/19 11:44 Pulse Rate 98 H 08/30/19 11:44 Respiratory Rate 18 08/30/19 08:05 Blood Pressure 145/95 08/30/19 08:05 O2 Sat by Pulse Oximetry (%) 98 08/30/19 08:05 Labs: CBC, BMP 08/30/19 05:30 08/30/19 05:30
--- NOTE | 2019-08-30 15:39 | PN ---
Teaching Attending Note Name of Resident: Emily Nice ATTENDING PHYSICIAN STATEMENT I saw and evaluated the patient. I reviewed the resident's note and discussed the case with the resident. I agree with the resident's findings and plan as documented. SUBJECTIVE: 44 year old female with known history of pancreatitis, obesity, heavy alcohol use who is presenting with sore throat, nausea, vomiting. Found to have leukocytosis of over 19. OBJECTIVE: Gen appears obese, appropriate for stated age Agree with objective assessment by Dr Nice Integumentary singleton, she has a diffuse rash over entire anterior and posterior torso and face. She has a deep violacious malar rash bilaterally. Blanching, nontender. ASSESSMENT AND PLAN: 1. Leukocytosis, ?etiology - empiric antibiotic in the ED samara in setting of abnormal abdominal CT - cont empiric antibiotics until seen by ID - fluid hydration - anti emetics 2. ETOH dependence/abuse - MVI, thiamine, folic acid - IVF - Librium to taper and prn ativan - continuous assessment for signs and symptoms consistent with withdrawal Case discussed with Dr Nice and I agree [facility] plans of care.
[2019-08-30] MEDS ORDERED: MAG HYDROX/AL HYDROX/SIMETH 30 ML UNIT-DOSE CUP PO ONE (16:17)
[2019-08-30] MEDS ORDERED: MAG HYDROX/AL HYDROX/SIMETH 30 ML UNIT-DOSE CUP ONE (16:23)
--- NOTE | 2019-08-30 17:47 | PN ---
Teaching Attending Note Name of Resident: Emily Nice ATTENDING PHYSICIAN STATEMENT I saw and evaluated the patient. I reviewed the resident's note and discussed the case with the resident. I agree with the resident's findings and plan as documented. SUBJECTIVE: OBJECTIVE: ASSESSMENT AND PLAN:
[2019-08-30] MEDS ORDERED: QUEtiapine FUMARATE 25 MG TABLET ONE (21:39)
[2019-08-30] MEDS: QUEtiapine FUMARATE 50 MG TABLET PO SCH (21:43)
[2019-08-31] MEDS ORDERED: chlordiazePOXIDE HCL 25 MG CAPSULE ONE (05:09)
[2019-08-31] MEDS: chlordiazePOXIDE HCL 25 MG CAPSULE PO SCH ×3 (05:12→21:43)
[2019-08-31] MEDS: SODIUM CHLORIDE 0.9% 1000 ML INFUS.BAG IV SCH (05:17)
[2019-08-31 05:50] VITALS: BMI 35.2
[2019-08-31 08:03] LABS: BASO % 0.4 % (0-2.0); EOS % 2.1 % (0-4.5); HEMATOCRIT 33.3 % (32.4-45.2); LYMPH % 29.5 % (8-40); MCH 31.9 pg (25.7-33.7); MCHC 33.1 g/dl (32.0-36.0); MEAN CELL VOLUME 96.5 fl (80-96); MONO % 3.2 % (3.8-10.2); NEUT % 64.8 % (42.8-82.8); PLATELET COUNT 120 K/MM3 (134-434); RBC 3.45 M/mm3 (3.60-5.2); RDW 17.6 % (11.6-15.6); WHITE BLOOD COUNT 7.6 K/mm3 (4.0-10.0)
[2019-08-31 08:24] LABS: BLOOD UREA NITROGEN 5.7 mg/dL (7-18); CALCIUM 7.6 mg/dL (8.5-10.1); CREATININE 0.6 mg/dL (0.55-1.3); MAGNESIUM 1.3 mg/dL (1.8-2.4); PHOSPHOROUS 1.6 mg/dL (2.5-4.9)
[2019-08-31 08:30] LABS: POTASSIUM 2.7 mmol/L (3.5-5.1)
[2019-08-31] MEDS ORDERED: POTASSIUM CHLORIDE TABS 20 MEQ TABLET.ER (FP) PO ONE (09:34)
[2019-08-31] MEDS: ENOXAPARIN NA (PORCINE) 40 MG/0.4 ML DISP.SYRIN SQ SCH (09:36)
[2019-08-31] MEDS: QUEtiapine FUMARATE 50 MG TABLET PO SCH ×2 (09:36→21:43)
[2019-08-31] MEDS: FOLIC ACID 1 MG TABLET (FP) PO SCH (09:36)
[2019-08-31] MEDS: MULTIVITAMINS (DAILY MVI) TABLET (FP) PO SCH (09:36)
[2019-08-31] MEDS: PANTOPRAZOLE 40 MG TABLET PO SCH (09:36)
[2019-08-31] MEDS: THIAMINE HCL 100 MG TABLET (FP) PO SCH (09:37)
[2019-08-31] MEDS: BENZOCAINE/MENTH/CETYLPYRD CL 1 EACH LOZENGE MM PRN (09:37)
[2019-08-31] MEDS: KCL 10 MEQ IVPB 10 MEQ/100 ML INFUS.BAG IVPB SCH ×3 (09:39→14:27)
[2019-08-31] MEDS ORDERED: THIAMINE HCL 200 MG/2 ML VIAL IVPB SCH (10:00)
[2019-08-31] MEDS ORDERED: POTASSIUM CHLORIDE ORAL LIQUID 20 MEQ/15 ML PO ONE ×3 (10:45→21:15)
[2019-08-31] MEDS ORDERED: MAGNESIUM SULF 50% (8.12 MEQ/2 ML-1 GM VIAL) IVPB ONE ×2 (11:05→18:47)
[2019-08-31] MEDS ORDERED: POTASSIUM PHOSPHATE 30 MM in SODIUM CHLORIDE 500 ML IVPB ONE ×2 (12:00→21:00)
--- NOTE | 2019-08-31 12:33 | PN ---
Progress Note, Physician History of Present Illness: patient feels better throat still bothering her rash has improved - Current Medication List Current Medications: Active Medications Benzocaine/Menthol (Cepacol Lozenge -) 1 each MM PRN PRN PRN Reason: SORE THROAT Last Admin: 08/31/19 09:37 Dose: 1 each Documented by: Chlordiazepoxide HCl (Librium -) 25 mg PO Q8H DERICK Stop: 08/31/19 21:01 Last Admin: 08/31/19 05:12 Dose: 25 mg Documented by: Chlordiazepoxide HCl (Librium -) 10 mg PO Q12H PRN PRN Reason: Signs/symptoms of Withdrawal Stop: 09/02/19 23:59 Chlordiazepoxide HCl (Librium -) 10 mg PO Q8H PRN PRN Reason: Signs/symptoms of Withdrawal Stop: 09/01/19 23:59 Chlordiazepoxide HCl (Librium -) 15 mg PO Q8H DERICK Stop: 09/01/19 21:01 Chlordiazepoxide HCl (Librium -) 10 mg PO Q8H DERICK Stop: 09/02/19 21:01 Chlordiazepoxide HCl (Librium -) 10 mg PO ONCE ONE Stop: 09/03/19 05:01 Enoxaparin Sodium (Lovenox -) 40 mg SQ DAILY [facility] Last Admin: 08/31/19 09:36 Dose: 40 mg Documented by: Folic Acid (Folic Acid -) 1 mg PO DAILY DERICK Last Admin: 08/31/19 09:36 Dose: 1 mg Documented by: Metronidazole (Flagyl 500mg Premixed Ivpb -) 500 mg in 100 mls @ 100 mls/hr IVPB Q8H-IV DERICK Last Admin: 08/31/19 09:36 Dose: 100 mls/hr Documented by: Sodium Chloride (Normal Saline -) 1,000 mls @ 75 mls/hr IV ASDIR DERICK Last Admin: 08/30/19 10:24 Dose: 75 mls/hr Documented by: Levofloxacin (Levaquin 750 Mg Premixed Ivpb -) 750 mg in 150 mls @ 100 mls/hr IVPB DAILY DERICK; Protocol Last Admin: 08/31/19 09:35 Dose: 100 mls/hr Documented by: Potassium Chloride (Potassium Chloride 10 Meq Premix Ivpb -) 10 meq in 100 mls @ 100 mls/hr IVPB Q60M [facility] Stop: 08/31/19 12:44 Last Admin: 08/31/19 09:39 Dose: 100 mls/hr Documented by: Potassium Phosphate 30 mm/ (Sodium Chloride) 510 mls @ 62.5 mls/hr IVPB ONCE ONE Stop: 08/31/19 20:09 Lorazepam (Ativan Injection -) 2 mg IVPUSH Q4H PRN PRN Reason: WITHDRAWAL(CONT SUBST) Multivitamins/Minerals/Vitamin C (Tab-A-Vit -) 1 tab PO DAILY [facility] Last Admin: 08/31/19 09:36 Dose: 1 tab Documented by: Ondansetron HCl (Zofran Injection) 4 mg IVPUSH Q8H PRN PRN Reason: NAUSEA Pantoprazole Sodium (Protonix -) 40 mg PO DAILY [facility] Last Admin: 08/31/19 09:36 Dose: 40 mg Documented by: Quetiapine Fumarate (Seroquel -) 50 mg PO BID [facility] Last Admin: 08/31/19 09:36 Dose: 50 mg Documented by: Sodium Chloride (Normal Saline -) 1,000 ml IV ONCE [facility] Last Admin: 08/31/19 05:17 Dose: 1,000 ml Documented by: Thiamine HCl (Vitamin B1 -) 100 mg PO DAILY [facility] Last Admin: 08/31/19 09:37 Dose: 100 mg Documented by: Tramadol HCl (Ultram -) 50 mg PO Q6H PRN PRN Reason: PAIN 4-6 - Objective Vital Signs: Vital Signs Temperature 99 F 08/31/19 09:00 Pulse Rate 95 H 08/31/19 09:00 Respiratory Rate 18 08/31/19 09:00 Blood Pressure 127/75 08/31/19 09:00 O2 Sat by Pulse Oximetry (%) 95 08/31/19 09:00 Constitutional: Yes: Calm, Mild Distress Respiratory: Yes: Regular, CTA Bilaterally Gastrointestinal: Yes: Normal Bowel Sounds, Soft Musculoskeletal: Yes: WNL Extremities: Yes: WNL Neurological: Yes: Alert, Oriented Psychiatric: Yes: Alert, Oriented Labs: CBC, BMP 08/31/19 07:26 08/31/19 07:26 INR, PTT INR 1.15 (0.83-1.09) H 08/30/19 05:30 Assessment/Plan 44F w/ pmhx of pancreatitis, GERD, ETOH use disorder, presenting today with sore throat, nausea and vomiting, admitted for acute alcohol withdrawal and hypokalemia. vomiting etoh withdrawl pharyngitis colitis rash plan patient improving will continue levaquin and flagyl will order strep throat gi seeing the patient rest as per the team
--- NOTE | 2019-08-31 13:59 | CON.GI ---
Consult Consult Specialty:: gastroenterology Reason for Consultation:: intractable vomiting - History of Present Illness History of Present Illness: The patient is a 44 yo female who presented to the ER for evaluation of vomiting. She states that Thursday she noted a sore throat and then developed vomiting on Thursday and diarrhea. The patient denies any hematemsis or bleeding rectally with these symptoms. Her abdominal pain developed after the vomiting. Currently her abdominal complaints have resided and is tolerating a clear liquid diet. She has a history of ETOH abuse and recently went to detox at [facility] before the COVID pandemic. She admits to drinking 1 bottle of wine per day, with her last drink on Thursday. - History Source History Provided By: Patient Limitations to Obtaining History: No Limitations - Past Medical History [employer]: No: Migraine, Seizure Cardio/Vascular: Yes: HTN Pulmonary: Yes: Asthma. No: Bronchitis Gastrointestinal: Yes: GERD, Pancreatitis Hepatobiliary: Yes: Other (hepatic lesion on MRI, negative CT and US, fatty liver). No: Cholelithiasis, Hepatitis A, Hepatitis B, Hepatitis C Renal/: No: Hematuria, UTI ...LMP: 04/07/19 ...: No Psych: Yes: Addictions (alcohol abuse) - Past Surgical History Past Surgical History: Yes: Appendectomy, (x2) Additional Surgical History: back surgery - Alcohol/Substance Use Hx Alcohol Use: Yes Number of Drinks Daily: 4 - Smoking History Smoking history: Never smoked Have you smoked in the past 12 months: No Aproximately how many cigarettes per day: 0 - Social History Usual Living Arrangement: With Parent ADL: Independent History of Recent Travel: No <Linnea Finney - Last Filed: 08/31/19 16:53> Home Medications <Linnea Finney - Last Filed: 08/31/19 16:53> <Ami Stringer - Last Filed: 08/31/19 21:10> - Allergies Allergies/Adverse Reactions: Allergies Allergy/AdvReac Type Severity Reaction Status Date / Time No Known Allergies Allergy Verified 08/30/19 05:07 - Home Medications Home Medications: Ambulatory Orders traMADol HCL [Ultram -] 50 mg PO Q6H PRN 07/15/16 Quetiapine Fumarate [Seroquel -] 50 mg PO BID 08/30/19 Family Medical History Family Hx Gastrointestinal Disorder: Mother (no history of colon cancer in her familys history) <Linnea Finney - Last Filed: 08/31/19 16:53> Review of Systems - Review of Systems Constitutional: reports: Fever. denies: Chills HENT: reports: Throat Pain (with swallowing) Cardiovascular: denies: Chest Pain, Palpitations, Shortness of Breath Respiratory: denies: Cough, SOB Gastrointestinal: denies: Abdominal Pain, Constipation, Nausea Genitourinary: denies: Burning, Dysuria Integumentary: denies: Blister, Bruising Neurological: denies: Headache, Tremors Hematology/Lymphatic: denies: Easily Bruised, Excessive Bleeding <Linnea Finney - Last Filed: 08/31/19 16:53> Physical Exam-GI Vital Signs: Vital Signs Temperature 99 F 08/31/19 09:00 Pulse Rate 95 H 08/31/19 09:00 Respiratory Rate 18 08/31/19 09:00 Blood Pressure 127/75 08/31/19 09:00 O2 Sat by Pulse Oximetry (%) 95 08/31/19 09:00 Constitutional: Yes: No Distress, Calm HENT: Yes: WNL Neck: Yes: WNL, Supple Cardiovascular: Yes: WNL, Regular Rate and Rhythm Respiratory: Yes: WNL, Regular, CTA Bilaterally ...Palpate: No: Guarding, Hepatomegaly, Mass, Tenderness ...Rectal Exam: Yes: Sphincter Tone Normal (no gross blood with rectal exam.), Other. No: Mass Edema: No Peripheral Pulses WNL: No Wound/Incision: No: Well Approximated Neurological: Yes: WNL, Alert, Oriented. No: Confusion Psychiatric: Yes: Alert, Oriented Labs: CBC, BMP 08/31/19 07:26 08/31/19 07:26 INR, PTT INR 1.15 (0.83-1.09) H 08/30/19 05:30 Laboratory Tests 08/30/19 08/30/19 08/30/19 05:30 06:25 07:00 Phosphorus Magnesium Direct Bilirubin 0.6 H AST 13 L ALT 21 Alkaline Phosphatase 96 COVID-19 ([facility]) Pending Group A Strep Rapid Negative 08/31/19 07:26 Phosphorus 1.6 L Magnesium 1.3 L Direct Bilirubin AST 11 L ALT 16 Alkaline Phosphatase 70 COVID-19 ([facility]) Group A Strep Rapid <Linnea Finney - Last Filed: 08/31/19 16:53> Vital Signs: Vital Signs Temperature 98.5 F 08/31/19 20:30 Pulse Rate 91 H 08/31/19 20:30 Respiratory Rate 18 08/31/19 20:30 Blood Pressure 126/79 08/31/19 20:30 O2 Sat by Pulse Oximetry (%) 95 08/31/19 09:00 Labs: CBC, BMP 08/31/19 07:26 08/31/19 17:00 INR, PTT INR 1.15 (0.83-1.09) H 08/30/19 05:30 <Ami Stringer - Last Filed: 08/31/19 21:10> Imaging - Results Cat Scan: Other (CT scan with IV constrast: mild thickening of the right colon, fatty liver ilfiltration) <Linnea Finney - Last Filed: 08/31/19 16:53> Problem List - Problems (1) Colitis Assessment/Plan: Pt with evidence of colitis on CT-(iv contrast only) scan, resolving leukocytosis and afebrile, no complaints of continued abdominal symptoms. She is tolerating a clear liquid diet. Regarding the colitis it is recommended to r/o infectious causes. Stool for ova and parasites and c diff should be collected Continue IV abx, recommending cipro and flagyl Problems reviewed: Yes Code(s): K52.9 - NONINFECTIVE GASTROENTERITIS AND COLITIS, UNSPECIFIED (2) Abnormal abdominal MRI Assessment/Plan: MRI completed in 05/2016 revealed 1 cm arterial enhancing focus in right heaptic dome. Recommend repeat ultrasound of the liver to evaluate this finding Problems reviewed: Yes Code(s): R93.5 - ABN FINDINGS ON DX IMAGING OF ABD REGIONS, INC RETROPERITON (3) Alcohol dependence Assessment/Plan: ETOH protocol withdrawl, pt on librium. Monitor CIWA protocol Problems reviewed: Yes Code(s): F10.20 - ALCOHOL DEPENDENCE, UNCOMPLICATED <Linnea Finney - Last Filed: 08/31/19 16:53> Assessment/Plan PATIENT WAS SEEN AND EXAMINED AGREE WITH ASSESSMENT AND PLAN OUTLINED ABOVE PT WITH SORE THROAT AND COMPLAINTS OF LEFT THROAT / NECK SWELLING WHICH HAS WORSENED SINCE THE SYMPTOMS BEGAN ALSO WITH N/V/DIARRHEA. HER GI COMPLAINST ARE MOST LIKELY SECONDARY TO AN UNDERLYING INFECTIOUS PROCESS. SHE STATES HER GI COMPLAINTS HAVE RESOLVED BUT HER THROAT SORENESS HAS NOT. REC: - C/ W ABX - REY CULTURE - F/U THROAT CULTURES - CONSIDER IMAGING THE NECK - ID EVALUATION - STOOL CULTURES C.DIFF ( CT REVIEWED ) - DIET TOLERATED <Ami Stringer - Last Filed: 08/31/19 21:10>
[2019-08-31] MEDS: traMADol HCL 50 MG TABLET PO PRN ×2 (14:03→21:42)
[2019-08-31] MEDS ORDERED: ALBUMIN HUMAN 25% 12.5 GM/50 ML VIAL IVPB SCH (14:45)
[2019-08-31] MEDS ORDERED: cefTRIAXone SODIUM 1 GM VIAL ONE (14:46)
[2019-08-31] MEDS ORDERED: DEXTROSE 5%-WATER - 50 ML IVPB ONE (14:47)
[2019-08-31] MEDS: CEFTRIAXONE 1 GM in DEXTROSE 5%-WATER - 50 ML IVPB SCH (15:03)
--- NOTE | 2019-08-31 15:54 | PN ---
Teaching Attending Note Name of Resident: Mary Poole ATTENDING PHYSICIAN STATEMENT I saw and evaluated the patient. I reviewed the resident's note and discussed the case with the resident. I agree with the resident's findings and plan as documented. SUBJECTIVE: pain in throat and R ear. No fever or chills. has diarrhea but it improved form watery to more formed stool. no N.V now. no abd pain . no hematochezia last drink 3 days ago. OBJECTIVE: NAD, cooperative MMM, oropharynx with erythema on both sides, no exudate , no follicular appearance, R submandibular painful lymph node. no other lymphadenopathy in neck. tympanic membrane and external auditory canal is normal b/l. CV: RRR, 2/6 sm at LLSB. Lungs: CTAB Abd: soft, NT, Nd , NL BS, obese. No hepatosplenomegaly Ext : No edema or erythema ASSESSMENT AND PLAN: 44 y/o lady with h/o pancreatitis , ETOH abuse, who presented with N/V , and diarrhea . 1- N/V /diarrhea. likely due to R sided colitis. alcohol withdrawal could be contributing. - CT scan report reviewed. - start ceftriaxone and cont flagyl, due to the E coli resistance to fluoroquinolon - Gi eval pending - WBC improved 2- sore throat. neck lymphadenopathy. no exudate or follicular appearance. doubt strep throat. rapid test before Abx neg . - follow throat cx - FOLOW covid TEST . 3- ETOH use. no signs of withdrawal today. -cont librium - give IV thiamine - no signs of Wernicke's 4- Hypokalemia, hypophosphatemia, and hypomagnesemia . replete and repeat level todAY 5- dvt px . LOVENOX
[2019-08-31] MEDS: SODIUM CHLORIDE 1,000 ML IV SCH (16:22)
[2019-08-31] MEDS ORDERED: THIAMINE HCL 200 MG/2 ML VIAL IVPB ONE (16:32)
[2019-08-31 17:59] LABS: BLOOD UREA NITROGEN 4.1 mg/dL (7-18); CALCIUM 8.1 mg/dL (8.5-10.1); CREATININE 0.8 mg/dL (0.55-1.3); MAGNESIUM 2.1 mg/dL (1.8-2.4); PHOSPHOROUS 1.6 mg/dL (2.5-4.9)
--- NOTE | 2019-08-31 19:07 | PN ---
Physical Exam: SUBJECTIVE: Patient seen and examined bedside. In no acute distress. Complaining of sore throat and ear pain. Had diarrhea again since starting back on liquid diet. OBJECTIVE: Vital Signs - 8 hr 08/31/19 08/31/19 14:05 17:54 Temperature 98.2 F 98.1 F Pulse Rate 89 93 H Respiratory 18 18 Rate Blood Pressure 134/77 120/64 GENERAL: The patient is awake, alert, and fully oriented, in no acute distress. CIWAA score 0 EYES: PERRL, extraocular movements intact, sclera anicteric, conjunctiva clear. No ptosis. ENT: Ears normal, oropharynx has erythema but without exudates, moist mucous membranes. NECK: Left sided mildy tender sub mandibular lymph node on palpation LUNGS: Breath sounds equal, clear to auscultation bilaterally, no wheezes, no crackles. HEART: Regular rate and rhythm, S1, S2 without murmur, rub or gallop. ABDOMEN: Soft, nontender, nondistended, normoactive bowel sounds, no guarding, no rebound, no hepatosplenomegaly, no masses. EXTREMITIES: 2+ pulses, warm, well-perfused, no edema. NEUROLOGICAL: Normal speech, gait not observed. PSYCH: Normal mood, normal affect. Laboratory Results - last 24 hr 08/30/19 08/31/19 08/31/19 07:00 07:26 07:26 WBC 7.6 RBC 3.45 L Hgb 11.0 Hct 33.3 D MCV 96.5 H MCH 31.9 MCHC 33.1 RDW 17.6 H Plt Count 120 L D MPV 9.0 Absolute Neuts (auto) 4.9 Neutrophils % 64.8 D Lymphocytes % 29.5 D Monocytes % 3.2 L Eosinophils % 2.1 D Basophils % 0.4 Nucleated RBC % 0 Sodium 141 Potassium 2.7 L* Chloride 104 Carbon Dioxide 31 Anion Gap 6 L BUN 5.7 L Creatinine 0.6 Est GFR (CKD-EPI)AfAm 127.58 Est GFR (CKD-EPI)NonAf 110.08 Random Glucose 92 Calcium 7.6 L Phosphorus 1.6 L Magnesium 1.3 L Total Bilirubin 1.0 AST 11 L ALT 16 Alkaline Phosphatase 70 Total Protein 6.0 L Albumin 3.0 L COVID-19 ([facility]) Not detected Group A Strep Rapid 08/31/19 08/31/1908/30/20 13:30 17:00 17:00 WBC RBC Hgb Hct MCV MCH MCHC RDW Plt Count MPV Absolute Neuts (auto) Neutrophils % Lymphocytes % Monocytes % Eosinophils % Basophils % Nucleated RBC % Sodium 141 Potassium 3.0 L 3.0 L Chloride 105 Carbon Dioxide 23 Anion Gap 12 BUN 4.1 L Creatinine 0.8 Est GFR (CKD-EPI)AfAm 103.19 Est GFR (CKD-EPI)NonAf 89.04 Random Glucose 154 H Calcium 8.1 L Phosphorus 1.6 L Magnesium 2.1 Total Bilirubin AST ALT Alkaline Phosphatase Total Protein Albumin COVID-19 ([facility]) Group A Strep Rapid Negative Active Medications Generic Name Dose Route Start Last Admin Trade Name Freq PRN Reason Stop Dose Admin Benzocaine/Menthol 1 each 08/30/19 09:45 08/31/19 09:37 Cepacol Lozenge - MM 1 each PRN PRN Administration SORE THROAT Chlordiazepoxide HCl 25 mg 08/30/19 13:00 08/31/19 13:04 Librium - PO 08/31/19 21:01 25 mg Q8H DERICK Administration Chlordiazepoxide HCl 10 mg 09/02/19 00:00 Librium - PO 09/02/19 23:59 Q12H PRN Signs/symptoms of Withdrawal Chlordiazepoxide HCl 10 mg 08/30/19 10:21 Librium - PO 09/01/19 23:59 Q8H PRN Signs/symptoms of Withdrawal Chlordiazepoxide HCl 15 mg 09/01/19 05:00 Librium - PO 09/01/19 21:01 Q8H DERICK Chlordiazepoxide HCl 10 mg 09/02/19 05:00 Librium - PO 09/02/19 21:01 Q8H DERICK Chlordiazepoxide HCl 10 mg 09/03/19 05:00 Librium - PO 09/03/19 05:01 ONCE ONE Enoxaparin Sodium 40 mg 08/30/19 10:00 08/31/19 09:36 Lovenox - SQ 40 mg DAILY DERICK Administration Folic Acid 1 mg 08/31/19 10:00 08/31/19 09:36 Folic Acid - PO 1 mg DAILY DERICK Administration Metronidazole 500 mg in 100 mls @ 100 mls/hr 08/30/19 10:00 08/31/19 17:34 Flagyl 500mg Premixed Ivpb - IVPB 100 mls/hr Q8H-IV DERICK Administration Sodium Chloride 1,000 mls @ 75 mls/hr 08/30/19 10:15 08/31/19 16:22 Normal Saline - IV 75 mls/hr ASDIR DERICK Administration Potassium Phosphate 30 mm/ 510 mls @ 62.5 mls/hr 08/31/19 12:00 08/31/19 15:03 Sodium Chloride IVPB 08/31/19 20:09 62.5 mls/hr ONCE ONE Administration Ceftriaxone Sodium 1 gm/ 50 mls @ 100 mls/hr 08/31/19 14:25 08/31/19 15:03 Dextrose IVPB 100 mls/hr DAILY DERICK Administration Lorazepam 2 mg 08/30/19 10:52 Ativan Injection - IVPUSH Q4H PRN WITHDRAWAL(CONT SUBST) Multivitamins/Minerals/Vitamin C 1 tab 08/31/19 10:00 08/31/19 09:36 Tab-A-Vit - PO 1 tab DAILY DERICK Administration Ondansetron HCl 4 mg 08/30/19 09:45 Zofran Injection IVPUSH Q8H PRN NAUSEA Pantoprazole Sodium 40 mg 08/30/19 10:15 08/31/19 09:36 Protonix - PO 40 mg DAILY DERICK Administration Quetiapine Fumarate 50 mg 08/30/19 22:00 08/31/19 09:36 Seroquel - PO 50 mg BID DERICK Administration Sodium Chloride 1,000 ml 08/30/19 05:00 08/31/19 05:17 Normal Saline - IV 1,000 ml ONCE DERICK Administration Thiamine HCl 100 mg 08/31/19 10:00 08/31/19 09:37 Vitamin B1 - PO 100 mg DAILY DERICK Administration Tramadol HCl 50 mg 08/30/19 15:47 08/31/19 14:03 Ultram - PO 50 mg Q6H PRN Administration PAIN 4-6 ASSESSMENT/PLAN: 44F w/ pmhx of pancreatitis, GERD, ETOH use disorder, presenting today with sore throat, nausea and vomiting, admitted for acute alcohol withdrawal and hy pokalemia. Electrolyte Depletion hypo mg, phos, & K given IV kphos x3, IV mg x2 and oral potassium 40 mg x3. Labs ordered to check electrolytes again at 12AM - night team told to recheck levels and replete if necessary Colitis; CTAP findings +mild colitis in R colon, WBC 19.3 with L shift -In ED, given IV Ciprofloxacin/Metronidazolege -swtiched to IV Ceftriaxone 1g due to community resistance, & continue IV Metronidazole 500 Q8H Intractable Vomiting; resolved -Symptoms have subsided since admission -Zofran for nausea PRN -Protonix 40 PO QD -CTAP findings showed mild colitis; on metronidazole and ceftriaxone -GI consulted -stool cultures/wbc/&parasites ordered to rule out cdiff and other infectious causes Acute Alcohol Withdrawal; CIWA score 0 today -In ED, given PO Librium 25 x1 -Will cont Librium protocol given significant history of alcohol abuse in the past. Has needed alcohol detox, last known treatment for alcohol withdrawal at [facility] was 04/14 -Alcohol cessation counseling -Cont to monitor for symptoms -Ativan 2 mg Q4H PRN for withdrawal -Banana bag ordered. Cont with Thiamine/Folate/MVI Pharyngitis Rapid strep neg. -Throat culture ordered -Cepachol lozenges prn Insomnia; Cont home med: Seroquel 50 BID Prophylaxis DVT: Lovenox GI: Protonix 40 FEN -NS @ 75 -Clear liquid diet for now, advance as tolerated Dispo -admit to tele given electrolyte disturbance; can downgrade once resolved as pt is otherwise hemodynamically stable -COVID pending Visit type - Emergency Visit Emergency Visit: Yes ED Registration Date: 08/30/19 Care time: The patient presented to the Emergency Department on the above date and was hospitalized for further evaluation of their emergent condition. - New Patient This patient is new to me today: Yes Date on this admission: 09/01/19 - Critical Care Critical Care patient: No - Discharge Referral Referred to [facility] Med P.C.: No ATTENDING PHYSICIAN STATEMENT I saw and evaluated the patient. I reviewed the resident's note and discussed the case with the resident. I agree with the resident's findings and plan as documented. SUBJECTIVE: OBJECTIVE: ASSESSMENT AND PLAN:
[2019-08-31] MEDS ORDERED: PT OWN MED DRAWER 7, Y5N ONE (21:26)
[2019-09-01] MEDS: SODIUM CHLORIDE 1,000 ML IV SCH ×2 (01:46→12:58)
[2019-09-01 03:16] LABS: BLOOD UREA NITROGEN 3.6 mg/dL (7-18); CALCIUM 7.7 mg/dL (8.5-10.1); CREATININE 0.5 mg/dL (0.55-1.3); PHOSPHOROUS 3.4 mg/dL (2.5-4.9); POTASSIUM 3.5 mmol/L (3.5-5.1)
[2019-09-01] MEDS: SODIUM CHLORIDE 0.9% 1000 ML INFUS.BAG IV SCH (04:48)
[2019-09-01] MEDS: chlordiazePOXIDE 5 MG CAPSULE PO SCH ×3 (05:03→21:23)
[2019-09-01 06:56] LABS: HEMOGLOBIN 10.3 GM/dL (10.7-15.3); MCH 32.2 pg (25.7-33.7); MCHC 33.1 g/dl (32.0-36.0); MEAN CELL VOLUME 97.1 fl (80-96); MEAN PLT VOLUME 9.1 fl (7.5-11.1); PLATELET COUNT 107 K/MM3 (134-434); RBC 3.19 M/mm3 (3.60-5.2); RDW 17.8 % (11.6-15.6); WHITE BLOOD COUNT 5.5 K/mm3 (4.0-10.0)
[2019-09-01] MEDS: traMADol HCL 50 MG TABLET PO PRN ×2 (07:15→15:17)
[2019-09-01 07:23] LABS: ALBUMIN 2.7 g/dl (3.4-5.0); BILIRUBIN,TOTAL 0.4 mg/dL (0.2-1); BLOOD UREA NITROGEN 4.3 mg/dL (7-18); CALCIUM 7.5 mg/dL (8.5-10.1); CREATININE 0.4 mg/dL (0.55-1.3); PHOSPHOROUS 3.4 mg/dL (2.5-4.9); POTASSIUM 3.3 mmol/L (3.5-5.1); TOT PROT 5.2 g/dl (6.4-8.2)
[2019-09-01] MEDS ORDERED: cefTRIAXone SODIUM 1 GM VIAL ONE (08:27)
[2019-09-01] MEDS ORDERED: DEXTROSE 5%-WATER - 50 ML IVPB ONE (08:27)
[2019-09-01] MEDS: CEFTRIAXONE 1 GM in DEXTROSE 5%-WATER - 50 ML IVPB SCH (09:34)
[2019-09-01] MEDS: PANTOPRAZOLE 40 MG TABLET PO SCH (09:35)
[2019-09-01] MEDS: ENOXAPARIN NA (PORCINE) 40 MG/0.4 ML DISP.SYRIN SQ SCH (09:35)
[2019-09-01] MEDS: FOLIC ACID 1 MG TABLET (FP) PO SCH (09:35)
[2019-09-01] MEDS: QUEtiapine FUMARATE 50 MG TABLET PO SCH ×2 (09:35→21:23)
[2019-09-01] MEDS: MULTIVITAMINS (DAILY MVI) TABLET (FP) PO SCH (09:35)
[2019-09-01] MEDS: THIAMINE HCL 100 MG TABLET (FP) PO SCH (09:36)
[2019-09-01] MEDS ORDERED: PANTOPRAZOLE SODIUM 40 MG VIAL IVPUSH SCH (12:30)
[2019-09-01] MEDS ORDERED: PANTOPRAZOLE SODIUM 40 MG in SODIUM CHLORIDE 100 ML IVPB SCH (12:30)
--- NOTE | 2019-09-01 12:45 | PN ---
Progress Note (short form) - Note Progress Note: covering for Dr Hart pt asymptomatic, Hgb < than 8 refused EGD made aware of risks including severe GI bleeding consider to transfuse 1 more unit of PRBC
[2019-09-01] MEDS: METOCLOPRAMIDE HCL INJECTION 10 MG/2 ML VIAL IVPB SCH ×2 (12:58→17:30)
--- NOTE | 2019-09-01 13:23 | PN ---
Progress Note, Physician - Current Medication List Current Medications: Active Medications Benzocaine/Menthol (Cepacol Lozenge -) 1 each MM PRN PRN PRN Reason: SORE THROAT Last Admin: 08/31/19 09:37 Dose: 1 each Documented by: Chlordiazepoxide HCl (Librium -) 10 mg PO Q12H PRN PRN Reason: Signs/symptoms of Withdrawal Stop: 09/02/19 23:59 Chlordiazepoxide HCl (Librium -) 10 mg PO Q8H PRN PRN Reason: Signs/symptoms of Withdrawal Stop: 09/01/19 23:59 Chlordiazepoxide HCl (Librium -) 15 mg PO Q8H [facility] Stop: 09/01/19 21:01 Last Admin: 09/01/19 13:00 Dose: 15 mg Documented by: Chlordiazepoxide HCl (Librium -) 10 mg PO Q8H [facility] Stop: 09/02/19 21:01 Chlordiazepoxide HCl (Librium -) 10 mg PO ONCE ONE Stop: 09/03/19 05:01 Enoxaparin Sodium (Lovenox -) 40 mg SQ DAILY [facility] Last Admin: 09/01/19 09:35 Dose: 40 mg Documented by: Folic Acid (Folic Acid -) 1 mg PO DAILY [facility] Last Admin: 09/01/19 09:35 Dose: 1 mg Documented by: Metronidazole (Flagyl 500mg Premixed Ivpb -) 500 mg in 100 mls @ 100 mls/hr IVPB Q8H-IV [facility] Last Admin: 09/01/19 09:34 Dose: 100 mls/hr Documented by: Sodium Chloride (Normal Saline -) 1,000 mls @ 75 mls/hr IV ASDIR [facility] Last Admin: 09/01/19 12:58 Dose: 75 mls/hr Documented by: Ceftriaxone Sodium 1 gm/ (Dextrose) 50 mls @ 100 mls/hr IVPB DAILY [facility] Last Admin: 09/01/19 09:34 Dose: 100 mls/hr Documented by: Lorazepam (Ativan Injection -) 2 mg IVPUSH Q4H PRN PRN Reason: WITHDRAWAL(CONT SUBST) Metoclopramide HCl (Reglan Injection -) 10 mg IVPB Q8H-IV [facility] Last Admin: 09/01/19 12:58 Dose: 10 mg Documented by: Multivitamins/Minerals/Vitamin C (Tab-A-Vit -) 1 tab PO DAILY [facility] Last Admin: 09/01/19 09:35 Dose: 1 tab Documented by: Pantoprazole Sodium (Protonix Iv) 40 mg IVPUSH DAILY [facility] Quetiapine Fumarate (Seroquel -) 50 mg PO BID [facility] Last Admin: 09/01/19 09:35 Dose: 50 mg Documented by: Sodium Chloride (Normal Saline -) 1,000 ml IV ONCE [facility] Last Admin: 09/01/19 04:48 Dose: Not Given Documented by: Thiamine HCl (Vitamin B1 -) 100 mg PO DAILY [facility] Last Admin: 09/01/19 09:36 Dose: 100 mg Documented by: Tramadol HCl (Ultram -) 50 mg PO Q6H PRN PRN Reason: PAIN 4-6 Last Admin: 09/01/19 07:15 Dose: 50 mg Documented by: - Objective Vital Signs: Vital Signs Temperature 98 F 09/01/19 09:00 Pulse Rate 98 H 09/01/19 09:00 Respiratory Rate 18 09/01/19 09:00 Blood Pressure 114/63 09/01/19 09:00 O2 Sat by Pulse Oximetry (%) 95 08/31/19 21:00 Labs: CBC, BMP 09/01/19 06:37 09/01/19 06:37 INR, PTT INR 1.15 (0.83-1.09) H 08/30/19 05:30
--- NOTE | 2019-09-01 16:01 | PN ---
Teaching Attending Note Name of Resident: Mary Poole ATTENDING PHYSICIAN STATEMENT I saw and evaluated the patient. I reviewed the resident's note and discussed the case with the resident. I agree with the resident's findings and plan as documented. SUBJECTIVE: she feels better today. No fever ro chills. still with sore throat, R ear pain, and change in her voice No abd pain, diarrhea, or SOB , CP OBJECTIVE: pain in throat and R ear. No fever or chills. has diarrhea but it improved form watery to more formed stool. no N.V now. no abd pain. no hematochezia last drink 3 days ago. OBJECTIVE: NAD, cooperative MMM, oropharynx with erythema on both sides, no exudate , R submandibular painful lymph node is still the same. slight bulge of the R sided submandibular area compared to L . . CV: RRR, 2/6 SM at LLSB. Lungs: CTAB Abd: soft, NT, Nd , NL BS, obese Ext: No edema or erythema ASSESSMENT AND PLAN: 44 y/o lady with h/o pancreatitis , ETOH abuse, who presented with N/V , and diarrhea . 1-Possible R sided colitis : - cont Abx - follow stool cx and c diff 2- Pharyngitis : rapid strep neg , follow cx - get CT of neck due to persistent change in voice and tenderness. - on Abx any way 3- ETOH use. no signs of withdrawal -cont librium protocol -cont thiamine and folate 4- Hypokalemia,: replete 5- Liver lesion , seen on US. MRI of abd in 2017 report reviewed. at that time lesion had intermediate suspicion for HCC. and a 4 month follow up MRI was recommended . will d/w patient what w/u was done prior to admission 5- dvt px . LOVENOX advance diet CT scan is neg
[2019-09-01] MEDS ORDERED: POTASSIUM CHLORIDE ORAL LIQUID 20 MEQ/15 ML PO ONE (16:07)
--- NOTE | 2019-09-01 18:43 | PN ---
Progress Note (short form) - Note Progress Note: no nausea and vomitng, ate 100 percent of her dinner abd ultrasound-- no liver lesons
--- NOTE | 2019-09-01 21:10 | PN ---
Physical Exam: SUBJECTIVE: Patient seen and examined bedside. In no acute distress. No events overnight. Her throat pain is still bothering her and radiating towards her ear. OBJECTIVE: Vital Signs Period Temp Pulse Resp BP Sys/Suárez Pulse Ox Last 24 Hr 97.4 F-98.2 F 72-98 18-20 104-130/45-75 95-98 GENERAL: The patient is awake, alert, and fully oriented, in no acute distress. EYES: PERRL, extraocular movements intact, sclera anicteric, conjunctiva clear. No ptosis. NECK: Left sided mildy tender sub mandibular lymph node on palpation. LUNGS: Breath sounds equal, clear to auscultation bilaterally, no wheezes, no crackles. HEART: Regular rate and rhythm, S1, S2 without murmur, rub or gallop. ABDOMEN: Soft, nontender, nondistended, normoactive bowel sounds, no guarding, no rebound, no hepatosplenomegaly, no masses. EXTREMITIES: 2+ pulses, warm, well-perfused, no edema. NEUROLOGICAL: Normal speech, gait not observed. PSYCH: Normal mood, normal affect. Laboratory Results - last 24 hr 09/01/19 09/01/19 09/01/19 02:35 06:37 06:37 WBC 5.5 RBC 3.19 L Hgb 10.3 L Hct 31.0 L MCV 97.1 H MCH 32.2 MCHC 33.1 RDW 17.8 H Plt Count 107 L MPV 9.1 Sodium 142 143 Potassium 3.5 3.3 L Chloride 109 H 111 H Carbon Dioxide 25 26 Anion Gap 7 L 7 L BUN 3.6 L 4.3 L Creatinine 0.5 L 0.4 L Est GFR (CKD-EPI)AfAm 135.47 145.79 Est GFR (CKD-EPI)NonAf 116.89 125.79 Random Glucose 94 98 Calcium 7.7 L 7.5 L Phosphorus 3.4 3.4 Magnesium 2.0 2.0 Total Bilirubin 0.4 AST 11 L ALT 15 Alkaline Phosphatase 57 Total Protein 5.2 L Albumin 2.7 L Active Medications Generic Name Dose Route Start Last Admin Trade Name Freq PRN Reason Stop Dose Admin Benzocaine/Menthol 1 each 08/30/19 09:45 08/31/19 09:37 Cepacol Lozenge - MM 1 each PRN PRN Administration SORE THROAT Chlordiazepoxide HCl 10 mg 09/02/19 00:00 Librium - PO 09/02/19 23:59 Q12H PRN Signs/symptoms of Withdrawal Chlordiazepoxide HCl 10 mg 08/30/19 10:21 Librium - PO 09/01/19 23:59 Q8H PRN Signs/symptoms of Withdrawal Chlordiazepoxide HCl 15 mg 09/01/19 05:00 09/01/19 13:00 Librium - PO 09/01/19 21:01 15 mg Q8H DERICK Administration Chlordiazepoxide HCl 10 mg 09/02/19 05:00 Librium - PO 09/02/19 21:01 Q8H DERICK Chlordiazepoxide HCl 10 mg 09/03/19 05:00 Librium - PO 09/03/19 05:01 ONCE ONE Enoxaparin Sodium 40 mg 08/30/19 10:00 09/01/19 09:35 Lovenox - SQ 40 mg DAILY DERICK Administration Folic Acid 1 mg 08/31/19 10:00 09/01/19 09:35 Folic Acid - PO 1 mg DAILY DERICK Administration Metronidazole 500 mg in 100 mls @ 100 mls/hr 08/30/19 10:00 09/01/19 17:30 Flagyl 500mg Premixed Ivpb - IVPB 100 mls/hr Q8H-IV DERICK Administration Sodium Chloride 1,000 mls @ 75 mls/hr 08/30/19 10:15 09/01/19 12:58 Normal Saline - IV 75 mls/hr ASDIR DERICK Administration Ceftriaxone Sodium 1 gm/ 50 mls @ 100 mls/hr 08/31/19 14:25 09/01/19 09:34 Dextrose IVPB 100 mls/hr DAILY DERICK Administration Lorazepam 2 mg 08/30/19 10:52 Ativan Injection - IVPUSH Q4H PRN WITHDRAWAL(CONT SUBST) Metoclopramide HCl 10 mg 09/01/19 12:30 09/01/19 17:30 Reglan Injection - IVPB 10 mg Q8H-IV DERICK Administration Multivitamins/Minerals/Vitamin C 1 tab 08/31/19 10:00 09/01/19 09:35 Tab-A-Vit - PO 1 tab DAILY DERICK Administration Pantoprazole Sodium 40 mg 09/02/19 10:00 Protonix Iv IVPUSH DAILY DERICK Quetiapine Fumarate 50 mg 08/30/19 22:00 09/01/19 09:35 Seroquel - PO 50 mg BID DERICK Administration Sodium Chloride 1,000 ml 08/30/19 05:00 09/01/19 04:48 Normal Saline - IV Not Given ONCE DERICK Thiamine HCl 100 mg 08/31/19 10:00 09/01/19 09:36 Vitamin B1 - PO 100 mg DAILY DERICK Administration Tramadol HCl 50 mg 08/30/19 15:47 09/01/19 15:17 Ultram - PO 50 mg Q6H PRN Administration PAIN 4-6 ASSESSMENT/PLAN: 44F w/ pmhx of pancreatitis, GERD, ETOH use disorder, presenting today with sore throat, nausea and vomiting, admitted for acute alcohol withdrawal and hypokalemia. Colitis; CTAP findings +mild colitis in R colon, WBC 19.3 with L shift -In ED, given IV Ciprofloxacin/Metronidazole. - switched to IV Ceftriaxone 1g due to community resistance, & continue IV Metronidazole 500 Q8H - GI consulted - stool cultures/wbc/&parasites ordered to rule out cdiff and other infectious causes - GI wanted to perform EGD but patient refused Pharyngitis - b/c no change and on IV antbx - CT Neck w/contrast to r/o abscess>> CT was negative -Rapid strep neg. -Throat culture ordered -Cepachol lozenges prn Electrolyte Depletion Electrolytes have been repleated, continue to monitor Intractable Vomiting; resolved -Symptoms have subsided since admission -Zofran for nausea PRN -Protonix 40 PO QD -CTAP findings showed mild colitis; on metronidazole and ceftriaxone Acute Alcohol Withdrawal; CIWA score 0 today -Librium protocol -Cont to monitor for symptoms -Ativan 2 mg Q4H PRN for withdrawal Insomnia; Cont home med: Seroquel 50 BID Prophylaxis DVT: Lovenox GI: Protonix 40 IV FEN -NS @ 75 -Clear liquid diet for now, advance as tolerated Dispo -admit to tele given electrolyte disturbance; can downgrade once resolved as pt is otherwise hemodynamically stable -COVID Negative Visit type - Emergency Visit Emergency Visit: Yes ED Registration Date: 08/30/19 Care time: The patient presented to the Emergency Department on the above date and was hospitalized for further evaluation of their emergent condition. - New Patient This patient is new to me today: No - Critical Care Critical Care patient: No - Discharge Referral Referred to [facility] Med P.C.: Yes Physician Referral: Jim Tolliver DO (Neph) ATTENDING PHYSICIAN STATEMENT I saw and evaluated the patient. I reviewed the resident's note and discussed the case with the resident. I agree with the resident's findings and plan as documented. SUBJECTIVE: OBJECTIVE: ASSESSMENT AND PLAN:
[2019-09-01] MEDS ORDERED: HYDROCORTISONE 0.5% TOPICAL CREAM 30 GM TUBE TP ONE (21:58)
[2019-09-02] MEDS ORDERED: chlordiazePOXIDE HCL 10 MG CAPSULE PO PRN
[2019-09-02] MEDS: METOCLOPRAMIDE HCL INJECTION 10 MG/2 ML VIAL IVPB SCH ×2 (02:45→09:19)
[2019-09-02] MEDS: chlordiazePOXIDE HCL 10 MG CAPSULE PO SCH ×2 (05:53→13:17)
[2019-09-02] MEDS: SODIUM CHLORIDE 0.9% 1000 ML INFUS.BAG IV SCH ×2 (05:53→05:54)
[2019-09-02] MEDS: BENZOCAINE/MENTH/CETYLPYRD CL 1 EACH LOZENGE MM PRN ×2 (06:32→09:20)
[2019-09-02 07:29] VITALS: TEMP 97.8
[2019-09-02 08:04] LABS: HEMATOCRIT 32.2 % (32.4-45.2); HEMOGLOBIN 10.8 GM/dL (10.7-15.3); MCH 33.1 pg (25.7-33.7); MCHC 33.4 g/dl (32.0-36.0); MEAN CELL VOLUME 98.9 fl (80-96); MEAN PLT VOLUME 9.6 fl (7.5-11.1); PLATELET COUNT 112 K/MM3 (134-434); RBC 3.25 M/mm3 (3.60-5.2); RDW 18.4 % (11.6-15.6)
[2019-09-02 08:30] LABS: ALBUMIN 2.8 g/dl (3.4-5.0); BILIRUBIN,TOTAL 0.5 mg/dL (0.2-1); BLOOD UREA NITROGEN 3.9 mg/dL (7-18); CALCIUM 7.9 mg/dL (8.5-10.1); CREATININE 0.5 mg/dL (0.55-1.3); MAGNESIUM 1.7 mg/dL (1.8-2.4); PHOSPHOROUS 4.1 mg/dL (2.5-4.9); POTASSIUM 3.6 mmol/L (3.5-5.1); TOT PROT 5.5 g/dl (6.4-8.2)
[2019-09-02] MEDS ORDERED: DEXTROSE 5%-WATER - 50 ML IVPB ONE (08:52)
[2019-09-02] MEDS ORDERED: cefTRIAXone SODIUM 1 GM VIAL ONE (08:52)
[2019-09-02] MEDS: CEFTRIAXONE 1 GM in DEXTROSE 5%-WATER - 50 ML IVPB SCH (09:19)
[2019-09-02] MEDS: ENOXAPARIN NA (PORCINE) 40 MG/0.4 ML DISP.SYRIN SQ SCH (09:20)
[2019-09-02] MEDS: QUEtiapine FUMARATE 50 MG TABLET PO SCH (09:20)
[2019-09-02] MEDS: FOLIC ACID 1 MG TABLET (FP) PO SCH (09:20)
[2019-09-02] MEDS: MULTIVITAMINS (DAILY MVI) TABLET (FP) PO SCH (09:20)
[2019-09-02] MEDS: THIAMINE HCL 100 MG TABLET (FP) PO SCH (09:21)
[2019-09-02] MEDS: SODIUM CHLORIDE 1,000 ML IV SCH (09:21)
[2019-09-02] MEDS ORDERED: PANTOPRAZOLE SODIUM 40 MG VIAL IVPUSH SCH (10:00)
[2019-09-02] MEDS: traMADol HCL 50 MG TABLET PO PRN (10:01)
--- NOTE | 2019-09-02 12:34 | PN ---
Progress Note, Physician History of Present Illness: feels better rt side of throat still hurting able to swallow though - Current Medication List Current Medications: Active Medications Benzocaine/Menthol (Cepacol Lozenge -) 1 each MM PRN PRN PRN Reason: SORE THROAT Last Admin: 09/02/19 09:20 Dose: 1 each Documented by: Chlordiazepoxide HCl (Librium -) 10 mg PO Q12H PRN PRN Reason: Signs/symptoms of Withdrawal Stop: 09/02/19 23:59 Chlordiazepoxide HCl (Librium -) 10 mg PO Q8H DERICK Stop: 09/02/19 21:01 Last Admin: 09/02/19 05:53 Dose: 10 mg Documented by: Chlordiazepoxide HCl (Librium -) 10 mg PO ONCE ONE Stop: 09/03/19 05:01 Enoxaparin Sodium (Lovenox -) 40 mg SQ DAILY DERICK Last Admin: 09/02/19 09:20 Dose: 40 mg Documented by: Folic Acid (Folic Acid -) 1 mg PO DAILY DERICK Last Admin: 09/02/19 09:20 Dose: 1 mg Documented by: Metronidazole (Flagyl 500mg Premixed Ivpb -) 500 mg in 100 mls @ 100 mls/hr IVPB Q8H-IV DERICK Last Admin: 09/02/19 09:19 Dose: 100 mls/hr Documented by: Sodium Chloride (Normal Saline -) 1,000 mls @ 75 mls/hr IV ASDIR [facility] Last Admin: 09/02/19 09:21 Dose: 75 mls/hr Documented by: Ceftriaxone Sodium 1 gm/ (Dextrose) 50 mls @ 100 mls/hr IVPB DAILY DERICK Last Admin: 09/02/19 09:19 Dose: 100 mls/hr Documented by: Metoclopramide HCl (Reglan Injection -) 10 mg IVPB Q8H-IV DERICK Last Admin: 09/02/19 09:19 Dose: 10 mg Documented by: Multivitamins/Minerals/Vitamin C (Tab-A-Vit -) 1 tab PO DAILY [facility] Last Admin: 09/02/19 09:20 Dose: 1 tab Documented by: Pantoprazole Sodium (Protonix Iv) 40 mg IVPUSH DAILY [facility] Last Admin: 09/02/19 09:19 Dose: 40 mg Documented by: Quetiapine Fumarate (Seroquel -) 50 mg PO BID [facility] Last Admin: 09/02/19 09:20 Dose: 50 mg Documented by: Sodium Chloride (Normal Saline -) 1,000 ml IV ONCE [facility] Last Admin: 09/02/19 05:54 Dose: Not Given Documented by: Thiamine HCl (Vitamin B1 -) 100 mg PO DAILY [facility] Last Admin: 09/02/19 09:21 Dose: 100 mg Documented by: Tramadol HCl (Ultram -) 50 mg PO Q6H PRN PRN Reason: PAIN 4-6 Last Admin: 09/02/19 10:01 Dose: 50 mg Documented by: - Objective Vital Signs: Vital Signs Temperature 97.8 F 09/02/19 08:39 Pulse Rate 89 09/02/19 08:39 Respiratory Rate 18 09/02/19 08:41 Blood Pressure 120/69 09/02/19 08:39 O2 Sat by Pulse Oximetry (%) 98 09/02/19 08:41 Constitutional: Yes: No Distress, Calm, Obese Neck: Yes: Supple, Other Cardiovascular: Yes: S1, S2 Respiratory: Yes: Regular, CTA Bilaterally Gastrointestinal: Yes: Normal Bowel Sounds, Soft Musculoskeletal: Yes: WNL Extremities: Yes: WNL Neurological: Yes: Alert, Oriented Psychiatric: Yes: Alert, Oriented Labs: CBC, BMP 09/02/19 07:10 09/02/19 07:10 INR, PTT INR 1.15 (0.83-1.09) H 08/30/19 05:30 Assessment/Plan 44F w/ pmhx of pancreatitis, GERD, ETOH use disorder, presenting today with sore throat, nausea and vomiting, admitted for acute alcohol withdrawal and hypokalemia. vomiting etoh withdrawl pharyngitis colitis rash plan patient improving continue current mgmt
[2019-09-02 15:02] VITALS: BP 114/60; PULSE 81
--- NOTE | 2019-09-02 16:26 | PN ---
Teaching Attending Note Name of Resident: Mary Poole ATTENDING PHYSICIAN STATEMENT I saw and evaluated the patient. I reviewed the resident's note and discussed the case with the resident. I agree with the resident's findings and plan as documented. SUBJECTIVE: mild paininthroat. and neck. no fever or chills or diarrhea or abd pain OBJECTIVE: NAD, cooperative looks much better MMM, oropharynx with decreaed erythema on both sides, no exudate CV: RRR, 2/6 SM at LLSB. Lungs: CTAB Abd: soft, NT, Nd , NL BS, obese Ext: No edema or erythema ASSESSMENT AND PLAN: 44 y/o lady with h/o pancreatitis , ETOH abuse, who presented with N/V , and diarrhea . 1-Possible R sided colitis: - d/w Dr. Jorgensen by team. Augmentin is recommended fro 3 more days 2- Pharyngitis : rapid strep neg ,cx neg . Ct with no abscess 3- ETOH use. no signs of withdrawal finished protocol. counseled 4- Hypokalemia,: resolved 5- Liver lesion , seen on US. MRI of abd in 2017 showed lesion with intermediate suspicion for HCC. patient follows with a liver specialist and follows withDr. estevez. last time she had imaging for this lesion was 1 yr ago. she was advised to follow up to r/o HCC dc home
[2019-09-02] MEDS ORDERED: chlordiazePOXIDE HCL 10 MG CAPSULE PO ONE (20:00)
--- NOTE | 2019-09-02 20:51 | DS ---
Physical Exam: SUBJECTIVE: Patient seen and examined bedside in no acute distress. No events overnight. OBJECTIVE: Vital Signs Period Temp Pulse Resp BP Sys/Suárez Pulse Ox Last 24 Hr 97.5 F-98.1 F 63-89 17-20 106-129/60-71 98-98 PHYSICAL EXAM GENERAL: The patient is awake, alert, and fully oriented, in no acute distress. EYES: PERRL, extraocular movements intact, sclera anicteric, conjunctiva clear. No ptosis. NECK: Left sided mildy tender sub mandibular lymph node on palpation, less tender than before LUNGS: Breath sounds equal, clear to auscultation bilaterally, no wheezes, no crackles. HEART: Regular rate and rhythm, S1, S2 without murmur, rub or gallop. ABDOMEN: Soft, nontender, nondistended, normoactive bowel sounds, no guarding, no rebound, no hepatosplenomegaly, no masses. EXTREMITIES: 2+ pulses, warm, well-perfused, no edema. PSYCH: Normal mood, normal affect. LABS Laboratory Results - last 24 hr 09/02/19 09/02/19 07:10 07:10 WBC 5.0 RBC 3.25 L Hgb 10.8 Hct 32.2 L MCV 98.9 H MCH 33.1 MCHC 33.4 RDW 18.4 H Plt Count 112 L MPV 9.6 Sodium 142 Potassium 3.6 Chloride 110 H Carbon Dioxide 27 Anion Gap 6 L BUN 3.9 L Creatinine 0.5 L Est GFR (CKD-EPI)AfAm 135.47 Est GFR (CKD-EPI)NonAf 116.89 Random Glucose 96 Calcium 7.9 L Phosphorus 4.1 Magnesium 1.7 L Total Bilirubin 0.5 AST 17 ALT 25 Alkaline Phosphatase 59 Total Protein 5.5 L Albumin 2.8 L HOSPITAL COURSE: Patient presented to the hospital with a 2 day history of sore throat and 1 day of nausea and vomiting. She also admitted to be drinking at least a bottle of wine a night for months and stopped drinking on Thursday. Rapid Strep was negative. A CT abdomen/pelvis was done and showed hepatomegaly with diffuse fatty infiltration of liver. As well as, findings suspicious for mild colitis, most marked within Right colon. Colonoscopy. She was admitted for acute alcohol withdrawal as well as workup and treatment for her colitis. She was placed on IV Ciprofloxacin and Metronidazole and librium protocol. Patient also had hypokalemia which was corrected. Her throat was roving can tender with pain radiating to her right ear so a CT neck was done to rule out deep abscess - is showed prominent tonsils without evidence of peritonsillar abscess. Patient was discharged on 3 days of augmentin. A Liver lesion seen on US was consistent with her MRI of abdomen in 2017, which also showed a lesion with intermediate suspicion for HCC. Patient follows with a liver specialist and follows with Dr. Hart. Was urged to follow up with specialist outpatient to rule out HCC. Date of Admission:08/30/19 Date of Discharge: 09/02/19 Minutes to complete discharge: 30 Discharge Summary Problems reviewed: Yes Reason For Visit: ALCOHOL WITHDRWAL SYNDROME,COLITIS Condition: Improved - Instructions Diet, Activity, Other Instructions: Visit: You came to the hospital with nausea, vomiting, a sore throat and acute alcohol withdrawal. You had a CT scan of you abdomen and pelvis and it showed your liver was enlarged and mild inflammation in your right colon. You were started on IV antibiotics with much improvement of your abdominal pain. Due to alcohol and vomiting your electrolytes were also very low. We corrected your fluids and electrolytes. Your sore throat tested negative for strep and to rule out any deeper infection, you had a neck CT scan. The scan was negative for any deeper infections. You also had an ultrasound of your liver that showed a possible spot on your liver that needs regular follow-up. Medications: We are discharging you on an antibiotic: Augmentin 875/125 mg twice a day for 3 days. start tomorrow morning please take thiamine 100mg, once daily please take folic acid 1mg, once daily Follow up Please see your primary care physician within 2 weeks of being discharged to follow up with your symptoms. If you don't have one, please call [facility] to make an appointment in our clinic. Please see your liver specialist and follow up on your liver spot. follow up with Dr. Hart in 1 week Referrals: Hansel Mock MD [Primary Care Provider] - Solo Hart DO [Staff Physician] - Disposition: HOME - Home Medications Comprehensive Discharge Medication List: Ambulatory Orders Quetiapine Fumarate [Seroquel -] 50 mg PO BID 08/30/19 Amoxicillin/Potassium Clav [Augmentin 875-125 Tablet] 1 each PO BID 3 Days #6 tablet 09/02/19 Folic Acid - 1 mg PO DAILY #30 tablet 09/02/19 Thiamine HCl [Vitamin B1 -] 100 mg PO DAILY #30 tablet 09/02/19 This patient is new to me today: No Date on this admission: 08/30/19 Emergency Visit: Yes ED Registration Date: 08/30/19 Care time: The patient presented to the Emergency Department on the above date and was hospitalized for further evaluation of their emergent condition. Critical Care patient: No - Discharge Referral Referred to [facility] Med P.C.: Yes Physician Referral: Zhen Hart DO (GI) ATTENDING PHYSICIAN STATEMENT I saw and evaluated the patient. I reviewed the resident's note and discussed the case with the resident. I agree with the resident's findings and plan as documented. SUBJECTIVE: OBJECTIVE: ASSESSMENT AND PLAN:
[2019-09-03] MEDS ORDERED: chlordiazePOXIDE HCL 10 MG CAPSULE PO ONE (05:00)
== END 2019-09-02 17:42 | disposition home or self-care (01) | DRG 775 ==
LOC: JER 04:25 → JERBED 08:45 → J4W 08-31 05:13
PROVIDERS: ADMIT Internal Medicine; ATTEND Internal Medicine
PROC: HZ2ZZZZ Detoxification Services for Substance Abuse Treatment (ICD-10-PCS; principal; 2019-08-30)
DX: F10.239 Alcohol dependence with withdrawal, unspecified (principal); J02.9 Acute pharyngitis, unspecified; E87.6 Hypokalemia; R00.0 Tachycardia, unspecified; K86.0 Alcohol-induced chronic pancreatitis; G47.00 Insomnia, unspecified; K21.9 Gastro-esophageal reflux disease without esophagitis; D72.829 Elevated white blood cell count, unspecified; E66.9 Obesity, unspecified; Z68.35 Body mass index [BMI] 35.0-35.9, adult; R63.0 Anorexia; K52.9 Noninfective gastroenteritis and colitis, unspecified; R21 Rash and other nonspecific skin eruption; J45.909 Unspecified asthma, uncomplicated; E87.2 Acidosis; K76.0 Fatty (change of) liver, not elsewhere classified; E83.42 Hypomagnesemia; E83.39 Other disorders of phosphorus metabolism; K76.89 Other specified diseases of liver; R59.1 Generalized enlarged lymph nodes
CPT/HCPCS: 36415; 70450-TC; 70491-TC; 71045-TC-FY; 74177-TC; 76705-TC; 80048; 80053; 81003; 82248; 82550; 82728; 83605; 83690; 83735; 84100; 84132; 84484; 84703; 85025; 85027; 85610; 85730; 86140; 87045; 87046; 87070; 87177; 87205; 87209; 87324; 87449; 87880; 93005; 93010; 99285-25; Q9967; U0003

== ENCOUNTER 2020-08-02 19:47 | Emergency (ER) | payer OTHER ==
[2020-08-02 20:20] VITALS: BP 152/93; PULSE 99; TEMP 98.7; BMI 34.4
[2020-08-02] MEDS ORDERED: SODIUM CHLORIDE 0.9% 500 ML INFUS.BAG IV ONE (21:12)
[2020-08-02] MEDS ORDERED: chlordiazePOXIDE HCL 25 MG CAPSULE PO ONE (21:12)
[2020-08-02] MEDS ORDERED: FAMOTIDINE 20 MG/50 ML IVPB 20 MG/50 ML MG IVPB ONE ×2 (21:13→21:22)
[2020-08-02] MEDS ORDERED: MAG HYDROX/AL HYDROX/SIMETH 30 ML UNIT-DOSE CUP PO ONE (21:13)
[2020-08-02] MEDS ORDERED: ONDANSETRON 4 MG/2 ML VIAL IVPUSH ONE (21:13)
[2020-08-02] MEDS ORDERED: MAG HYDROX/AL HYDROX/SIMETH 30 ML UNIT-DOSE CUP ONE (21:22)
[2020-08-02] MEDS ORDERED: chlordiazePOXIDE HCL 25 MG CAPSULE ONE (21:22)
[2020-08-02] MEDS ORDERED: ONDANSETRON 4 MG/2 ML VIAL ONE (21:22)
[2020-08-02 22:03] LABS: EOS % 0.9 % (0-4.5); HEMATOCRIT 41.8 % (32.4-45.2); HEMOGLOBIN 14.7 GM/dL (10.7-15.3); LYMPH % 40.2 % (8-40); MCH 31.7 pg (25.7-33.7); MCHC 35.2 g/dl (32.0-36.0); MEAN CELL VOLUME 90.1 fl (80-96); MEAN PLT VOLUME 9.8 fl (7.5-11.1); MONO % 4.3 % (3.8-10.2); NEUT % 53.6 % (42.8-82.8); PLATELET COUNT 184 K/MM3 (134-434); RBC 4.64 M/mm3 (3.60-5.2); RDW 15.3 % (11.6-15.6); WHITE BLOOD COUNT 8.8 K/mm3 (4.0-10.0)
[2020-08-02 22:17] LABS: ALBUMIN 3.7 g/dl (3.4-5.0); CALCIUM 8.6 mg/dL (8.5-10.1)
[2020-08-02 22:18] LABS: MAGNESIUM 1.7 mg/dL (1.8-2.4)
[2020-08-02 22:21] LABS: CREATININE 0.6 mg/dL (0.55-1.3)
[2020-08-02 22:22] LABS: TOT PROT 7.7 g/dl (6.4-8.2)
[2020-08-02 22:25] LABS: BLOOD UREA NITROGEN 12.4 mg/dL (7-18)
[2020-08-02 23:20] LABS: HCG,QUALITATIVE URINE Negative
[2020-08-02 23:21] LABS: PH,URINE 5.5 (5.0-8.0); URINE APPEARANCE CLEAR; URINE BILIRUBIN NEGATIVE (NEGATIVE); URINE COLOR YELLOW; URINE GLUCOSE (UA) NEGATIVE (NEGATIVE); URINE KETONE NEGATIVE (NEGATIVE); URINE LEUK ESTERASE NEGATIVE (NEGATIVE); URINE NITRITE NEGATIVE (NEGATIVE); URINE PROTEIN NEGATIVE (NEGATIVE); URINE UROBILINOGEN 0.2 mg/dL (0.2-1.0)
[2020-08-02 23:24] LABS: COCAINE, UR NEGATIVE ng/ml (CUTOFF=300); URINE AMPHETAMINES NEGATIVE ng/ml (CUTOFF=500); URINE BARBITURATES NEGATIVE ng/ml (CUTOFF=200); URINE BENZODIAZEPINES NEGATIVE ng/ml (CUTOFF=200)
[2020-08-02 23:25] LABS: METHADONE, UR NEGATIVE ng/ml (CUTOFF=300); OPIATES, URI NEGATIVE ng/ml (CUTOFF=300); PHENCYCLIDINE,URINE NEGATIVE ng/ml (CUTOFF=25)
== END 2020-08-02 23:32 | disposition home or self-care (01) ==
LOC: JER 19:47
PROC: 3E033GC Introduction of Other Therapeutic Substance into Peripheral Vein, Percutaneous Approach (ICD-10-PCS; principal; 2020-08-02)
PROC: 3E033GC Introduction of Other Therapeutic Substance into Peripheral Vein, Percutaneous Approach (ICD-10-PCS; 2020-08-02)
DX: F10.10 Alcohol abuse, uncomplicated (principal); R11.2 Nausea with vomiting, unspecified
CPT/HCPCS: 36415; 80053; 80307; 81003; 83690; 83735; 84703; 85025; 87086; 87186; 99284-25

== ENCOUNTER 2021-04-11 15:11 | Emergency (ER) | payer OTHER ==
[2021-04-11 15:52] VITALS: BP 122/75; PULSE 89; TEMP 98.1; BMI 36.0
[2021-04-11] MEDS ORDERED: ONDANSETRON 4 MG/2 ML VIAL IVPUSH ONE ×2 (16:54→22:32)
[2021-04-11] MEDS ORDERED: chlordiazePOXIDE HCL 25 MG CAPSULE PO ONE ×2 (16:54→22:35)
[2021-04-11] MEDS ORDERED: FOLIC ACID INJECTION - 1 MG, THIAMINE HCL 100 MG, MULTIVIT INJECTION ADULT 10 ML in SOD... IVPB ONE (16:55)
[2021-04-11] MEDS ORDERED: ONDANSETRON 4 MG/2 ML VIAL ONE ×2 (17:04→22:41)
[2021-04-11] MEDS ORDERED: chlordiazePOXIDE HCL 25 MG CAPSULE ONE ×2 (17:04→22:40)
[2021-04-11 17:33] LABS: EOS % 1.9 % (0-4.5); HEMOGLOBIN 12.4 GM/dL (10.7-15.3); LYMPH % 45.1 % (8-40); MCH 32.1 pg (25.7-33.7); MCHC 33.6 g/dl (32.0-36.0); MEAN CELL VOLUME 95.7 fl (80-96); MEAN PLT VOLUME 8.7 fl (7.5-11.1); MONO % 6.3 % (3.8-10.2); NEUT % 45.7 % (42.8-82.8); PLATELET COUNT 144 10^3/uL (134-434); RBC 3.87 M/mm3 (3.60-5.2); RDW 23.9 % (11.6-15.6); WHITE BLOOD COUNT 5.8 K/mm3 (4.0-10.0)
[2021-04-11 17:58] LABS: CALCIUM 8.1 mg/dL (8.5-10.1)
[2021-04-11 17:59] LABS: ALBUMIN 3.2 g/dl (3.4-5.0); BLOOD UREA NITROGEN 8.1 mg/dL (7-18); MAGNESIUM 1.4 mg/dL (1.8-2.4)
[2021-04-11 18:01] LABS: PHOSPHOROUS 3.5 mg/dL (2.5-4.9)
[2021-04-11 18:02] LABS: CREATININE 0.5 mg/dL (0.55-1.3)
[2021-04-11 18:03] LABS: BILIRUBIN,TOTAL 0.4 mg/dL (0.2-1); TOT PROT 6.5 g/dl (6.4-8.2)
[2021-04-11 19:49] LABS: ANISOCYTOSIS 3+; MACROCYTOSIS 0
== END 2021-04-11 23:08 | disposition home or self-care (01) ==
LOC: JER 15:11
PROC: 3E033GC Introduction of Other Therapeutic Substance into Peripheral Vein, Percutaneous Approach (ICD-10-PCS; principal; 2021-04-11)
PROC: 3E033GC Introduction of Other Therapeutic Substance into Peripheral Vein, Percutaneous Approach (ICD-10-PCS; 2021-04-11)
PROC: 3E033GC Introduction of Other Therapeutic Substance into Peripheral Vein, Percutaneous Approach (ICD-10-PCS; 2021-04-11)
DX: F10.20 Alcohol dependence, uncomplicated (principal)
CPT/HCPCS: 36415; 71046-TC-FY; 80053; 80307; 83690; 83735; 84100; 85025; 86850; 86900; 86901; 87651; 93005; 93010; 99285-25; C9803; U0003; U0005

== ENCOUNTER 2021-04-22 04:54 | Inpatient (IN) | payer OTHER ==
[2021-04-22 05:08] VITALS: BMI 34.4
[2021-04-22] MEDS ORDERED: diazePAM CARPU-JECT 10 MG/2 ML DISP.SYRIN IVPUSH ONE ×3 (05:12→09:00)
[2021-04-22] MEDS ORDERED: FOLIC ACID INJECTION - 1 MG, THIAMINE HCL 100 MG, MULTIVIT INJECTION ADULT 10 ML in SOD... IVPB ONE (05:12)
[2021-04-22] MEDS ORDERED: SODIUM CHLORIDE 1,000 ML IV STA (05:15)
[2021-04-22] MEDS ORDERED: THIAMINE HCL 200 MG/2 ML VIAL IVPB ONE (05:16)
[2021-04-22] MEDS ORDERED: FOLIC ACID 1 MG TABLET (FP) PO ONE (05:16)
[2021-04-22] MEDS ORDERED: MULTIVITAMINS (DAILY MVI) TABLET (FP) PO ONE (05:17)
[2021-04-22] MEDS ORDERED: chlordiazePOXIDE HCL 25 MG CAPSULE PO ONE (05:18)
[2021-04-22] MEDS ORDERED: diazePAM CARPU-JECT 10 MG/2 ML DISP.SYRIN ONE (05:22)
[2021-04-22] MEDS ORDERED: FOLIC ACID 1 MG TABLET (FP) ONE (05:22)
[2021-04-22] MEDS ORDERED: THIAMINE HCL 200 MG/2 ML VIAL ONE (05:22)
[2021-04-22] MEDS ORDERED: MULTIVITAMINS (DAILY MVI) TABLET (FP) ONE (05:24)
[2021-04-22] MEDS ORDERED: chlordiazePOXIDE HCL 25 MG CAPSULE ONE ×3 (05:40→18:10)
[2021-04-22 05:49] LABS: BASO % 0.7 % (0-2.0); EOS % 0.1 % (0-4.5); HEMATOCRIT 40.8 % (32.4-45.2); HEMOGLOBIN 13.7 GM/dL (10.7-15.3); LYMPH % 12.6 % (8-40); MCH 33.1 pg (25.7-33.7); MCHC 33.5 g/dl (32.0-36.0); MEAN CELL VOLUME 98.8 fl (80-96); MEAN PLT VOLUME 8.8 fl (7.5-11.1); MONO % 5.7 % (3.8-10.2); NEUT % 80.9 % (42.8-82.8); PLATELET COUNT 207 10^3/uL (134-434); RBC 4.13 M/mm3 (3.60-5.2); RDW 24.8 % (11.6-15.6)
[2021-04-22 06:10] LABS: ALBUMIN 3.6 g/dl (3.4-5.0); BLOOD UREA NITROGEN 9.8 mg/dL (7-18); MAGNESIUM 1.2 mg/dL (1.8-2.4)
[2021-04-22 06:13] LABS: CREATININE 0.9 mg/dL (0.55-1.3)
[2021-04-22 06:14] LABS: BILIRUBIN,TOTAL 2.2 mg/dL (0.2-1); TOT PROT 7.8 g/dl (6.4-8.2)
[2021-04-22] MEDS ORDERED: ONDANSETRON 4 MG/2 ML VIAL IVPB ONE (06:41)
[2021-04-22] MEDS ORDERED: BUPRENORPHINE/NALOXONE 8 MG/2 MG FILM PACKET SL ONE (06:41)
[2021-04-22 06:52] LABS: ANISOCYTOSIS 2+; MACROCYTOSIS 0; OVALOCYTE 1+; ROULEAU 1+; TEAR DROP CELLS 1+
[2021-04-22] MEDS ORDERED: BUPRENORPHINE/NALOXONE 8 MG/2 MG FILM PACKET ONE (07:02)
[2021-04-22] MEDS ORDERED: ONDANSETRON 4 MG/2 ML VIAL ONE (07:02)
[2021-04-22] MEDS ORDERED: MAGNESIUM SULF 50% (8.12 MEQ/2 ML-1 GM VIAL) IVPB ONE (08:46)
[2021-04-22] MEDS ORDERED: TRIMETHOBENZAMIDE HCL 200MG/2ML INJ IM PRN (09:20)
[2021-04-22] MEDS ORDERED: chlordiazePOXIDE HCL 25 MG CAPSULE PO PRN (09:24)
[2021-04-22] MEDS ORDERED: PANTOPRAZOLE SODIUM 40 MG/100 ML BAG IVPB ONE (09:58)
[2021-04-22] MEDS ORDERED: MAGNESIUM SULFATE IN WATER 2 GM/50 ML IVPB IVPB ONE (09:59)
[2021-04-22] MEDS ORDERED: CALCIUM GLUCONATE 10% - 1,000 MG/10 ML VIAL IVPB ONE (10:00)
[2021-04-22] MEDS: PANTOPRAZOLE SODIUM 40 MG VIAL IVPUSH SCH ×2 (10:26→10:27)
[2021-04-22] MEDS ORDERED: CALCIUM GLUCONATE 10% - 1,000 MG/10 ML VIAL ONE (10:36)
[2021-04-22] MEDS ORDERED: ENOXAPARIN NA (PORCINE) 40 MG/0.4 ML DISP.SYRIN SQ ONE (10:36)
[2021-04-22] MEDS: SODIUM CHLORIDE 1,000 ML IV SCH (10:51)
[2021-04-22] MEDS: chlordiazePOXIDE HCL 25 MG CAPSULE PO SCH ×3 (10:51→22:08)
[2021-04-22] MEDS: ENOXAPARIN NA (PORCINE) 40 MG/0.4 ML DISP.SYRIN SQ SCH (10:51)
[2021-04-22 11:12] LABS: CALCIUM 7.7 mg/dL (8.5-10.1)
[2021-04-22 11:13] LABS: BLOOD UREA NITROGEN 9.9 mg/dL (7-18)
[2021-04-22 11:16] LABS: CREATININE 0.9 mg/dL (0.55-1.3)
[2021-04-22] MEDS ORDERED: POTASSIUM CHLORIDE TABS 20 MEQ TABLET.ER (FP) PO ONE ×2 (12:30→14:25)
[2021-04-22] MEDS ORDERED: KCL 10 MEQ IVPB 20 MEQ/200 ML INFUS.BAG IVPB ONE (14:25)
[2021-04-22] MEDS: KCL 10 MEQ IVPB 10 MEQ/100 ML INFUS.BAG IVPB SCH ×3 (14:30→18:15)
[2021-04-22 15:40] LABS: EPI CELLS >36 /uL (0-25.1); HYALINE CASTS 70 /uL (0-3.1); URINE APPEARANCE CLOUDY; URINE BACTERIA 4652 /uL (0-1359); URINE BILIRUBIN 1+ (NEGATIVE); URINE COLOR ORANGE; URINE GLUCOSE (UA) NEGATIVE (NEGATIVE); URINE KETONE 3+ (NEGATIVE); URINE LEUK ESTERASE NEGATIVE (NEGATIVE); URINE NITRITE NEGATIVE (NEGATIVE); URINE PROTEIN 1+ (NEGATIVE); URINE RBC 7 /uL (0-23.9); URINE WBC 39 /uL (0-25.8)
[2021-04-22 15:49] LABS: METHADONE, UR NEGATIVE (NEGATIVE); PHENCYCLIDINE,URINE NEGATIVE (NEGATIVE)
[2021-04-22 15:50] LABS: COCAINE, UR NEGATIVE (NEGATIVE); OPIATES, URI NEGATIVE (NEGATIVE); URINE BARBITURATES NEGATIVE (NEGATIVE)
[2021-04-22 15:59] LABS: URINE AMPHETAMINES NEGATIVE (NEGATIVE); URINE BENZODIAZEPINES POSITIVE (NEGATIVE)
[2021-04-22] MEDS ORDERED: KCL 10 MEQ IVPB 10 MEQ/100 ML INFUS.BAG IVPB ONE (18:10)
[2021-04-22] MEDS ORDERED: PANTOPRAZOLE 40 MG TABLET PO ONE (21:35)
[2021-04-22] MEDS ORDERED: PANTOPRAZOLE 40 MG TABLET PO SCH (21:45)
[2021-04-22] MEDS: QUEtiapine FUMARATE 50 MG TABLET PO SCH (22:09)
[2021-04-23] MEDS: chlordiazePOXIDE HCL 25 MG CAPSULE PO SCH ×4 (05:11→22:17)
[2021-04-23] MEDS: SODIUM CHLORIDE 1,000 ML IV SCH ×3 (05:13→22:20)
[2021-04-23] MEDS: BENZOCAINE/MENTH/CETYLPYRD CL 1 EACH LOZENGE MM PRN ×2 (06:40→13:45)
[2021-04-23 09:53] LABS: BASO % 0.6 % (0-2.0); EOS % 2.7 % (0-4.5); HEMATOCRIT 31.5 % (32.4-45.2); HEMOGLOBIN 10.5 GM/dL (10.7-15.3); MCHC 33.3 g/dl (32.0-36.0); MEAN PLT VOLUME 8.8 fl (7.5-11.1); MONO % 3.4 % (3.8-10.2); NEUT % 70.3 % (42.8-82.8); PLATELET COUNT 111 10^3/uL (134-434); RBC 3.09 M/mm3 (3.60-5.2)
[2021-04-23 10:01] LABS: INR 1.09 (0.83-1.09); PROTHROMBIN TIME (PATIENT) 12.6 SEC (9.7-13.0)
[2021-04-23 10:04] LABS: ACTIVATED PTT 29.4 SECONDS (25.2-36.5)
[2021-04-23] MEDS: PANTOPRAZOLE SODIUM 40 MG VIAL IVPUSH SCH (10:11)
[2021-04-23] MEDS: QUEtiapine FUMARATE 50 MG TABLET PO SCH ×4 (10:12→21:33)
[2021-04-23] MEDS: ENOXAPARIN NA (PORCINE) 40 MG/0.4 ML DISP.SYRIN SQ SCH (10:12)
[2021-04-23] MEDS: FOLIC ACID 1 MG TABLET (FP) PO SCH (10:13)
[2021-04-23] MEDS: THIAMINE HCL 100 MG TABLET (FP) PO SCH (10:13)
[2021-04-23] MEDS: MULTIVIT-MINERALS ORAL LIQUID PO SCH (10:15)
[2021-04-23 10:17] LABS: CHLORIDE 100 mmol/L (98-107); SODIUM 136 mmol/L (136-145)
[2021-04-23 10:24] LABS: ANION GAP 5 MMOL/L (8-16); BLOOD UREA NITROGEN 6.9 mg/dL (7-18); CO2 31 mmol/L (21-32)
[2021-04-23 10:25] LABS: GLUCOSE,RANDOM 103 mg/dL (74-106); MAGNESIUM 1.6 mg/dL (1.8-2.4)
[2021-04-23 10:27] LABS: SGPT/ALT 33 U/L (13-61)
[2021-04-23 10:28] LABS: CREATININE 0.7 mg/dL (0.55-1.3); PHOSPHOROUS 2.4 mg/dL (2.5-4.9); SGOT/AST 22 U/L (15-37)
[2021-04-23 10:29] LABS: BILIRUBIN,TOTAL 1.7 mg/dL (0.2-1); TOT PROT 5.9 g/dl (6.4-8.2)
[2021-04-23 10:37] LABS: ALK PHOS 80 U/L (45-117); CALCIUM 6.9 mg/dL (8.5-10.1)
[2021-04-23] MEDS ORDERED: CALCIUM GLUCONATE 10% - 1,000 MG/10 ML VIAL IVPB ONE ×2 (11:15→16:30)
[2021-04-23 12:54] LABS: BLOOD UREA NITROGEN 7.8 mg/dL (7-18)
[2021-04-23 12:57] LABS: CREATININE 0.8 mg/dL (0.55-1.3)
[2021-04-23] MEDS ORDERED: NAPH,MB-DB/K PH,MBDB POWDER PACKET PO ONE (15:49)
[2021-04-23] MEDS ORDERED: MAGNESIUM 1GM/D5W 100ML - 100 ML IVPB IVPB ONE (15:49)
[2021-04-23] MEDS: POTASSIUM CHLORIDE ORAL LIQUID 20 MEQ/15 ML PO SCH ×2 (16:35→21:32)
[2021-04-23] MEDS ORDERED: PSYLLIUM 5.85 GM PACKET PO ONE (20:07)
[2021-04-24] MEDS: chlordiazePOXIDE HCL 25 MG CAPSULE PO SCH ×4 (05:43→23:02)
[2021-04-24 09:43] LABS: HEMATOCRIT 28.5 % (32.4-45.2); HEMOGLOBIN 9.8 GM/dL (10.7-15.3); MCH 35.3 pg (25.7-33.7); MCHC 34.4 g/dl (32.0-36.0); MEAN CELL VOLUME 102.6 fl (80-96); MEAN PLT VOLUME 8.8 fl (7.5-11.1); PLATELET COUNT 93 10^3/uL (134-434); RBC 2.78 M/mm3 (3.60-5.2); RDW 23.1 % (11.6-15.6); WHITE BLOOD COUNT 5.7 K/mm3 (4.0-10.0)
[2021-04-24 10:36] LABS: TOT PROT 5.3 g/dl (6.4-8.2)
[2021-04-24 10:40] LABS: BLOOD UREA NITROGEN 4.7 mg/dL (7-18); CALCIUM 7.1 mg/dL (8.5-10.1); PHOSPHOROUS 2.8 mg/dL (2.5-4.9)
[2021-04-24 10:41] LABS: ALBUMIN 2.6 g/dl (3.4-5.0); BILIRUBIN,TOTAL 0.8 mg/dL (0.2-1)
[2021-04-24 10:42] LABS: CREATININE 0.5 mg/dL (0.55-1.3)
[2021-04-24 10:43] LABS: MAGNESIUM 1.9 mg/dL (1.8-2.4)
[2021-04-24] MEDS: SODIUM CHLORIDE 1,000 ML IV SCH (10:49)
[2021-04-24] MEDS: ENOXAPARIN NA (PORCINE) 40 MG/0.4 ML DISP.SYRIN SQ SCH (10:49)
[2021-04-24] MEDS: PANTOPRAZOLE SODIUM 40 MG VIAL IVPUSH SCH (10:50)
[2021-04-24] MEDS: MULTIVIT-MINERALS ORAL LIQUID PO SCH (10:50)
[2021-04-24] MEDS: QUEtiapine FUMARATE 50 MG TABLET PO SCH ×4 (10:51→23:01)
[2021-04-24] MEDS: THIAMINE HCL 100 MG TABLET (FP) PO SCH (10:52)
[2021-04-24] MEDS: FOLIC ACID 1 MG TABLET (FP) PO SCH (10:52)
[2021-04-24] MEDS ORDERED: POTASSIUM CHLORIDE TABS 20 MEQ TABLET.ER (FP) PO ONE (13:14)
[2021-04-24] MEDS ORDERED: CALCIUM GLUCONATE 10% - 1,000 MG/10 ML VIAL IVPB ONE (14:40)
[2021-04-25] MEDS ORDERED: chlordiazePOXIDE HCL 10 MG CAPSULE PO PRN
[2021-04-25] MEDS: chlordiazePOXIDE HCL 10 MG CAPSULE PO SCH ×4 (05:55→22:04)
[2021-04-25] MEDS ORDERED: POTASSIUM CHLORIDE ORAL LIQUID 20 MEQ/15 ML PO ONE (06:01)
[2021-04-25] MEDS ORDERED: POLYETHYLENE GLYCOL (HEALTHYLAX) 3350 17 GM PACKET PO ONE (06:02)
[2021-04-25 09:27] LABS: HEMATOCRIT 30.6 % (32.4-45.2); HEMOGLOBIN 10.4 GM/dL (10.7-15.3); MCH 35.1 pg (25.7-33.7); MEAN CELL VOLUME 103.3 fl (80-96); MEAN PLT VOLUME 8.8 fl (7.5-11.1); PLATELET COUNT 119 10^3/uL (134-434); RBC 2.96 M/mm3 (3.60-5.2); RDW 22.8 % (11.6-15.6); WHITE BLOOD COUNT 5.2 K/mm3 (4.0-10.0)
[2021-04-25 09:40] LABS: ALBUMIN 2.8 g/dl (3.4-5.0); BLOOD UREA NITROGEN 5.8 mg/dL (7-18); MAGNESIUM 1.6 mg/dL (1.8-2.4)
[2021-04-25 09:42] LABS: BILIRUBIN,TOTAL 0.5 mg/dL (0.2-1); TOT PROT 5.7 g/dl (6.4-8.2)
[2021-04-25 09:43] LABS: CREATININE 0.5 mg/dL (0.55-1.3); PHOSPHOROUS 3.5 mg/dL (2.5-4.9)
[2021-04-25] MEDS ORDERED: POLYETHYLENE GLYCOL (HEALTHYLAX) 3350 17 GM PACKET PO SCH (10:00)
[2021-04-25 10:16] LABS: CALCIUM 8.3 mg/dL (8.5-10.1)
[2021-04-25] MEDS: FOLIC ACID 1 MG TABLET (FP) PO SCH (10:29)
[2021-04-25] MEDS: THIAMINE HCL 100 MG TABLET (FP) PO SCH (10:29)
[2021-04-25] MEDS: QUEtiapine FUMARATE 50 MG TABLET PO SCH ×4 (10:29→21:09)
[2021-04-25] MEDS: SENNOSIDES 8.6MG TABLET (FP) PO SCH ×2 (10:29→21:09)
[2021-04-25] MEDS: PANTOPRAZOLE SODIUM 40 MG VIAL IVPUSH SCH (10:30)
[2021-04-25] MEDS: MULTIVIT-MINERALS ORAL LIQUID PO SCH (10:30)
[2021-04-25] MEDS: ENOXAPARIN NA (PORCINE) 40 MG/0.4 ML DISP.SYRIN SQ SCH (10:30)
[2021-04-25] MEDS ORDERED: MAGNESIUM 1GM/D5W 100ML - 100 ML IVPB IVPB ONE (13:00)
[2021-04-25] MEDS: POLYETHYLENE GLYCOL (HEALTHYLAX) 3350 17 GM PACKET PO SCH (22:03)
[2021-04-26] MEDS: chlordiazePOXIDE HCL 10 MG CAPSULE PO SCH ×2 (05:40→17:22)
[2021-04-26 08:11] LABS: HEMATOCRIT 29.2 % (32.4-45.2); HEMOGLOBIN 9.9 GM/dL (10.7-15.3); MCH 35.4 pg (25.7-33.7); MEAN CELL VOLUME 104.3 fl (80-96); MEAN PLT VOLUME 9.2 fl (7.5-11.1); PLATELET COUNT 142 10^3/uL (134-434)
[2021-04-26 08:42] LABS: BLOOD UREA NITROGEN 7.1 mg/dL (7-18); CALCIUM 8.8 mg/dL (8.5-10.1)
[2021-04-26 08:43] LABS: MAGNESIUM 1.3 mg/dL (1.8-2.4)
[2021-04-26 08:45] LABS: CREATININE 0.6 mg/dL (0.55-1.3)
[2021-04-26] MEDS: MULTIVIT-MINERALS ORAL LIQUID PO SCH (09:19)
[2021-04-26] MEDS: THIAMINE HCL 100 MG TABLET (FP) PO SCH (09:21)
[2021-04-26] MEDS: ENOXAPARIN NA (PORCINE) 40 MG/0.4 ML DISP.SYRIN SQ SCH (09:21)
[2021-04-26] MEDS: FOLIC ACID 1 MG TABLET (FP) PO SCH (09:21)
[2021-04-26] MEDS: PANTOPRAZOLE SODIUM 40 MG VIAL IVPUSH SCH (09:21)
[2021-04-26] MEDS: POLYETHYLENE GLYCOL (HEALTHYLAX) 3350 17 GM PACKET PO SCH ×2 (09:22→21:14)
[2021-04-26] MEDS: QUEtiapine FUMARATE 50 MG TABLET PO SCH ×4 (09:27→21:14)
[2021-04-26] MEDS ORDERED: MAGNESIUM 2GM/50ML STERILE WATER IVPB IVPB ONE (11:30)
[2021-04-26 21:13] VITALS: BP 147/86; PULSE 83; TEMP 98.7
[2021-04-27] MEDS ORDERED: chlordiazePOXIDE HCL 10 MG CAPSULE PO ONE (05:00)
== END 2021-04-27 05:16 | disposition home or self-care (01) | DRG 775 ==
LOC: JER 04:54 → JERBED 05:25 → J7W 21:22
PROVIDERS: ADMIT Internal Medicine; ATTEND Internal Medicine
DX: F10.230 Alcohol dependence with withdrawal, uncomplicated (principal); R00.0 Tachycardia, unspecified; E83.42 Hypomagnesemia; E83.51 Hypocalcemia; E87.6 Hypokalemia; R94.31 Abnormal electrocardiogram [ECG] [EKG]; E80.6 Other disorders of bilirubin metabolism; D72.829 Elevated white blood cell count, unspecified; E83.39 Other disorders of phosphorus metabolism; R11.2 Nausea with vomiting, unspecified; K29.20 Alcoholic gastritis without bleeding; D53.9 Nutritional anemia, unspecified; K76.0 Fatty (change of) liver, not elsewhere classified
CPT/HCPCS: 36415; 71045-TC-FY; 76705-TC; 80048; 80053; 80307; 81003; 82607; 82746; 83690; 83735; 84100; 85025; 85027; 85610; 85730; 87086; 93005; 93010; 99285-25; C9803; U0003; U0005

== ENCOUNTER 2021-07-05 07:05 | Inpatient (IN) | payer OTHER ==
[2021-07-05 07:22] VITALS: BMI 34.4
[2021-07-05] MEDS ORDERED: SODIUM CHLORIDE 0.9% 500 ML INFUS.BAG IV ONE ×2 (07:47→08:54)
[2021-07-05] MEDS ORDERED: ONDANSETRON 4 MG/2 ML VIAL IVPB ONE (07:48)
[2021-07-05] MEDS ORDERED: ACETAMINOPHEN 1000 MG/100 ML BAG IVPB ONE (07:48)
[2021-07-05] MEDS ORDERED: DEXAMETHASONE SOD PHOSPHATE 10 MG/1 ML VIAL IVPUSH ONE (07:51)
[2021-07-05] MEDS ORDERED: DEXAMETHASONE SOD PHOSPHATE 10 MG/1 ML VIAL ONE (07:58)
[2021-07-05] MEDS ORDERED: ONDANSETRON 4 MG/2 ML VIAL ONE (07:58)
[2021-07-05] MEDS ORDERED: ACETAMINOPHEN INJECTION 100 ML IVPB ONE (07:58)
[2021-07-05 08:10] LABS: VENOUS BASE EXCESS -0.3 mmol/L (-2-2); VENOUS PCO2 36.5 mmHg (38-52); VENOUS PH 7.429 (7.310-7.410)
[2021-07-05] MEDS: ALBUTEROL SO4 2.5/IPRATROPIUM 0.5 INH SOL 3 ML VIAL.NEB. NEB SCH ×3 (08:10→09:05)
[2021-07-05 08:11] LABS: BASO % 0.9 % (0-2.0); EOS % 0.8 % (0-4.5); HEMATOCRIT 37.1 % (32.4-45.2); HEMOGLOBIN 12.8 GM/dL (10.7-15.3); LYMPH % 12.2 % (8-40); MCH 34.8 pg (25.7-33.7); MCHC 34.6 g/dl (32.0-36.0); MEAN CELL VOLUME 100.8 fl (80-96); MONO % 2.9 % (3.8-10.2); NEUT % 83.2 % (42.8-82.8); PLATELET COUNT 82 10^3/uL (134-434); RBC 3.69 M/mm3 (3.60-5.2); RDW 19.2 % (11.6-15.6); WHITE BLOOD COUNT 4.7 K/mm3 (4.0-10.0)
[2021-07-05 08:26] LABS: INR 1.12 (0.83-1.09); PROTHROMBIN TIME (PATIENT) 12.9 SEC (9.7-13.0)
[2021-07-05 08:29] LABS: ACTIVATED PTT 31.7 SECONDS (25.2-36.5)
[2021-07-05 08:32] LABS: CHLORIDE 100 mmol/L (98-107); SODIUM 137 mmol/L (136-145)
[2021-07-05 08:34] LABS: CALCIUM 7.6 mg/dL (8.5-10.1)
[2021-07-05 08:35] LABS: ALBUMIN 3.3 g/dl (3.4-5.0); ANION GAP 11 MMOL/L (8-16); CO2 26 mmol/L (21-32); GLUCOSE,RANDOM 154 mg/dL (74-106)
[2021-07-05 08:38] LABS: CREATININE 0.5 mg/dL (0.55-1.3); SGOT/AST 135 U/L (15-37); SGPT/ALT 98 U/L (13-61)
[2021-07-05 08:39] LABS: BILIRUBIN,TOTAL 0.7 mg/dL (0.2-1); TOT PROT 6.5 g/dl (6.4-8.2)
[2021-07-05 08:41] LABS: ALK PHOS 117 U/L (45-117); N-TERMINAL BNP 28.4 pg/ml (5-125)
[2021-07-05 08:48] LABS: LACTIC ACID 2.9 mmol/L (0.4-2.0)
[2021-07-05] MEDS ORDERED: chlordiazePOXIDE HCL 25 MG CAPSULE PO ONE (08:49)
[2021-07-05] MEDS ORDERED: chlordiazePOXIDE HCL 25 MG CAPSULE ONE (09:01)
[2021-07-05] MEDS ORDERED: FOLIC ACID INJECTION - 1 MG, THIAMINE HCL 100 MG, MULTIVIT INJECTION ADULT 10 ML in SOD... IVPB ONE (11:00)
[2021-07-05] MEDS ORDERED: ALBUTEROL SO4 2.5/IPRATROPIUM 0.5 INH SOL 3 ML VIAL.NEB. NEB PRN (11:38)
[2021-07-05] MEDS: chlordiazePOXIDE HCL 25 MG CAPSULE PO SCH ×3 (12:26→22:31)
[2021-07-05] MEDS: QUEtiapine FUMARATE 50 MG TABLET PO SCH ×3 (14:01→21:15)
[2021-07-05] MEDS: methylPREDNISolone NA SUCC 40 MG/1 ML VIAL IVPUSH SCH (18:58)
[2021-07-05] MEDS: ACETAMINOPHEN 325 MG TABLET (FP) PO PRN (18:59)
[2021-07-05] MEDS: rOPINIRole HCL 0.5 MG TABLET PO SCH (21:15)
[2021-07-05] MEDS: guaiFENesin/D-M SUGAR-FREE/ACLHOL-FREE 5 ML UNIT DOSE PO PRN (22:32)
[2021-07-05] MEDS: MELATONIN 5 MG TABLETS PO PRN (22:32)
[2021-07-06] MEDS: methylPREDNISolone NA SUCC 40 MG/1 ML VIAL IVPUSH SCH ×3 (01:52→18:05)
[2021-07-06] MEDS: chlordiazePOXIDE HCL 25 MG CAPSULE PO SCH ×4 (04:57→23:14)
[2021-07-06 08:42] LABS: HEMATOCRIT 34.9 % (32.4-45.2); HEMOGLOBIN 11.9 GM/dL (10.7-15.3); MCH 34.7 pg (25.7-33.7); MCHC 34.2 g/dl (32.0-36.0); MEAN CELL VOLUME 101.7 fl (80-96); MEAN PLT VOLUME 9.2 fl (7.5-11.1); PLATELET COUNT 74 10^3/uL (134-434); RBC 3.43 M/mm3 (3.60-5.2); RDW 19.4 % (11.6-15.6); WHITE BLOOD COUNT 8.8 K/mm3 (4.0-10.0)
[2021-07-06 09:16] LABS: BLOOD UREA NITROGEN 3.9 mg/dL (7-18); CALCIUM 7.2 mg/dL (8.5-10.1); MAGNESIUM 1.2 mg/dL (1.8-2.4)
[2021-07-06 09:19] LABS: CREATININE 0.5 mg/dL (0.55-1.3)
[2021-07-06 09:20] LABS: BILIRUBIN,TOTAL 1.1 mg/dL (0.2-1)
[2021-07-06 10:19] LABS: ANISOCYTOSIS 0; HELMET CELLS 0; HOWELL-JOLLY BODIES 0; MACROCYTOSIS 0; OVALOCYTE 0; ROULEAU 0; SICKELED CELLS 0; TARGET CELLS 0; TEAR DROP CELLS 0; TOXIC GRANULATION 0
[2021-07-06] MEDS: QUEtiapine FUMARATE 50 MG TABLET PO SCH ×4 (10:20→21:48)
[2021-07-06] MEDS: FOLIC ACID 1 MG TABLET (FP) PO SCH (10:20)
[2021-07-06] MEDS: PANTOPRAZOLE 40 MG TABLET PO SCH (10:20)
[2021-07-06] MEDS: THIAMINE HCL 200 MG/2 ML VIAL IM SCH (10:20)
[2021-07-06 16:23] LABS: LACTIC ACID 2.6 mmol/L (0.4-2.0)
[2021-07-06] MEDS: guaiFENesin/D-M SUGAR-FREE/ACLHOL-FREE 5 ML UNIT DOSE PO PRN (18:28)
[2021-07-06] MEDS: rOPINIRole HCL 0.5 MG TABLET PO SCH (21:48)
[2021-07-07] MEDS: methylPREDNISolone NA SUCC 40 MG/1 ML VIAL IVPUSH SCH ×3 (02:30→21:56)
[2021-07-07] MEDS: guaiFENesin/D-M SUGAR-FREE/ACLHOL-FREE 5 ML UNIT DOSE PO PRN ×3 (03:45→17:38)
[2021-07-07] MEDS: chlordiazePOXIDE HCL 25 MG CAPSULE PO SCH ×4 (05:50→22:04)
[2021-07-07] MEDS: FOLIC ACID 1 MG TABLET (FP) PO SCH (10:14)
[2021-07-07] MEDS: PANTOPRAZOLE 40 MG TABLET PO SCH (10:14)
[2021-07-07] MEDS: THIAMINE HCL 200 MG/2 ML VIAL IM SCH (10:18)
[2021-07-07] MEDS ORDERED: SODIUM CHLORIDE 0.9% 500 ML INFUS.BAG IV ONE (10:32)
[2021-07-07] MEDS: QUEtiapine FUMARATE 50 MG TABLET PO SCH ×4 (10:35→21:56)
[2021-07-07] MEDS ORDERED: methylPREDNISolone NA SUCC 40 MG/1 ML VIAL IVPUSH SCH (12:00)
[2021-07-07 13:08] LABS: HEMATOCRIT 34.6 % (32.4-45.2); HEMOGLOBIN 11.7 GM/dL (10.7-15.3); MCH 34.4 pg (25.7-33.7); MCHC 33.9 g/dl (32.0-36.0); MEAN CELL VOLUME 101.6 fl (80-96); MEAN PLT VOLUME 9.3 fl (7.5-11.1); PLATELET COUNT 63 10^3/uL (134-434); RBC 3.41 M/mm3 (3.60-5.2); WHITE BLOOD COUNT 9.4 K/mm3 (4.0-10.0)
[2021-07-07 13:26] LABS: CALCIUM 7.2 mg/dL (8.5-10.1)
[2021-07-07 13:27] LABS: ALBUMIN 3.1 g/dl (3.4-5.0); BLOOD UREA NITROGEN 8.8 mg/dL (7-18)
[2021-07-07 13:30] LABS: CREATININE 0.7 mg/dL (0.55-1.3)
[2021-07-07 13:32] LABS: BILIRUBIN,TOTAL 1.3 mg/dL (0.2-1); TOT PROT 6.1 g/dl (6.4-8.2)
[2021-07-07 13:48] LABS: ANISOCYTOSIS 0; HELMET CELLS 0; HOWELL-JOLLY BODIES 0; MACROCYTOSIS 0; OVALOCYTE 0; ROULEAU 0; SICKELED CELLS 0; TARGET CELLS 0; TEAR DROP CELLS 0; TOXIC GRANULATION 0
[2021-07-07 13:50] LABS: LACTIC ACID 3.5 mmol/L (0.4-2.0)
[2021-07-07] MEDS: rOPINIRole HCL 0.5 MG TABLET PO SCH (21:55)
[2021-07-07] MEDS: MELATONIN 5 MG TABLETS PO PRN (21:55)
[2021-07-08] MEDS: chlordiazePOXIDE HCL 25 MG CAPSULE PO SCH ×4 (05:29→23:00)
[2021-07-08] MEDS ORDERED: POTASSIUM CHLORIDE TABS 20 MEQ TABLET.ER (FP) PO ONE ×2 (08:00→14:00)
[2021-07-08] MEDS: FOLIC ACID 1 MG TABLET (FP) PO SCH (09:52)
[2021-07-08] MEDS: PANTOPRAZOLE 40 MG TABLET PO SCH (09:52)
[2021-07-08] MEDS: DOXYCYCLINE HYCLATE 100 MG CAPSULE PO SCH ×2 (09:53→17:45)
[2021-07-08] MEDS: QUEtiapine FUMARATE 50 MG TABLET PO SCH ×4 (09:53→21:37)
[2021-07-08] MEDS: THIAMINE HCL 200 MG/2 ML VIAL IM SCH (09:53)
[2021-07-08] MEDS: methylPREDNISolone NA SUCC 40 MG/1 ML VIAL IVPUSH SCH ×3 (09:53→21:36)
[2021-07-08] MEDS ORDERED: methylPREDNISolone NA SUCC 40 MG/1 ML VIAL IVPUSH SCH (10:00)
[2021-07-08] MEDS ORDERED: methylPREDNISolone NA SUCC 125 MG/2 ML VIAL IVPB ONE (10:52)
[2021-07-08] MEDS: guaiFENesin/D-METHORPHAN TAB.ER.12H PO SCH ×2 (11:11→21:37)
[2021-07-08] MEDS: ACETAMINOPHEN 325 MG TABLET (FP) PO PRN (11:12)
[2021-07-08] MEDS ORDERED: methylPREDNISolone NA SUCC 40 MG/1 ML VIAL IVPB ONE (11:15)
[2021-07-08] MEDS: ALBUTEROL SO4 2.5/IPRATROPIUM 0.5 INH SOL 3 ML VIAL.NEB. NEB SCH ×3 (11:33→19:26)
[2021-07-08 12:35] LABS: HEMATOCRIT 34.1 % (32.4-45.2); HEMOGLOBIN 11.8 GM/dL (10.7-15.3); MCHC 34.6 g/dl (32.0-36.0); MEAN CELL VOLUME 100.9 fl (80-96); MEAN PLT VOLUME 9.4 fl (7.5-11.1); PLATELET COUNT 63 10^3/uL (134-434); RBC 3.37 M/mm3 (3.60-5.2); RDW 18.6 % (11.6-15.6); WHITE BLOOD COUNT 8.2 K/mm3 (4.0-10.0)
[2021-07-08 12:44] LABS: CALCIUM 7.2 mg/dL (8.5-10.1)
[2021-07-08 12:45] LABS: BLOOD UREA NITROGEN 9.3 mg/dL (7-18)
[2021-07-08 12:48] LABS: CREATININE 0.7 mg/dL (0.55-1.3)
[2021-07-08 12:50] LABS: BILIRUBIN,TOTAL 0.6 mg/dL (0.2-1); TOT PROT 6.2 g/dl (6.4-8.2)
[2021-07-08 13:06] LABS: LACTIC ACID 2.2 mmol/L (0.4-2.0)
[2021-07-08 14:03] LABS: ANISOCYTOSIS 1+; MACROCYTOSIS 0; PLATELET ESTIMATE DECREASED
[2021-07-08] MEDS: CODEINE SO4 30 MG TABLET PO PRN ×2 (14:21→21:37)
[2021-07-08] MEDS: ENOXAPARIN NA (PORCINE) 40 MG/0.4 ML DISP.SYRIN SQ SCH (17:44)
[2021-07-08] MEDS: MELATONIN 5 MG TABLETS PO PRN (21:36)
[2021-07-08] MEDS: rOPINIRole HCL 0.5 MG TABLET PO SCH (21:37)
[2021-07-08] MEDS: guaiFENesin/D-M SUGAR-FREE/ACLHOL-FREE 5 ML UNIT DOSE PO PRN (21:38)
[2021-07-09] MEDS: methylPREDNISolone NA SUCC 40 MG/1 ML VIAL IVPUSH SCH ×3 (01:30→17:13)
[2021-07-09] MEDS: CODEINE SO4 30 MG TABLET PO PRN ×2 (05:46→21:16)
[2021-07-09] MEDS: chlordiazePOXIDE HCL 25 MG CAPSULE PO SCH ×2 (05:47→10:19)
[2021-07-09] MEDS: ALBUTEROL SO4 2.5/IPRATROPIUM 0.5 INH SOL 3 ML VIAL.NEB. NEB SCH ×4 (07:21→19:38)
[2021-07-09 09:42] LABS: HEMATOCRIT 34.6 % (32.4-45.2); HEMOGLOBIN 11.8 GM/dL (10.7-15.3); MCH 34.8 pg (25.7-33.7); MCHC 34.2 g/dl (32.0-36.0); MEAN CELL VOLUME 101.7 fl (80-96); MEAN PLT VOLUME 9.9 fl (7.5-11.1); PLATELET COUNT 61 10^3/uL (134-434); RDW 19.1 % (11.6-15.6); WHITE BLOOD COUNT 8.8 K/mm3 (4.0-10.0)
[2021-07-09] MEDS: DOXYCYCLINE HYCLATE 100 MG CAPSULE PO SCH ×2 (10:19→16:59)
[2021-07-09] MEDS: ENOXAPARIN NA (PORCINE) 40 MG/0.4 ML DISP.SYRIN SQ SCH (10:20)
[2021-07-09] MEDS: FOLIC ACID 1 MG TABLET (FP) PO SCH (10:20)
[2021-07-09] MEDS: THIAMINE HCL 200 MG/2 ML VIAL IM SCH (10:20)
[2021-07-09] MEDS: QUEtiapine FUMARATE 50 MG TABLET PO SCH ×4 (10:21→21:22)
[2021-07-09] MEDS: PANTOPRAZOLE 40 MG TABLET PO SCH (10:21)
[2021-07-09 10:34] LABS: ANISOCYTOSIS 0; HELMET CELLS 0; HOWELL-JOLLY BODIES 0; MACROCYTOSIS 0; OVALOCYTE 0; ROULEAU 0; SICKELED CELLS 0; TARGET CELLS 0; TEAR DROP CELLS 0; TOXIC GRANULATION 0
[2021-07-09 10:53] LABS: CALCIUM 7.3 mg/dL (8.5-10.1)
[2021-07-09 10:56] LABS: CREATININE 0.7 mg/dL (0.55-1.3)
[2021-07-09] MEDS: guaiFENesin/D-M SUGAR-FREE/ACLHOL-FREE 5 ML UNIT DOSE PO PRN ×2 (11:39→21:22)
[2021-07-09] MEDS: guaiFENesin/D-METHORPHAN TAB.ER.12H PO SCH ×2 (11:39→21:16)
[2021-07-09] MEDS ORDERED: POTASSIUM CHLORIDE TABS 20 MEQ TABLET.ER (FP) PO ONE ×2 (16:46→22:00)
[2021-07-09] MEDS ORDERED: MAGNESIUM SULF 50% (8.12 MEQ/2 ML-1 GM VIAL) IVPB ONE (16:47)
[2021-07-09] MEDS: chlordiazePOXIDE HCL 10 MG CAPSULE PO SCH ×2 (17:12→22:30)
[2021-07-09] MEDS: rOPINIRole HCL 0.5 MG TABLET PO SCH (21:16)
[2021-07-09] MEDS: MELATONIN 5 MG TABLETS PO PRN (21:19)
[2021-07-10] MEDS: methylPREDNISolone NA SUCC 40 MG/1 ML VIAL IVPUSH SCH ×2 (01:30→09:54)
[2021-07-10] MEDS: chlordiazePOXIDE HCL 10 MG CAPSULE PO SCH ×2 (05:50→10:10)
[2021-07-10] MEDS: ALBUTEROL SO4 2.5/IPRATROPIUM 0.5 INH SOL 3 ML VIAL.NEB. NEB SCH ×3 (08:50→12:20)
[2021-07-10 09:04] LABS: HEMATOCRIT 36.1 % (32.4-45.2); HEMOGLOBIN 12.6 GM/dL (10.7-15.3); MCH 35.3 pg (25.7-33.7); MCHC 34.8 g/dl (32.0-36.0); MEAN CELL VOLUME 101.5 fl (80-96); MEAN PLT VOLUME 10.3 fl (7.5-11.1); PLATELET COUNT 101 10^3/uL (134-434); RBC 3.56 M/mm3 (3.60-5.2); RDW 19.9 % (11.6-15.6); WHITE BLOOD COUNT 10.3 K/mm3 (4.0-10.0)
[2021-07-10 09:25] LABS: ALBUMIN 3.3 g/dl (3.4-5.0); BLOOD UREA NITROGEN 14.9 mg/dL (7-18); CALCIUM 8.1 mg/dL (8.5-10.1)
[2021-07-10 09:28] LABS: TOT PROT 6.4 g/dl (6.4-8.2)
[2021-07-10 09:30] LABS: BILIRUBIN,TOTAL 0.6 mg/dL (0.2-1); PHOSPHOROUS 2.8 mg/dL (2.5-4.9)
[2021-07-10 09:31] LABS: CREATININE 0.7 mg/dL (0.55-1.3)
[2021-07-10] MEDS: FOLIC ACID 1 MG TABLET (FP) PO SCH (09:53)
[2021-07-10] MEDS: PANTOPRAZOLE 40 MG TABLET PO SCH (09:53)
[2021-07-10] MEDS: DOXYCYCLINE HYCLATE 100 MG CAPSULE PO SCH (09:54)
[2021-07-10] MEDS: QUEtiapine FUMARATE 50 MG TABLET PO SCH ×2 (09:54→14:35)
[2021-07-10] MEDS: ENOXAPARIN NA (PORCINE) 40 MG/0.4 ML DISP.SYRIN SQ SCH (09:55)
[2021-07-10] MEDS ORDERED: THIAMINE HCL 100 MG TABLET (FP) PO SCH (10:00)
[2021-07-10] MEDS: guaiFENesin/D-METHORPHAN TAB.ER.12H PO SCH (10:07)
[2021-07-10 10:55] LABS: PLATELET ESTIMATE DECREASED
[2021-07-10 15:25] VITALS: BP 138/74; PULSE 68; TEMP 97.6
== END 2021-07-10 16:48 | disposition home or self-care (01) | DRG 141 ==
LOC: JER 07:05 → JERBED 08:46 → J8W 10:46
PROVIDERS: ADMIT Internal Medicine
DX: J45.901 Unspecified asthma with (acute) exacerbation (principal); G25.81 Restless legs syndrome; E66.9 Obesity, unspecified; Z68.34 Body mass index [BMI] 34.0-34.9, adult; E87.2 Acidosis; F10.20 Alcohol dependence, uncomplicated; D69.6 Thrombocytopenia, unspecified; E87.6 Hypokalemia; F17.200 Nicotine dependence, unspecified, uncomplicated; R00.0 Tachycardia, unspecified; F41.9 Anxiety disorder, unspecified; K21.9 Gastro-esophageal reflux disease without esophagitis; I10 Essential (primary) hypertension; F10.280 Alcohol dependence with alcohol-induced anxiety disorder; F10.230 Alcohol dependence with withdrawal, uncomplicated
CPT/HCPCS: 0241U-QW; 36415; 71045-TC-FY; 80048; 80053; 80307; 82550; 82553; 82803; 83605; 83735; 83880; 84100; 84484; 85025; 85610; 85730; 86850; 86900; 86901; 87040; 87633; 93005; 93010; 94640; 99285-25; C9803-CS; J1100; U0003; U0005